=== PATIENT | male | born 1955 | race Caucasian/White ===

== ENCOUNTER 2017-10-18 09:35 | Inpatient (IN) | payer OTHER ==
[2017-10-18] MEDS: ACETAMINOPHEN 325 MG TAB PO ×2 (10:25→14:50)
[2017-10-18] MEDS: SODIUM CHLORIDE 0.9% 1L BAG IV* (10:25)
[2017-10-18] MEDS: CEFEPIME 2GM/50 ML (PMX) 50 ML IVPB (10:25)
[2017-10-18] MEDS: morphine 4 MG/ML VIAL IV (10:25)
[2017-10-18] MEDS: ONDANSETRON 4 MG INJ IV (10:25)
[2017-10-18 10:38] LABS: WHITE BLOOD COUNT 25.1 10^3/ul (4.8-10.8)
[2017-10-18 10:38] LABS: ABNORMAL IP MESSAGE 1; HEMATOCRIT 35.3 % (42.0-52.0); HEMOGLOBIN 11.2 g/dl (14.0-18.0); MEAN CORPUSCULAR HEMOGLOBIN 25.3 pg (29.0-33.0); MEAN CORPUSCULAR HGB CONC 31.7 g/dl (32.0-37.0); MEAN CORPUSCULAR VOLUME 79.7 fl (82.0-101.0); MEAN PLATELET VOLUME 10.4 fl (7.4-10.4); PLATELET COUNT 595 10^3/UL (140-415); POSITIVE DIFF @See below; RED BLOOD COUNT 4.43 10^6/ul (4.70-6.10); RED CELL DISTRIBUTION WIDTH 14.4 % (11.5-14.5)
[2017-10-18 10:40] LABS: ADD MAN DIFF? YES
[2017-10-18 10:53] LABS: INR 1.08; PROTIME 14.1 Sec (11.9-14.9); PT RATIO 1.1
[2017-10-18 10:55] LABS: ALANINE AMINOTRANSFERASE 41 IU/L (13-69); ALBUMIN 3.7 g/dl (3.3-4.9); ALBUMIN/GLOBULIN RATIO 0.84; ALKALINE PHOSPHATASE 123 IU/L (42-121); ANION GAP 19 (8-16); ASPARTATE AMINO TRANSFERASE 29 IU/L (15-46); BILIRUBIN,INDIRECT 0.4 mg/dl (0-1.1); BILIRUBIN,TOTAL 0.4 mg/dl (0.2-1.3); BLOOD UREA NITROGEN 27 mg/dl (7-20); CALCIUM 8.4 mg/dl (8.4-10.2); CARBON DIOXIDE 23 mmol/L (21-31); CHLORIDE 102 mmol/L (97-110); CREATININE 1.99 mg/dl (0.61-1.24); GLUCOSE 352 mg/dl (70-220); POTASSIUM 4.6 mmol/L (3.5-5.1); SODIUM 139 mmol/L (135-144); TOTAL PROTEIN 8.1 g/dl (6.1-8.1)
[2017-10-18 10:57] LABS: LACTIC ACID 4.3 mmol/L (0.5-2.0)
[2017-10-18 11:10] LABS: ANISOCYTOSIS 1+ (0-0); BAND NEUTROPHILS #M 0.5 10^3/ul (0.0-0.6); BAND NEUTROPHILS % (M) 2 % (0-4); HYPOCHROMASIA 1+ (0-0); LYMPHOCYTES #M 2.5 10^3/ul (0.8-2.9); LYMPHOCYTES % (M) 10 % (15-51); MONOCYTE #M 1.7 10^3/ul (0.3-0.9); MONOCYTES % (M) 7 % (0-11); PLATELET ESTIMATE NORMAL; POIKILOCYTOSIS 1+ (0-0); SEG NEUT #M 20.5 10^3/ul (1.7-7.5); SEGMENTED NEUTROPHILS (M) % 81 % (39-77)
[2017-10-18 11:11] LABS: TROPONIN-I 0.347 ng/ml (0.00-0.12)
[2017-10-18 11:13] LABS: ADD UMIC YES; UR ASCORBIC ACID NEGATIVE (NEGATIVE); UR BILIRUBIN (Dip) NEGATIVE (NEGATIVE); UR BLOOD (Dip) 1+ mg/dL (NEGATIVE); UR CLARITY CLOUDY (CLEAR); UR COLOR YELLOW (YELLOW); UR GLUCOSE (Dip) 2+ mg/dL (NEGATIVE); UR KETONES (Dip) TRACE mg/dL (NEGATIVE); UR LEUKOCYTE ESTERASE (Dip) NEGATIVE Leu/ul (NEGATIVE); UR MUCUS FEW /HPF (NONE SEEN); UR NITRITE (Dip) NEGATIVE (NEGATIVE); UR RBC 4 /HPF (0-5); UR SPECIFIC GRAVITY (Dip) 1.019 (1.003-1.030); UR SQUAMOUS EPITHELIAL CELL FEW /HPF (FEW); UR TOTAL PROTEIN (Dip) 3+ mg/dl (NEGATIVE); UR UROBILINOGEN (Dip) NEGATIVE (NEGATIVE); UR WBC 9 /HPF (0-5)
[2017-10-18] MEDS: VANCOMYCIN 1 GM (PMX) 250 ML IVPB (11:21)
[2017-10-18] MEDS: ASPIRIN 325 MG TAB PO (11:22)
[2017-10-18] MEDS ORDERED: DOCUSATE SODIUM 100 MG CAP PO (11:30)
[2017-10-18] MEDS ORDERED: AZITHROMYCIN 500MG/NS (PMX) 250 ML IV (11:30)
[2017-10-18] MEDS ORDERED: ONDANSETRON 4 MG INJ IV (11:30)
[2017-10-18] MEDS ORDERED: ACETAMINOPHEN 325 MG TAB PO (11:30)
[2017-10-18 11:34] LABS: PARTIAL THROMBOPLASTIN TIME 92.6 Sec (25.0-35.0)
[2017-10-18] MEDS ORDERED: DEXTROSE 50% 50 ML SYRINGE IV ×2 (12:00)
[2017-10-18] MEDS: INSULIN ASPART [NOVOLOG] 3 ML PEN SC ×3 (12:00→21:04)
[2017-10-18] MEDS ORDERED: GLUCAGON 1 MG INJ IM (12:00)
[2017-10-18] MEDS ORDERED: GLUCOSE GEL 15 GRAM TUBE BUCCAL (12:00)
[2017-10-18] MEDS ORDERED: GLUCOSE GEL 15 GRAM TUBE PO ×2 (12:00)
[2017-10-18 13:27] LABS: HEMOGLOBIN A1C 10.9 % (0-5.9)
[2017-10-18 13:54] LABS: IRON < 10 ug/dl (35-150)
[2017-10-18 14:01] LABS: TOTAL IRON BINDING CAPACITY 233 ug/dl (241-421)
[2017-10-18] MEDS: CEFTRIAXONE 1 GM/50 ML (PMX) 50 ML IVPB (14:51)
[2017-10-18] MEDS: SOD CHLORIDE 0.9% 1,000 ML IV ×2 (14:52→21:48)
[2017-10-18 15:37] LABS: LACTIC ACID 2.1 mmol/L (0.5-2.0)
[2017-10-18 17:15] LABS: CREATINE KINASE 263 IU/L (23-200)
[2017-10-18 17:27] LABS: CK INDEX 1.5
[2017-10-18 17:31] LABS: CK-MB 3.87 ng/ml (0.0-2.4); TROPONIN-I 0.647 ng/ml (0.00-0.12)
[2017-10-18] MEDS: AZITHROMYCIN 500MG/NS (PMX) 250 ML IV (17:43)
[2017-10-18] MEDS ORDERED: CEPASTAT LOZENGE MT (18:30)
[2017-10-18 19:22] LABS: CREATINE KINASE 276 IU/L (23-200)
[2017-10-18 19:36] LABS: CK INDEX 1.5
[2017-10-18 19:44] LABS: CK-MB 4.18 ng/ml (0.0-2.4); TROPONIN-I 0.777 ng/ml (0.00-0.12)
[2017-10-18] MEDS: GUAIFENESIN/DM 5ML CUP PO (20:07)
[2017-10-18] MEDS: ALBUTEROL 0.083% (NEB) 2.5 MG/3 ML AMP HHN (20:42)
[2017-10-18] MEDS: ATORVASTATIN 40 MG TAB PO (21:00)
[2017-10-18] MEDS: INSULIN GLARGINE [LANtus] 3 ML PEN SC (21:05)
[2017-10-18] MEDS: ENOXAPARIN 60 MG/0.6 ML SYG SC (21:06)
[2017-10-18] MEDS: morphine 2 MG INJ IV (21:42)
[2017-10-18] MEDS: NITROGLYCERIN (SL) 0.4 MG TAB SL ×2 (21:59→22:12)
[2017-10-18 22:13] LABS: ADD MAN DIFF? NO
[2017-10-18 22:16] LABS: WHITE BLOOD COUNT 26.5 10^3/ul (4.8-10.8)
[2017-10-18 22:16] LABS: ABNORMAL IP MESSAGE 1; BASOPHIL # 0.1 10^3/ul (0.0-0.1); BASOPHILS % 0.3 % (0.0-2.0); HEMATOCRIT 31.1 % (42.0-52.0); LYMPHOCYTES % 3.8 % (15.0-51.0); MEAN CORPUSCULAR HEMOGLOBIN 25.4 pg (29.0-33.0); MEAN CORPUSCULAR HGB CONC 32.2 g/dl (32.0-37.0); MEAN CORPUSCULAR VOLUME 78.9 fl (82.0-101.0); MONOCYTE # 1.3 10^3/ul (0.3-0.9); MONOCYTES % 4.8 % (0.0-11.0); NEUTROPHIL # 23.4 10^3/ul (1.6-7.5); NEUTROPHILS % 88.5 % (39.0-77.0); PLATELET COUNT 560 10^3/UL (140-415); POSITIVE DIFF @See below; RED BLOOD COUNT 3.94 10^6/ul (4.70-6.10); RED CELL DISTRIBUTION WIDTH 14.6 % (11.5-14.5)
[2017-10-18 22:39] LABS: PARTIAL THROMBOPLASTIN TIME 56.5 Sec (25.0-35.0)
[2017-10-18 22:44] LABS: ANION GAP 18 (8-16); BLOOD UREA NITROGEN 30 mg/dl (7-20); CALCIUM 7.5 mg/dl (8.4-10.2); CARBON DIOXIDE 20 mmol/L (21-31); CHLORIDE 105 mmol/L (97-110); CREATININE 2.08 mg/dl (0.61-1.24); GLUCOSE 316 mg/dl (70-220); POTASSIUM 4.5 mmol/L (3.5-5.1); SODIUM 138 mmol/L (135-144)
[2017-10-18 22:47] LABS: LACTIC ACID 2.1 mmol/L (0.5-2.0)
[2017-10-18 23:26] LABS: INR 1.13; PROTIME 14.7 Sec (11.9-14.9); PT RATIO 1.1
[2017-10-18] MEDS: HEPARIN 1000 UNITS/ML 10 ML INJ IV (23:26)
[2017-10-18] MEDS: HEPARIN 25000 UNITS/250 ML 250 ML IV (23:27)
[2017-10-19 00:21] LABS: TROPONIN-I 0.728 ng/ml (0.00-0.12)
[2017-10-19] MEDS: ALBUTEROL 0.083% (NEB) 2.5 MG/3 ML AMP HHN (01:36)
[2017-10-19] MEDS: ONDANSETRON 4 MG INJ IV ×2 (01:50→09:00)
[2017-10-19] MEDS: PANTOPRAZOLE (EC) 40 MG TAB PO (06:00)
[2017-10-19 08:32] LABS: ADD MAN DIFF? NO
[2017-10-19] MEDS: ASPIRIN (EC) 81 MG TAB PO (08:49)
[2017-10-19] MEDS: FERROUS SULFATE (EC) 325 MG TAB PO (08:49)
[2017-10-19] MEDS: AMLODIPINE 5 MG TAB PO (08:49)
[2017-10-19] MEDS: BENAZEPRIL 20 MG TAB PO (08:50)
[2017-10-19 08:51] LABS: PARTIAL THROMBOPLASTIN TIME 68.6 Sec (25.0-35.0)
[2017-10-19 08:52] LABS: ABNORMAL IP MESSAGE 1; BASOPHIL # 0.1 10^3/ul (0.0-0.1); BASOPHILS % 0.3 % (0.0-2.0); HEMATOCRIT 30.4 % (42.0-52.0); HEMOGLOBIN 9.8 g/dl (14.0-18.0); LYMPHOCYTES # 1.1 10^3/ul (0.8-2.9); LYMPHOCYTES % 4.5 % (15.0-51.0); MEAN CORPUSCULAR HEMOGLOBIN 25.8 pg (29.0-33.0); MEAN CORPUSCULAR HGB CONC 32.2 g/dl (32.0-37.0); MEAN PLATELET VOLUME 10.4 fl (7.4-10.4); MONOCYTE # 1.4 10^3/ul (0.3-0.9); MONOCYTES % 5.7 % (0.0-11.0); NEUTROPHIL # 22.1 10^3/ul (1.6-7.5); NEUTROPHILS % 87.9 % (39.0-77.0); PLATELET COUNT 563 10^3/UL (140-415); POSITIVE DIFF @See below; RED CELL DISTRIBUTION WIDTH 14.6 % (11.5-14.5)
[2017-10-19 08:52] LABS: WHITE BLOOD COUNT 25.1 10^3/ul (4.8-10.8)
[2017-10-19 08:53] LABS: ALBUMIN 3.3 g/dl (3.3-4.9); ANION GAP 18 (8-16); BLOOD UREA NITROGEN 34 mg/dl (7-20); CALCIUM 7.4 mg/dl (8.4-10.2); CARBON DIOXIDE 21 mmol/L (21-31); CHLORIDE 104 mmol/L (97-110); CREATININE 2.53 mg/dl (0.61-1.24); GLUCOSE 343 mg/dl (70-220); MAGNESIUM 1.4 mg/dl (1.7-2.5); PHOSPHORUS 3.4 mg/dl (2.5-4.9); POTASSIUM 4.7 mmol/L (3.5-5.1); SODIUM 138 mmol/L (135-144)
[2017-10-19] MEDS: INSULIN ASPART [NOVOLOG] 3 ML PEN SC ×2 (08:57→11:50)
[2017-10-19] MEDS: INSULIN GLARGINE [LANtus] 3 ML PEN SC (08:57)
[2017-10-19] MEDS: FUROSEMIDE 40 MG INJ IV ×3 (10:39→17:59)
[2017-10-19] MEDS: CEFTRIAXONE 1 GM/50 ML (PMX) 50 ML IVPB (10:39)
[2017-10-19 10:56] LABS: AADO2 Arterial 600.3 mmHg (7.0-24.0); Allen Test ACCEPTAB; Arterial Base Excess -5.3 mmol/L (-3.0-3); Arterial Blood Gas Oxygen Sat 96.3 mmHG (95.0-98.0); Arterial COHb 0.3 % (0.0-3.0); Arterial Fraction of Oxyhgb 95.8 % (93.0-99.0); Arterial HCO3 18.3 mmol/L (22.0-26.0); Arterial MetHb 0.2 % (0.0-1.5); Arterial Total Hemglobin 10.9 g/dl (12.0-18.0); Arterial pCO2 29.4 mmhg (35-45); MODE MASK - NRB; Site Right Radial
[2017-10-19] MEDS: MAGNESIUM SULFATE 2 GM/50 ML 50 ML IVPB (12:50)
[2017-10-19] MEDS ORDERED: VANCOMYCIN IV PER PHARMACY XX (13:00)
[2017-10-19] MEDS: CEFEPIME 1GM/50 ML (PMX) 50 ML IVPB (13:18)
[2017-10-19] MEDS ORDERED: DEXTROSE 50% 50 ML SYRINGE IV ×2 (15:30)
[2017-10-19 15:33] LABS: PARTIAL THROMBOPLASTIN TIME 71.1 Sec (25.0-35.0)
[2017-10-19] MEDS: INSULIN HUMAN REGULAR 100 UNIT in SOD CHLORIDE 0.9% 99 ML IV (16:12)
[2017-10-19] MEDS: HEPARIN 25000 UNITS/250 ML 250 ML IV (16:18)
[2017-10-19] MEDS ORDERED: PROPOFOL 100 ML (17:22)
[2017-10-19] MEDS: PROPOFOL 100 ML IV ×3 (17:49→23:06)
[2017-10-19] MEDS: morphine 2 MG INJ IV (17:52)
[2017-10-19 18:25] LABS: AADO2 Arterial 616.9 mmHg (7.0-24.0); Allen Test ACCEPTAB; Arterial Base Excess -6.4 mmol/L (-3.0-3); Arterial Blood Gas Oxygen Sat 91.3 mmHG (95.0-98.0); Arterial COHb 0.3 % (0.0-3.0); Arterial Fraction of Oxyhgb 90.8 % (93.0-99.0); Arterial HCO3 18.1 mmol/L (22.0-26.0); Arterial MetHb 0.2 % (0.0-1.5); Arterial Total Hemglobin 11.2 g/dl (12.0-18.0); Arterial pCO2 32.6 mmhg (35-45); MODE MASK - NRB; Site Right Radial
[2017-10-19 19:14] LABS: AADO2 Arterial 558.1 mmHg (7.0-24.0); Allen Test ACCEPTAB; Arterial Base Excess -6.2 mmol/L (-3.0-3); Arterial Blood Gas Oxygen Sat 97.8 mmHG (95.0-98.0); Arterial COHb 0.3 % (0.0-3.0); Arterial Fraction of Oxyhgb 97.1 % (93.0-99.0); Arterial HCO3 19.6 mmol/L (22.0-26.0); Arterial MetHb 0.4 % (0.0-1.5); Arterial pCO2 39.9 mmhg (35-45); MODE VENT - AC; Site Right Radial
[2017-10-19] MEDS: ACCU-CHEK XX ×5 (19:29→23:41)
[2017-10-19] MEDS: AZITHROMYCIN 500MG/NS (PMX) 250 ML IV (20:16)
[2017-10-19] MEDS: VANCOMYCIN 1.25 GM in SOD CHLORIDE 0.9% 250 ML IVPB ×2 (20:48→21:48)
[2017-10-19 23:07] LABS: PARTIAL THROMBOPLASTIN TIME 57.4 Sec (25.0-35.0)
[2017-10-19] MEDS: ATORVASTATIN 40 MG TAB PO (23:49)
[2017-10-20] MEDS: ACCU-CHEK XX ×20 (00:42→19:49)
[2017-10-20] MEDS: PROPOFOL 100 ML IV ×5 (02:43→22:01)
[2017-10-20] MEDS: ACETAMINOPHEN 325 MG TAB PO (05:03)
[2017-10-20] MEDS: PANTOPRAZOLE 40 MG INJ IV (05:03)
[2017-10-20 05:27] LABS: ADD MAN DIFF? NO
[2017-10-20 05:46] LABS: ABNORMAL IP MESSAGE 1; BASOPHIL # 0.1 10^3/ul (0.0-0.1); BASOPHILS % 0.2 % (0.0-2.0); EOSINOPHILS # 0.1 10^3/ul (0.0-0.5); EOSINOPHILS % 0.5 % (0.0-7.0); HEMATOCRIT 26.6 % (42.0-52.0); HEMOGLOBIN 8.5 g/dl (14.0-18.0); LYMPHOCYTES # 1.4 10^3/ul (0.8-2.9); LYMPHOCYTES % 5.5 % (15.0-51.0); MEAN CORPUSCULAR HEMOGLOBIN 25.7 pg (29.0-33.0); MEAN CORPUSCULAR VOLUME 80.4 fl (82.0-101.0); MEAN PLATELET VOLUME 10.9 fl (7.4-10.4); MONOCYTE # 1.4 10^3/ul (0.3-0.9); MONOCYTES % 5.5 % (0.0-11.0); NEUTROPHIL # 22.8 10^3/ul (1.6-7.5); NEUTROPHILS % 87.7 % (39.0-77.0); POSITIVE DIFF @See below; RED BLOOD COUNT 3.31 10^6/ul (4.70-6.10); RED CELL DISTRIBUTION WIDTH 14.8 % (11.5-14.5)
[2017-10-20 05:53] LABS: PARTIAL THROMBOPLASTIN TIME 46.8 Sec (25.0-35.0)
[2017-10-20 06:08] LABS: LACTIC ACID 1.1 mmol/L (0.5-2.0)
[2017-10-20 06:11] LABS: ALBUMIN 2.5 g/dl (3.3-4.9); ANION GAP 21 (8-16); BLOOD UREA NITROGEN 48 mg/dl (7-20); CALCIUM 6.7 mg/dl (8.4-10.2); CARBON DIOXIDE 19 mmol/L (21-31); CHLORIDE 108 mmol/L (97-110); CREATININE 3.87 mg/dl (0.61-1.24); GLUCOSE 93 mg/dl (70-220); PHOSPHORUS 4.9 mg/dl (2.5-4.9); POTASSIUM 4.7 mmol/L (3.5-5.1); SODIUM 143 mmol/L (135-144)
[2017-10-20 06:15] LABS: AADO2 Arterial 494.3 mmHg (7.0-24.0); Allen Test ACCEPTAB; Arterial Base Excess -6.2 mmol/L (-3.0-3); Arterial Blood Gas Oxygen Sat 97.3 mmHG (95.0-98.0); Arterial COHb 0.3 % (0.0-3.0); Arterial Fraction of Oxyhgb 96.7 % (93.0-99.0); Arterial HCO3 19.9 mmol/L (22.0-26.0); Arterial MetHb 0.3 % (0.0-1.5); Arterial Total Hemglobin 10.8 g/dl (12.0-18.0); MODE VENT - AC; Site Right Radial
[2017-10-20 06:16] LABS: ANION GAP 20 (8-16); BLOOD UREA NITROGEN 48 mg/dl (7-20); CALCIUM 7.2 mg/dl (8.4-10.2); CARBON DIOXIDE 21 mmol/L (21-31); CHLORIDE 106 mmol/L (97-110); CREATININE 4.05 mg/dl (0.61-1.24); GLUCOSE 97 mg/dl (70-220); POTASSIUM 4.6 mmol/L (3.5-5.1); SODIUM 142 mmol/L (135-144)
[2017-10-20 06:28] LABS: PLATELET COUNT 450 10^3/UL (140-415)
[2017-10-20] MEDS: SOD CHLORIDE 0.9% 500 ML IV (06:41)
[2017-10-20] MEDS: HEPARIN 1000 UNITS/ML 10 ML INJ IV (07:04)
[2017-10-20] MEDS: FERROUS SULFATE (EC) 325 MG TAB PO (08:29)
[2017-10-20] MEDS: ASPIRIN (EC) 81 MG TAB PO (08:29)
[2017-10-20 09:08] LABS: ANISOCYTOSIS 2+ (0-0); BAND NEUTROPHILS #M 1.8 10^3/ul (0.0-0.6); BAND NEUTROPHILS % (M) 7 % (0-4); EOSINOPHILS % (M) 2 % (0-7); LYMPHOCYTES % (M) 4 % (15-51); MICROCYTOSIS 2+ (0-0); MONOCYTE #M 0.7 10^3/ul (0.3-0.9); MONOCYTES % (M) 3 % (0-11); PLATELET ESTIMATE NORMAL; POIKILOCYTOSIS 1+ (0-0); POLYCHROMASIA 3+ (0-0); REACTIVE LYMPHOCYTES #M 0.5 10^3/ul (0.0-0.0); REACTIVE LYMPHOCYTES% (M) 2 % (0-0); SEGMENTED NEUTROPHILS (M) % 83 % (39-77); SMUDGE%M 3 % (0-0)
[2017-10-20] MEDS: ALBUMIN HUMAN 25% 100 ML IV (10:28)
[2017-10-20] MEDS: MEROPENEM 500MG/50 ML (PMX) 50 ML IVPB ×2 (12:16→21:12)
[2017-10-20 14:19] LABS: PARTIAL THROMBOPLASTIN TIME 68.5 Sec (25.0-35.0)
[2017-10-20] MEDS ORDERED: GLUCAGON 1 MG INJ IM (15:00)
[2017-10-20] MEDS ORDERED: GLUCOSE GEL 15 GRAM TUBE BUCCAL (15:00)
[2017-10-20] MEDS ORDERED: GLUCOSE GEL 15 GRAM TUBE PO ×2 (15:00)
[2017-10-20] MEDS ORDERED: VANCOMYCIN 1 GM in NS 250 ML IVPB ×2 (15:00→21:00)
[2017-10-20] MEDS: INSULIN GLARGINE [LANtus] 3 ML PEN SC (15:15)
[2017-10-20] MEDS: AZITHROMYCIN 500MG/NS (PMX) 250 ML IV (16:59)
[2017-10-20] MEDS: INSULIN ASPART [NOVOLOG] 3 ML PEN SC ×2 (17:00→21:00)
[2017-10-20] MEDS: HEPARIN 25000 UNITS/250 ML 250 ML IV (17:06)
[2017-10-20 17:29] LABS: BLOOD UREA NITROGEN 51 mg/dl (7-20); CALCIUM 6.8 mg/dl (8.4-10.2); CARBON DIOXIDE 18 mmol/L (21-31); CREATININE 5.26 mg/dl (0.61-1.24); GLUCOSE 62 mg/dl (70-220); POTASSIUM 4.5 mmol/L (3.5-5.1); SODIUM 139 mmol/L (135-144)
[2017-10-20 17:49] LABS: ANION GAP 19 (8-16); CHLORIDE 107 mmol/L (97-110)
[2017-10-20 19:54] LABS: PARTIAL THROMBOPLASTIN TIME 51.7 Sec (25.0-35.0)
[2017-10-20] MEDS: ATORVASTATIN 40 MG TAB PO (21:14)
[2017-10-20] MEDS: DEXTROSE 50% 50 ML SYRINGE IV (21:17)
[2017-10-21] MEDS: INSULIN ASPART [NOVOLOG] 3 ML PEN SC ×6 (01:00→21:00)
[2017-10-21] MEDS: DEXTROSE 50% 50 ML SYRINGE IV ×6 (01:50→18:26)
[2017-10-21] MEDS: DEXTROSE 5%-0.45% NACL 500 ML IV (02:28)
[2017-10-21] MEDS: PROPOFOL 100 ML IV ×8 (03:21→21:16)
[2017-10-21 05:41] LABS: ADD UMIC YES; UR AMORPHOUS CRYSTAL MODERATE /HPF (NONE SEEN); UR ASCORBIC ACID NEGATIVE (NEGATIVE); UR BACTERIA FEW /HPF (NONE SEEN); UR BILIRUBIN (Dip) NEGATIVE (NEGATIVE); UR BLOOD (Dip) 3+ mg/dL (NEGATIVE); UR CLARITY TURBID (CLEAR); UR COLOR AMBER (YELLOW); UR GLUCOSE (Dip) 1+ mg/dL (NEGATIVE); UR KETONES (Dip) NEGATIVE (NEGATIVE); UR LEUKOCYTE ESTERASE (Dip) TRACE Leu/ul (NEGATIVE); UR NITRITE (Dip) NEGATIVE (NEGATIVE); UR RBC > 182 /HPF (0-5); UR SPECIFIC GRAVITY (Dip) 1.019 (1.003-1.030); UR SQUAMOUS EPITHELIAL CELL FEW /HPF (FEW); UR TOTAL PROTEIN (Dip) 2+ mg/dl (NEGATIVE); UR UROBILINOGEN (Dip) NEGATIVE (NEGATIVE); UR WBC 18 /HPF (0-5)
[2017-10-21 06:06] LABS: ANION GAP 20 (8-16); BLOOD UREA NITROGEN 57 mg/dl (7-20); CALCIUM 6.9 mg/dl (8.4-10.2); CARBON DIOXIDE 19 mmol/L (21-31); CHLORIDE 107 mmol/L (97-110); GLUCOSE 60 mg/dl (70-220); PHOSPHORUS 7.1 mg/dl (2.5-4.9); POTASSIUM 4.3 mmol/L (3.5-5.1); SODIUM 142 mmol/L (135-144)
[2017-10-21 06:07] LABS: ALBUMIN 2.9 g/dl (3.3-4.9); ANION GAP 19 (8-16); BLOOD UREA NITROGEN 56 mg/dl (7-20); CALCIUM 6.8 mg/dl (8.4-10.2); CARBON DIOXIDE 19 mmol/L (21-31); CHLORIDE 108 mmol/L (97-110); CREATININE 6.31 mg/dl (0.61-1.24); GLUCOSE 62 mg/dl (70-220); MAGNESIUM 2.2 mg/dl (1.7-2.5); PHOSPHORUS 7.1 mg/dl (2.5-4.9); POTASSIUM 4.4 mmol/L (3.5-5.1); SODIUM 142 mmol/L (135-144)
[2017-10-21 06:12] LABS: CREATININE,URINE RANDOM 209.76 mg/dl (20-370)
[2017-10-21 06:12] LABS: SODIUM,URINE RANDOM 34 mmol/L (30-90)
[2017-10-21 06:15] LABS: VANCOMYCIN,RANDOM 12.8 ug/ml
[2017-10-21] MEDS: PANTOPRAZOLE 40 MG INJ IV (06:22)
[2017-10-21] MEDS: HEPARIN 25000 UNITS/250 ML 250 ML IV (06:26)
[2017-10-21 06:33] LABS: ABNORMAL IP MESSAGE 1; MEAN CORPUSCULAR HEMOGLOBIN 25.7 pg (29.0-33.0); MEAN CORPUSCULAR HGB CONC 32.9 g/dl (32.0-37.0); MEAN CORPUSCULAR VOLUME 78.4 fl (82.0-101.0); MEAN PLATELET VOLUME 10.4 fl (7.4-10.4); PLATELET COUNT 472 10^3/UL (140-415); POSITIVE DIFF @See below; RED BLOOD COUNT 2.68 10^6/ul (4.70-6.10); RED CELL DISTRIBUTION WIDTH 15.4 % (11.5-14.5)
[2017-10-21 06:50] LABS: ADD MAN DIFF? YES; HEMOGLOBIN 6.9 g/dl (14.0-18.0)
[2017-10-21] MEDS: INSULIN GLARGINE [LANtus] 3 ML PEN SC (08:00)
[2017-10-21] MEDS ORDERED: INSULIN GLARGINE [LANtus] 3 ML PEN SC (08:00)
[2017-10-21] MEDS: ASPIRIN (EC) 81 MG TAB PO (08:43)
[2017-10-21] MEDS: FERROUS SULFATE (EC) 325 MG TAB PO (08:43)
[2017-10-21] MEDS: MEROPENEM 500MG/50 ML (PMX) 50 ML IVPB ×2 (08:44→21:16)
[2017-10-21 08:56] LABS: ANISOCYTOSIS 1+ (0-0); BAND NEUTROPHILS #M 0.6 10^3/ul (0.0-0.6); BAND NEUTROPHILS % (M) 3 % (0-4); EOSINOPHILS % (M) 4 % (0-7); LYMPHOCYTES #M 2.2 10^3/ul (0.8-2.9); LYMPHOCYTES % (M) 10 % (15-51); METAMYELOCYTES #M 0.2 10^3/ul (0.0-0.0); METAMYELOCYTES %M 1 % (0-0); MICROCYTOSIS 1+ (0-0); MONOCYTE #M 0.2 10^3/ul (0.3-0.9); MONOCYTES % (M) 1 % (0-11); PLATELET ESTIMATE INCREASED; SEGMENTED NEUTROPHILS (M) % 81 % (39-77); SMUDGE%M 1 % (0-0)
[2017-10-21] MEDS ORDERED: INFLUENZA VIRUS VACCINE 0.5 ML (DISPENSING) IM* (09:00)
[2017-10-21 09:11] LABS: HAAIG REFLEX REFLEX FILED
[2017-10-21 09:17] LABS: AADO2 Arterial 285.3 mmHg (7.0-24.0); Allen Test ACCEPTAB; Arterial Base Excess -1.2 mmol/L (-3.0-3); Arterial Blood Gas Oxygen Sat 97.6 mmHG (95.0-98.0); Arterial COHb 0.3 % (0.0-3.0); Arterial HCO3 22.7 mmol/L (22.0-26.0); Arterial MetHb 0.3 % (0.0-1.5); Arterial Total Hemglobin 8.5 g/dl (12.0-18.0); Arterial pCO2 34.2 mmhg (35-45); MODE VENT - AC; Site Right Radial
[2017-10-21] MEDS: ACETAMINOPHEN 325 MG TAB PO (10:41)
[2017-10-21 10:53] LABS: COMPLEMENT C3 124 mg/dl (88-165); COMPLEMENT C4 54 mg/dl (14-44)
[2017-10-21 10:53] LABS: IMMEDIATE SPIN CROSSMATCH 1 2
[2017-10-21] MEDS: VANCOMYCIN 1.25 GM in SOD CHLORIDE 0.9% 250 ML IVPB (11:43)
[2017-10-21 14:14] LABS: HEPATITIS B SURFACE ANTIGEN NEGATIVE (NEGATIVE)
[2017-10-21 14:33] LABS: HEPATITIS B CORE ANTIBODY REACTIVE (NEGATIVE); HEPATITIS C VIRAL ANTIBODY NEGATIVE (NEGATIVE)
[2017-10-21 16:56] LABS: HEMATOCRIT 23.9 % (42.0-52.0)
[2017-10-21 17:02] LABS: CREATININE, RANDOM URINE 260 mg/dL (20-370); MICROALBUMIN 166.8 mg/dL; MICROALBUMIN/CREATININE RATIO 642 (<30)
[2017-10-21] MEDS: AZITHROMYCIN 500MG/NS (PMX) 250 ML IV (17:37)
[2017-10-21 20:31] LABS: RHEUMATOID FACTOR NEGATIVE (NEGATIVE)
[2017-10-21] MEDS: ATORVASTATIN 40 MG TAB PO (21:16)
[2017-10-22] MEDS: PROPOFOL 100 ML IV ×7 (00:07→21:33)
[2017-10-22] MEDS: DEXTROSE 50% 50 ML SYRINGE IV ×2 (00:16→04:46)
[2017-10-22] MEDS: INSULIN ASPART [NOVOLOG] 3 ML PEN SC ×6 (00:40→21:00)
[2017-10-22] MEDS: PANTOPRAZOLE 40 MG INJ IV (04:53)
[2017-10-22 04:55] LABS: ADD MAN DIFF? NO
[2017-10-22 04:57] LABS: WHITE BLOOD COUNT 20.2 10^3/ul (4.8-10.8)
[2017-10-22 04:57] LABS: ABNORMAL IP MESSAGE 1; BASOPHIL # 0.1 10^3/ul (0.0-0.1); BASOPHILS % 0.4 % (0.0-2.0); EOSINOPHILS # 0.7 10^3/ul (0.0-0.5); EOSINOPHILS % 3.6 % (0.0-7.0); HEMATOCRIT 23.4 % (42.0-52.0); HEMOGLOBIN 7.7 g/dl (14.0-18.0); LYMPHOCYTES # 1.5 10^3/ul (0.8-2.9); LYMPHOCYTES % 7.6 % (15.0-51.0); MEAN CORPUSCULAR HEMOGLOBIN 25.8 pg (29.0-33.0); MEAN CORPUSCULAR HGB CONC 32.9 g/dl (32.0-37.0); MEAN CORPUSCULAR VOLUME 78.3 fl (82.0-101.0); MEAN PLATELET VOLUME 10.2 fl (7.4-10.4); MONOCYTE # 1.6 10^3/ul (0.3-0.9); MONOCYTES % 7.8 % (0.0-11.0); NEUTROPHILS % 79.6 % (39.0-77.0); PLATELET COUNT 472 10^3/UL (140-415); POSITIVE DIFF @See below; RED BLOOD COUNT 2.99 10^6/ul (4.70-6.10); RED CELL DISTRIBUTION WIDTH 14.8 % (11.5-14.5)
[2017-10-22 05:20] LABS: ANION GAP 19 (8-16); BLOOD UREA NITROGEN 49 mg/dl (7-20); CALCIUM 9.1 mg/dl (8.4-10.2); CARBON DIOXIDE 23 mmol/L (21-31); CHLORIDE 105 mmol/L (97-110); CREATININE 6.54 mg/dl (0.61-1.24); GLUCOSE 60 mg/dl (70-220); MAGNESIUM 2.1 mg/dl (1.7-2.5); PHOSPHORUS 9.5 mg/dl (2.5-4.9); POTASSIUM 4.5 mmol/L (3.5-5.1); SODIUM 142 mmol/L (135-144)
[2017-10-22] MEDS: DEXTROSE 5% 1,000 ML IV (06:22)
[2017-10-22] MEDS: INSULIN GLARGINE [LANtus] 3 ML PEN SC (07:49)
[2017-10-22] MEDS: FERROUS SULFATE (EC) 325 MG TAB PO (08:20)
[2017-10-22] MEDS: MEROPENEM 500MG/50 ML (PMX) 50 ML IVPB ×2 (08:20→21:32)
[2017-10-22] MEDS: ASPIRIN (EC) 81 MG TAB PO (08:20)
[2017-10-22 10:54] LABS: AADO2 Arterial 179.4 mmHg (7.0-24.0); Allen Test ACCEPTAB; Arterial Base Excess -4.7 mmol/L (-3.0-3); Arterial Blood Gas Oxygen Sat 92.9 mmHG (95.0-98.0); Arterial COHb 0.3 % (0.0-3.0); Arterial Fraction of Oxyhgb 92.4 % (93.0-99.0); Arterial HCO3 19.4 mmol/L (22.0-26.0); Arterial MetHb 0.2 % (0.0-1.5); Arterial Total Hemglobin 7.4 g/dl (12.0-18.0); Arterial pCO2 31.3 mmhg (35-45); MODE VENT - AC
[2017-10-22] MEDS: SEVELAMER CARBONATE 2.4 GM PKT PO ×2 (11:18→16:59)
[2017-10-22 13:22] LABS: ANTI-DNA (DOUBLE STRANDED) <95 U/mL (< 301)
[2017-10-22] MEDS: AZITHROMYCIN 500MG/NS (PMX) 250 ML IV (17:00)
[2017-10-22] MEDS: ATORVASTATIN 40 MG TAB PO (21:33)
[2017-10-23] MEDS: INSULIN ASPART [NOVOLOG] 3 ML PEN SC ×6 (00:56→21:40)
[2017-10-23] MEDS: PROPOFOL 100 ML IV ×5 (00:57→21:27)
[2017-10-23] MEDS: DEXTROSE 5% 1,000 ML IV ×2 (04:02→22:30)
[2017-10-23 04:51] LABS: ADD MAN DIFF? NO
[2017-10-23 04:53] LABS: ABNORMAL IP MESSAGE 1; BASOPHIL # 0.1 10^3/ul (0.0-0.1); BASOPHILS % 0.4 % (0.0-2.0); EOSINOPHILS # 0.7 10^3/ul (0.0-0.5); EOSINOPHILS % 3.3 % (0.0-7.0); HEMATOCRIT 22.7 % (42.0-52.0); HEMOGLOBIN 7.6 g/dl (14.0-18.0); LYMPHOCYTES # 1.8 10^3/ul (0.8-2.9); LYMPHOCYTES % 8.3 % (15.0-51.0); MEAN CORPUSCULAR HEMOGLOBIN 26.1 pg (29.0-33.0); MEAN CORPUSCULAR HGB CONC 33.5 g/dl (32.0-37.0); MEAN PLATELET VOLUME 10.4 fl (7.4-10.4); MONOCYTE # 1.7 10^3/ul (0.3-0.9); NEUTROPHIL # 16.8 10^3/ul (1.6-7.5); NEUTROPHILS % 78.9 % (39.0-77.0); PLATELET COUNT 461 10^3/UL (140-415); POSITIVE DIFF @See below; RED BLOOD COUNT 2.91 10^6/ul (4.70-6.10); RED CELL DISTRIBUTION WIDTH 15.2 % (11.5-14.5)
[2017-10-23 04:53] LABS: WHITE BLOOD COUNT 21.2 10^3/ul (4.8-10.8)
[2017-10-23 05:28] LABS: ALBUMIN 2.8 g/dl (3.3-4.9); ANION GAP 21 (8-16); BLOOD UREA NITROGEN 47 mg/dl (7-20); CALCIUM 7.9 mg/dl (8.4-10.2); CARBON DIOXIDE 23 mmol/L (21-31); CHLORIDE 101 mmol/L (97-110); CREATININE 6.68 mg/dl (0.61-1.24); GLUCOSE 87 mg/dl (70-220); MAGNESIUM 2.1 mg/dl (1.7-2.5); PHOSPHORUS 9.8 mg/dl (2.5-4.9); POTASSIUM 4.6 mmol/L (3.5-5.1); SODIUM 140 mmol/L (135-144)
[2017-10-23] MEDS: PANTOPRAZOLE 40 MG INJ IV (06:20)
[2017-10-23] MEDS: SEVELAMER CARBONATE 2.4 GM PKT PO ×3 (07:35→17:28)
[2017-10-23 08:28] LABS: AADO2 Arterial 175.5 mmHg (7.0-24.0); Allen Test ACCEPTAB; Arterial Base Excess -3.6 mmol/L (-3.0-3); Arterial Blood Gas Oxygen Sat 92.4 mmHG (95.0-98.0); Arterial COHb 0.3 % (0.0-3.0); Arterial Fraction of Oxyhgb 92.1 % (93.0-99.0); Arterial HCO3 20.8 mmol/L (22.0-26.0); Arterial MetHb 0 % (0.0-1.5); Arterial Total Hemglobin 8.3 g/dl (12.0-18.0); Arterial pCO2 34.8 mmhg (35-45); MODE VENT - AC; Site Right Radial
[2017-10-23] MEDS: DOCUSATE SODIUM 100 MG CAP PO ×2 (08:48→21:23)
[2017-10-23] MEDS: FERROUS SULFATE (EC) 325 MG TAB PO (08:49)
[2017-10-23] MEDS: ASPIRIN (EC) 81 MG TAB PO (08:49)
[2017-10-23] MEDS: MEROPENEM 500MG/50 ML (PMX) 50 ML IVPB ×2 (08:51→21:22)
[2017-10-23] MEDS: morphine 2 MG INJ IV (10:38)
[2017-10-23 15:51] LABS: AADO2 Arterial 172.5 mmHg (7.0-24.0); Allen Test ACCEPTAB; Arterial Base Excess 0.4 mmol/L (-3.0-3); Arterial COHb 0.3 % (0.0-3.0); Arterial Fraction of Oxyhgb 93.4 % (93.0-99.0); Arterial HCO3 24.1 mmol/L (22.0-26.0); Arterial MetHb 0.3 % (0.0-1.5); Arterial Total Hemglobin 11.5 g/dl (12.0-18.0); Arterial pCO2 35.4 mmhg (35-45); MODE VENT - CPAP; Site Right Radial
[2017-10-23] MEDS: AZITHROMYCIN 500MG/NS (PMX) 250 ML IV (17:28)
[2017-10-23] MEDS: ATORVASTATIN 40 MG TAB PO (21:23)
[2017-10-24] MEDS: INSULIN ASPART [NOVOLOG] 3 ML PEN SC ×6 (01:37→20:52)
[2017-10-24] MEDS: PROPOFOL 100 ML IV ×2 (01:59→06:29)
[2017-10-24] MEDS: PANTOPRAZOLE 40 MG INJ IV (05:40)
[2017-10-24 06:00] LABS: ADD MAN DIFF? NO
[2017-10-24 06:08] LABS: WHITE BLOOD COUNT 18.2 10^3/ul (4.8-10.8)
[2017-10-24 06:08] LABS: ABNORMAL IP MESSAGE 1; BASOPHIL # 0.1 10^3/ul (0.0-0.1); BASOPHILS % 0.3 % (0.0-2.0); EOSINOPHILS % 5.7 % (0.0-7.0); HEMATOCRIT 24.6 % (42.0-52.0); HEMOGLOBIN 8.3 g/dl (14.0-18.0); LYMPHOCYTES # 1.5 10^3/ul (0.8-2.9); LYMPHOCYTES % 8.2 % (15.0-51.0); MEAN CORPUSCULAR HEMOGLOBIN 26.3 pg (29.0-33.0); MEAN CORPUSCULAR HGB CONC 33.7 g/dl (32.0-37.0); MEAN CORPUSCULAR VOLUME 77.8 fl (82.0-101.0); MEAN PLATELET VOLUME 10.3 fl (7.4-10.4); MONOCYTE # 1.6 10^3/ul (0.3-0.9); MONOCYTES % 8.9 % (0.0-11.0); NEUTROPHIL # 13.8 10^3/ul (1.6-7.5); NEUTROPHILS % 75.8 % (39.0-77.0); PLATELET COUNT 478 10^3/UL (140-415); POSITIVE DIFF @See below; RED BLOOD COUNT 3.16 10^6/ul (4.70-6.10)
[2017-10-24 06:48] LABS: ALBUMIN 2.9 g/dl (3.3-4.9); ANION GAP 21 (8-16); BLOOD UREA NITROGEN 55 mg/dl (7-20); CALCIUM 7.2 mg/dl (8.4-10.2); CARBON DIOXIDE 25 mmol/L (21-31); CHLORIDE 95 mmol/L (97-110); CREATININE 7.16 mg/dl (0.61-1.24); GLUCOSE 129 mg/dl (70-220); MAGNESIUM 2.2 mg/dl (1.7-2.5); PHOSPHORUS 11.6 mg/dl (2.5-4.9); POTASSIUM 4.4 mmol/L (3.5-5.1); SODIUM 137 mmol/L (135-144)
[2017-10-24 07:28] LABS: VANCOMYCIN,RANDOM 14.4 ug/ml
[2017-10-24 07:48] LABS: AADO2 Arterial 166.3 mmHg (7.0-24.0); Allen Test ACCEPTAB; Arterial Blood Gas Oxygen Sat 94.4 mmHG (95.0-98.0); Arterial COHb 0.3 % (0.0-3.0); Arterial Fraction of Oxyhgb 93.9 % (93.0-99.0); Arterial HCO3 22.4 mmol/L (22.0-26.0); Arterial MetHb 0.2 % (0.0-1.5); Arterial Total Hemglobin 9.5 g/dl (12.0-18.0); Arterial pCO2 36.6 mmhg (35-45); MODE VENT - AC; Site Right Radial
[2017-10-24] MEDS ORDERED: SEVELAMER CARBONATE 2.4 GM PKT (08:16)
[2017-10-24] MEDS: MEROPENEM 500MG/50 ML (PMX) 50 ML IVPB ×2 (08:20→20:47)
[2017-10-24] MEDS: DOCUSATE SODIUM 100 MG CAP PO ×2 (08:20→20:47)
[2017-10-24] MEDS: ASPIRIN (EC) 81 MG TAB PO (08:21)
[2017-10-24] MEDS: FERROUS SULFATE (EC) 325 MG TAB PO (08:21)
[2017-10-24] MEDS: SEVELAMER CARBONATE 2.4 GM PKT PO ×2 (12:04→16:51)
[2017-10-24] MEDS: SEVELAMER CARBONATE 0.8 GM PKT PO ×2 (12:04→16:51)
[2017-10-24] MEDS: VANCOMYCIN 1.25 GM in SOD CHLORIDE 0.9% 250 ML IVPB (12:04)
[2017-10-24] MEDS: AZITHROMYCIN 500MG/NS (PMX) 250 ML IV (16:51)
[2017-10-24 18:32] LABS: CREATININE, RANDOM URINE 223 mg/dL (20-370); MICROALBUMIN 91.7 mg/dL; MICROALBUMIN/CREATININE RATIO 411 (<30)
[2017-10-24] MEDS: morphine 2 MG INJ IV (18:58)
[2017-10-24] MEDS: ATORVASTATIN 40 MG TAB PO (20:47)
[2017-10-25] MEDS: INSULIN ASPART [NOVOLOG] 3 ML PEN SC ×4 (01:31→12:59)
[2017-10-25] MEDS: morphine 2 MG INJ IV ×2 (02:08→11:07)
[2017-10-25] MEDS: PANTOPRAZOLE 40 MG INJ IV (05:18)
[2017-10-25] MEDS: SEVELAMER CARBONATE 0.8 GM PKT PO ×3 (06:54→17:45)
[2017-10-25] MEDS: SEVELAMER CARBONATE 2.4 GM PKT PO ×3 (06:54→17:45)
[2017-10-25 07:24] LABS: ADD MAN DIFF? NO
[2017-10-25 07:28] LABS: ABNORMAL IP MESSAGE 1; BASOPHIL # 0.1 10^3/ul (0.0-0.1); BASOPHILS % 0.5 % (0.0-2.0); EOSINOPHILS # 1.1 10^3/ul (0.0-0.5); EOSINOPHILS % 5.7 % (0.0-7.0); HEMATOCRIT 29.5 % (42.0-52.0); HEMOGLOBIN 9.5 g/dl (14.0-18.0); LYMPHOCYTES # 1.2 10^3/ul (0.8-2.9); LYMPHOCYTES % 6.5 % (15.0-51.0); MEAN CORPUSCULAR HEMOGLOBIN 25.8 pg (29.0-33.0); MEAN CORPUSCULAR HGB CONC 32.2 g/dl (32.0-37.0); MEAN CORPUSCULAR VOLUME 80.2 fl (82.0-101.0); MEAN PLATELET VOLUME 10.1 fl (7.4-10.4); MONOCYTE # 1.6 10^3/ul (0.3-0.9); MONOCYTES % 8.2 % (0.0-11.0); NEUTROPHIL # 14.8 10^3/ul (1.6-7.5); NEUTROPHILS % 77.4 % (39.0-77.0); PLATELET COUNT 597 10^3/UL (140-415); POSITIVE DIFF @See below; RED BLOOD COUNT 3.68 10^6/ul (4.70-6.10); RED CELL DISTRIBUTION WIDTH 15.1 % (11.5-14.5)
[2017-10-25 07:35] LABS: LACTIC ACID 1.4 mmol/L (0.5-2.0)
[2017-10-25 07:35] LABS: AMMONIA 21 umol/l (9-30)
[2017-10-25 08:06] LABS: ALANINE AMINOTRANSFERASE 49 IU/L (13-69); ALBUMIN 2.8 g/dl (3.3-4.9); ALKALINE PHOSPHATASE 133 IU/L (42-121); ASPARTATE AMINO TRANSFERASE 50 IU/L (15-46)
[2017-10-25 08:07] LABS: ALBUMIN 2.7 g/dl (3.3-4.9); ANION GAP 27 (8-16); BLOOD UREA NITROGEN 66 mg/dl (7-20); CALCIUM 7.5 mg/dl (8.4-10.2); CARBON DIOXIDE 22 mmol/L (21-31); CHLORIDE 101 mmol/L (97-110); CREATININE 7.23 mg/dl (0.61-1.24); GLUCOSE 197 mg/dl (70-220); MAGNESIUM 2.6 mg/dl (1.7-2.5); PHOSPHORUS 11.6 mg/dl (2.5-4.9); SODIUM 145 mmol/L (135-144)
[2017-10-25 08:08] LABS: ANION GAP 27 (8-16); BLOOD UREA NITROGEN 63 mg/dl (7-20); CALCIUM 7.4 mg/dl (8.4-10.2); CARBON DIOXIDE 22 mmol/L (21-31); CHLORIDE 101 mmol/L (97-110); CREATININE 7.51 mg/dl (0.61-1.24); GLUCOSE 196 mg/dl (70-220); PHOSPHORUS 11.7 mg/dl (2.5-4.9); POTASSIUM 4.9 mmol/L (3.5-5.1); SODIUM 145 mmol/L (135-144)
[2017-10-25 08:53] LABS: HEPATITIS B SURFACE ANTIBODY NEGATIVE (NEGATIVE)
[2017-10-25] MEDS: FERROUS SULFATE 60 MG/ML 5ML CUP NGT (09:34)
[2017-10-25] MEDS: ASPIRIN 81 MG TAB PO (09:34)
[2017-10-25] MEDS: MEROPENEM 500MG/50 ML (PMX) 50 ML IVPB ×2 (09:34→20:34)
[2017-10-25] MEDS: PROPOFOL 100 ML IV ×2 (11:27→18:04)
[2017-10-25] MEDS ORDERED: SOD CHLORIDE 0.45% 1,000 ML IV (11:30)
[2017-10-25] MEDS: DOCUSATE SODIUM 10 MG/ML (10ML CUP) NGT ×2 (11:51→20:35)
[2017-10-25] MEDS: LANTHANUM 500 MG CHEW PO ×2 (11:53→17:45)
[2017-10-25] MEDS: Insulin NOVOLOG SS MODERATE Algorithm(NPO/TPN/ENTERAL FEEDS) SC ×2 (17:57→20:44)
[2017-10-25 18:28] LABS: SODIUM,URINE RANDOM 69 mmol/L (30-90)
[2017-10-25] MEDS: ATORVASTATIN 40 MG TAB PO (20:35)
[2017-10-26] MEDS: PROPOFOL 100 ML IV ×3 (00:30→20:00)
[2017-10-26] MEDS: Insulin NOVOLOG SS MODERATE Algorithm(NPO/TPN/ENTERAL FEEDS) SC ×6 (01:08→21:55)
[2017-10-26 05:30] LABS: ADD MAN DIFF? NO
[2017-10-26 05:36] LABS: ABNORMAL IP MESSAGE 1; BASOPHIL # 0.1 10^3/ul (0.0-0.1); BASOPHILS % 0.6 % (0.0-2.0); EOSINOPHILS # 1.3 10^3/ul (0.0-0.5); EOSINOPHILS % 7.2 % (0.0-7.0); HEMOGLOBIN 9.9 g/dl (14.0-18.0); LYMPHOCYTES # 1.8 10^3/ul (0.8-2.9); LYMPHOCYTES % 10.4 % (15.0-51.0); MEAN CORPUSCULAR HEMOGLOBIN 26.3 pg (29.0-33.0); MEAN CORPUSCULAR VOLUME 79.6 fl (82.0-101.0); MEAN PLATELET VOLUME 9.7 fl (7.4-10.4); MONOCYTE # 1.7 10^3/ul (0.3-0.9); MONOCYTES % 9.4 % (0.0-11.0); NEUTROPHIL # 12.5 10^3/ul (1.6-7.5); NEUTROPHILS % 71.1 % (39.0-77.0); PLATELET COUNT 549 10^3/UL (140-415); POSITIVE DIFF @See below; RED BLOOD COUNT 3.77 10^6/ul (4.70-6.10)
[2017-10-26 05:36] LABS: WHITE BLOOD COUNT 17.6 10^3/ul (4.8-10.8)
[2017-10-26 05:53] LABS: ANION GAP 22 (8-16); BLOOD UREA NITROGEN 68 mg/dl (7-20); CALCIUM 7.7 mg/dl (8.4-10.2); CARBON DIOXIDE 27 mmol/L (21-31); CHLORIDE 98 mmol/L (97-110); CREATININE 7.37 mg/dl (0.61-1.24); GLUCOSE 174 mg/dl (70-220); MAGNESIUM 2.7 mg/dl (1.7-2.5); POTASSIUM 4.1 mmol/L (3.5-5.1); SODIUM 143 mmol/L (135-144)
[2017-10-26] MEDS: SEVELAMER CARBONATE 0.8 GM PKT PO ×3 (06:33→17:52)
[2017-10-26] MEDS: SEVELAMER CARBONATE 2.4 GM PKT PO ×3 (06:33→17:52)
[2017-10-26] MEDS: LANTHANUM 500 MG CHEW PO ×3 (06:34→17:52)
[2017-10-26] MEDS: PANTOPRAZOLE 40 MG INJ IV (06:34)
[2017-10-26 08:28] LABS: Allen Test ACCEPTAB; Arterial Base Excess -0.6 mmol/L (-3.0-3); Arterial Blood Gas Oxygen Sat 98.2 mmHG (95.0-98.0); Arterial COHb 0.3 % (0.0-3.0); Arterial Fraction of Oxyhgb 97.7 % (93.0-99.0); Arterial MetHb 0.2 % (0.0-1.5); Arterial Total Hemglobin 10.5 g/dl (12.0-18.0); Arterial pCO2 39.6 mmhg (35-45); MODE VENT - AC; Site Right Radial
[2017-10-26] MEDS: FERROUS SULFATE 60 MG/ML 5ML CUP NGT (12:36)
[2017-10-26] MEDS: DOCUSATE SODIUM 10 MG/ML (10ML CUP) NGT ×2 (12:36→21:45)
[2017-10-26] MEDS: MEROPENEM 500MG/50 ML (PMX) 50 ML IVPB ×2 (12:41→21:44)
[2017-10-26] MEDS: ASPIRIN 81 MG TAB PO (12:42)
[2017-10-26] MEDS: ATORVASTATIN 40 MG TAB PO (21:44)
[2017-10-27] MEDS: Insulin NOVOLOG SS MODERATE Algorithm(NPO/TPN/ENTERAL FEEDS) SC ×6 (00:52→21:00)
[2017-10-27] MEDS: PROPOFOL 100 ML IV (03:32)
[2017-10-27 05:44] LABS: ADD MAN DIFF? NO
[2017-10-27 06:01] LABS: WHITE BLOOD COUNT 19.2 10^3/ul (4.8-10.8)
[2017-10-27 06:01] LABS: ABNORMAL IP MESSAGE 1; BASOPHIL # 0.1 10^3/ul (0.0-0.1); BASOPHILS % 0.4 % (0.0-2.0); EOSINOPHILS # 1.5 10^3/ul (0.0-0.5); EOSINOPHILS % 7.7 % (0.0-7.0); HEMATOCRIT 30.6 % (42.0-52.0); HEMOGLOBIN 10.2 g/dl (14.0-18.0); LYMPHOCYTES # 2.3 10^3/ul (0.8-2.9); MEAN CORPUSCULAR HEMOGLOBIN 26.5 pg (29.0-33.0); MEAN CORPUSCULAR HGB CONC 33.3 g/dl (32.0-37.0); MEAN CORPUSCULAR VOLUME 79.5 fl (82.0-101.0); MEAN PLATELET VOLUME 9.8 fl (7.4-10.4); MONOCYTE # 1.9 10^3/ul (0.3-0.9); MONOCYTES % 9.8 % (0.0-11.0); NEUTROPHIL # 13.3 10^3/ul (1.6-7.5); NEUTROPHILS % 69.1 % (39.0-77.0); PLATELET COUNT 505 10^3/UL (140-415); POSITIVE DIFF @See below; RED BLOOD COUNT 3.85 10^6/ul (4.70-6.10)
[2017-10-27 06:51] LABS: ANION GAP 26 (8-16); BLOOD UREA NITROGEN 88 mg/dl (7-20); CALCIUM 7.5 mg/dl (8.4-10.2); CARBON DIOXIDE 21 mmol/L (21-31); CHLORIDE 101 mmol/L (97-110); GLUCOSE 177 mg/dl (70-220); MAGNESIUM 2.9 mg/dl (1.7-2.5); PHOSPHORUS 9.6 mg/dl (2.5-4.9); POTASSIUM 4.3 mmol/L (3.5-5.1); SODIUM 144 mmol/L (135-144)
[2017-10-27] MEDS: LANTHANUM 500 MG CHEW PO ×3 (06:54→17:57)
[2017-10-27] MEDS: SEVELAMER CARBONATE 2.4 GM PKT PO ×3 (06:54→17:57)
[2017-10-27] MEDS: PANTOPRAZOLE 40 MG INJ IV (06:54)
[2017-10-27] MEDS: SEVELAMER CARBONATE 0.8 GM PKT PO ×3 (06:54→17:57)
[2017-10-27] MEDS: DOCUSATE SODIUM 10 MG/ML (10ML CUP) NGT ×2 (08:26→22:12)
[2017-10-27] MEDS: FERROUS SULFATE 60 MG/ML 5ML CUP NGT (08:26)
[2017-10-27] MEDS: ASPIRIN 81 MG TAB PO (08:27)
[2017-10-27] MEDS: MEROPENEM 500MG/50 ML (PMX) 50 ML IVPB ×2 (09:00→22:12)
[2017-10-27 11:53] LABS: VANCOMYCIN,TROUGH 17.7 ug/ml (10.0-20.0)
[2017-10-27] MEDS ORDERED: ALBUTEROL/IPRATROPIUM (NEB) 3 ML AMP HHN (14:00)
[2017-10-27] MEDS: ATORVASTATIN 40 MG TAB PO (22:12)
[2017-10-27] MEDS: VANCOMYCIN 1 GM in NS 250 ML IVPB (23:37)
[2017-10-28] MEDS: morphine 2 MG INJ IV (01:49)
[2017-10-28] MEDS: Insulin NOVOLOG SS MODERATE Algorithm(NPO/TPN/ENTERAL FEEDS) SC ×6 (02:44→21:13)
[2017-10-28 05:23] LABS: ADD MAN DIFF? NO
[2017-10-28 05:28] LABS: ABNORMAL IP MESSAGE 1; BASOPHIL # 0.1 10^3/ul (0.0-0.1); BASOPHILS % 0.4 % (0.0-2.0); EOSINOPHILS # 1.7 10^3/ul (0.0-0.5); EOSINOPHILS % 7.4 % (0.0-7.0); HEMATOCRIT 31.1 % (42.0-52.0); HEMOGLOBIN 10.2 g/dl (14.0-18.0); LYMPHOCYTES # 2.4 10^3/ul (0.8-2.9); LYMPHOCYTES % 10.5 % (15.0-51.0); MEAN CORPUSCULAR HGB CONC 32.8 g/dl (32.0-37.0); MEAN CORPUSCULAR VOLUME 79.1 fl (82.0-101.0); MEAN PLATELET VOLUME 9.9 fl (7.4-10.4); MONOCYTES % 8.7 % (0.0-11.0); NEUTROPHIL # 16.5 10^3/ul (1.6-7.5); NEUTROPHILS % 72.2 % (39.0-77.0); PLATELET COUNT 464 10^3/UL (140-415); POSITIVE DIFF @See below; RED BLOOD COUNT 3.93 10^6/ul (4.70-6.10); RED CELL DISTRIBUTION WIDTH 14.5 % (11.5-14.5)
[2017-10-28 05:28] LABS: WHITE BLOOD COUNT 22.8 10^3/ul (4.8-10.8)
[2017-10-28] MEDS: PROPOFOL 100 ML IV ×2 (05:30→17:30)
[2017-10-28 05:46] LABS: ANION GAP 25 (8-16); BLOOD UREA NITROGEN 89 mg/dl (7-20); CALCIUM 8.2 mg/dl (8.4-10.2); CARBON DIOXIDE 24 mmol/L (21-31); CHLORIDE 96 mmol/L (97-110); CREATININE 9.32 mg/dl (0.61-1.24); GLUCOSE 197 mg/dl (70-220); MAGNESIUM 2.7 mg/dl (1.7-2.5); PHOSPHORUS 10.4 mg/dl (2.5-4.9); POTASSIUM 4.2 mmol/L (3.5-5.1); SODIUM 141 mmol/L (135-144)
[2017-10-28] MEDS: PANTOPRAZOLE 40 MG INJ IV (06:31)
[2017-10-28] MEDS: LANTHANUM 500 MG CHEW PO ×3 (07:35→18:36)
[2017-10-28] MEDS: SEVELAMER CARBONATE 2.4 GM PKT PO ×3 (08:42→18:36)
[2017-10-28] MEDS: SEVELAMER CARBONATE 0.8 GM PKT PO ×3 (08:42→18:36)
[2017-10-28] MEDS: DOCUSATE SODIUM 10 MG/ML (10ML CUP) NGT ×2 (08:42→21:05)
[2017-10-28] MEDS: FERROUS SULFATE 60 MG/ML 5ML CUP NGT (08:42)
[2017-10-28] MEDS: ASPIRIN 81 MG TAB PO (08:42)
[2017-10-28] MEDS: MEROPENEM 500MG/50 ML (PMX) 50 ML IVPB ×2 (08:43→21:05)
[2017-10-28 11:41] LABS: AADO2 Arterial 87.9 mmHg (7.0-24.0); Allen Test ACCEPTAB; Arterial Base Excess -2.2 mmol/L (-3.0-3); Arterial Blood Gas Oxygen Sat 97.8 mmHG (95.0-98.0); Arterial COHb 0.3 % (0.0-3.0); Arterial Fraction of Oxyhgb 97.2 % (93.0-99.0); Arterial HCO3 22.1 mmol/L (22.0-26.0); Arterial MetHb 0.3 % (0.0-1.5); Arterial Total Hemglobin 11.3 g/dl (12.0-18.0); Arterial pCO2 36.3 mmhg (35-45); Blood Gas PS 10; MODE VENT - CPAP; Site Right Radial
[2017-10-28] MEDS ORDERED: FLUCONAZOLE 100 MG/NS (PMX) 50 ML IVPB (15:00)
[2017-10-28] MEDS: FLUCONAZOLE 100 MG/NS (PMX) 50 ML IVPB (15:49)
[2017-10-28] MEDS: ATORVASTATIN 40 MG TAB PO (21:05)
[2017-10-29] MEDS: Insulin NOVOLOG SS MODERATE Algorithm(NPO/TPN/ENTERAL FEEDS) SC ×6 (01:19→20:56)
[2017-10-29] MEDS: PROPOFOL 100 ML IV ×2 (04:56→17:30)
[2017-10-29 05:31] LABS: ADD MAN DIFF? NO
[2017-10-29 05:43] LABS: WHITE BLOOD COUNT 20.1 10^3/ul (4.8-10.8)
[2017-10-29 05:43] LABS: ABNORMAL IP MESSAGE 1; BASOPHIL # 0.1 10^3/ul (0.0-0.1); BASOPHILS % 0.4 % (0.0-2.0); EOSINOPHILS # 1.3 10^3/ul (0.0-0.5); EOSINOPHILS % 6.5 % (0.0-7.0); HEMATOCRIT 30.3 % (42.0-52.0); HEMOGLOBIN 9.5 g/dl (14.0-18.0); LYMPHOCYTES # 2.6 10^3/ul (0.8-2.9); LYMPHOCYTES % 12.9 % (15.0-51.0); MEAN CORPUSCULAR HEMOGLOBIN 25.3 pg (29.0-33.0); MEAN CORPUSCULAR HGB CONC 31.4 g/dl (32.0-37.0); MEAN CORPUSCULAR VOLUME 80.6 fl (82.0-101.0); MEAN PLATELET VOLUME 9.9 fl (7.4-10.4); MONOCYTE # 1.6 10^3/ul (0.3-0.9); MONOCYTES % 7.8 % (0.0-11.0); NEUTROPHIL # 14.4 10^3/ul (1.6-7.5); NEUTROPHILS % 71.5 % (39.0-77.0); PLATELET COUNT 427 10^3/UL (140-415); POSITIVE DIFF @See below; RED BLOOD COUNT 3.76 10^6/ul (4.70-6.10); RED CELL DISTRIBUTION WIDTH 14.3 % (11.5-14.5)
[2017-10-29 06:10] LABS: ANION GAP 28 (8-16); CALCIUM 7.7 mg/dl (8.4-10.2); CARBON DIOXIDE 21 mmol/L (21-31); CHLORIDE 96 mmol/L (97-110); GLUCOSE 188 mg/dl (70-220); MAGNESIUM 2.9 mg/dl (1.7-2.5); POTASSIUM 4.9 mmol/L (3.5-5.1); SODIUM 140 mmol/L (135-144)
[2017-10-29] MEDS: PANTOPRAZOLE 40 MG INJ IV (06:13)
[2017-10-29 06:20] LABS: BLOOD UREA NITROGEN 117 mg/dl (7-20); CREATININE 10.71 mg/dl (0.61-1.24); PHOSPHORUS 12.8 mg/dl (2.5-4.9)
[2017-10-29] MEDS: morphine 2 MG INJ IV ×2 (08:07→13:50)
[2017-10-29] MEDS: MEROPENEM 500MG/50 ML (PMX) 50 ML IVPB ×2 (09:37→20:53)
[2017-10-29] MEDS: SEVELAMER CARBONATE 0.8 GM PKT PO ×3 (09:37→18:13)
[2017-10-29] MEDS: SEVELAMER CARBONATE 2.4 GM PKT PO ×3 (09:37→18:13)
[2017-10-29] MEDS: FERROUS SULFATE 60 MG/ML 5ML CUP NGT (09:38)
[2017-10-29] MEDS: LANTHANUM 500 MG CHEW PO ×3 (09:38→18:13)
[2017-10-29] MEDS: ASPIRIN 81 MG TAB PO (09:38)
[2017-10-29] MEDS: DOCUSATE SODIUM 10 MG/ML (10ML CUP) NGT ×2 (09:38→20:53)
[2017-10-29] MEDS: FLUCONAZOLE 100 MG/NS (PMX) 50 ML IVPB (15:34)
[2017-10-29] MEDS: ATORVASTATIN 40 MG TAB PO (20:53)
[2017-10-30] MEDS: Insulin NOVOLOG SS MODERATE Algorithm(NPO/TPN/ENTERAL FEEDS) SC ×6 (01:30→21:00)
[2017-10-30] MEDS: PROPOFOL 100 ML IV ×2 (05:05→16:58)
[2017-10-30 05:30] LABS: ADD MAN DIFF? NO
[2017-10-30] MEDS: PANTOPRAZOLE 40 MG INJ IV (05:35)
[2017-10-30 05:46] LABS: WHITE BLOOD COUNT 18.4 10^3/ul (4.8-10.8)
[2017-10-30 05:46] LABS: ABNORMAL IP MESSAGE 1; BASOPHIL # 0.1 10^3/ul (0.0-0.1); BASOPHILS % 0.5 % (0.0-2.0); EOSINOPHILS # 1.1 10^3/ul (0.0-0.5); EOSINOPHILS % 5.9 % (0.0-7.0); HEMATOCRIT 30.5 % (42.0-52.0); HEMOGLOBIN 9.7 g/dl (14.0-18.0); LYMPHOCYTES # 2.9 10^3/ul (0.8-2.9); LYMPHOCYTES % 15.9 % (15.0-51.0); MEAN CORPUSCULAR HEMOGLOBIN 25.3 pg (29.0-33.0); MEAN CORPUSCULAR HGB CONC 31.8 g/dl (32.0-37.0); MEAN CORPUSCULAR VOLUME 79.4 fl (82.0-101.0); MEAN PLATELET VOLUME 10.3 fl (7.4-10.4); MONOCYTE # 1.7 10^3/ul (0.3-0.9); MONOCYTES % 9.1 % (0.0-11.0); NEUTROPHIL # 12.5 10^3/ul (1.6-7.5); NEUTROPHILS % 67.7 % (39.0-77.0); PLATELET COUNT 429 10^3/UL (140-415); POSITIVE DIFF @See below; RED BLOOD COUNT 3.84 10^6/ul (4.70-6.10); RED CELL DISTRIBUTION WIDTH 14.5 % (11.5-14.5)
[2017-10-30 06:23] LABS: ANION GAP 28 (8-16); CALCIUM 7.1 mg/dl (8.4-10.2); CARBON DIOXIDE 20 mmol/L (21-31); CHLORIDE 96 mmol/L (97-110); GLUCOSE 169 mg/dl (70-220); MAGNESIUM 2.7 mg/dl (1.7-2.5); SODIUM 139 mmol/L (135-144)
[2017-10-30 06:34] LABS: BLOOD UREA NITROGEN 126 mg/dl (7-20); CREATININE 11.13 mg/dl (0.61-1.24)
[2017-10-30] MEDS: SEVELAMER CARBONATE 0.8 GM PKT PO ×3 (07:35→16:53)
[2017-10-30] MEDS: LANTHANUM 500 MG CHEW PO ×3 (07:35→16:53)
[2017-10-30] MEDS: SEVELAMER CARBONATE 2.4 GM PKT PO (07:35)
[2017-10-30] MEDS: DOCUSATE SODIUM 10 MG/ML (10ML CUP) NGT ×2 (09:10→21:05)
[2017-10-30] MEDS: FERROUS SULFATE 60 MG/ML 5ML CUP NGT (09:10)
[2017-10-30] MEDS: ASPIRIN 81 MG TAB PO (09:11)
[2017-10-30] MEDS: MEROPENEM 500MG/50 ML (PMX) 50 ML IVPB (09:12)
[2017-10-30 10:47] LABS: AADO2 Arterial 77.5 mmHg (7.0-24.0); Allen Test ACCEPTAB; Arterial Base Excess -4.8 mmol/L (-3.0-3); Arterial Blood Gas Oxygen Sat 96.7 mmHG (95.0-98.0); Arterial COHb 0.3 % (0.0-3.0); Arterial Fraction of Oxyhgb 96.1 % (93.0-99.0); Arterial HCO3 19.8 mmol/L (22.0-26.0); Arterial MetHb 0.3 % (0.0-1.5); Arterial Total Hemglobin 11.5 g/dl (12.0-18.0); Arterial pCO2 35.2 mmhg (35-45); Blood Gas PS 10; MODE VENT - CPAP; Site Left Radial
[2017-10-30] MEDS: ALBUTEROL 0.083% (NEB) 2.5 MG/3 ML AMP HHN (13:36)
[2017-10-30] MEDS: LORAZEPAM 2 MG INJ IV ×2 (14:01→23:42)
[2017-10-30] MEDS: FLUCONAZOLE 100 MG/NS (PMX) 50 ML IVPB (15:47)
[2017-10-30] MEDS: ATORVASTATIN 40 MG TAB PO (21:05)
[2017-10-31] MEDS: Insulin NOVOLOG SS MODERATE Algorithm(NPO/TPN/ENTERAL FEEDS) SC ×6 (01:00→20:38)
[2017-10-31] MEDS: PROPOFOL 100 ML IV ×2 (05:30→16:43)
[2017-10-31 05:55] LABS: ADD MAN DIFF? NO
[2017-10-31 06:19] LABS: ABNORMAL IP MESSAGE 1; BASOPHIL # 0.1 10^3/ul (0.0-0.1); BASOPHILS % 0.5 % (0.0-2.0); EOSINOPHILS # 1.3 10^3/ul (0.0-0.5); EOSINOPHILS % 7.1 % (0.0-7.0); HEMATOCRIT 30.7 % (42.0-52.0); HEMOGLOBIN 10.1 g/dl (14.0-18.0); LYMPHOCYTES # 2.5 10^3/ul (0.8-2.9); LYMPHOCYTES % 13.6 % (15.0-51.0); MEAN CORPUSCULAR HEMOGLOBIN 26.4 pg (29.0-33.0); MEAN CORPUSCULAR HGB CONC 32.9 g/dl (32.0-37.0); MEAN CORPUSCULAR VOLUME 80.2 fl (82.0-101.0); MEAN PLATELET VOLUME 10.3 fl (7.4-10.4); MONOCYTE # 1.7 10^3/ul (0.3-0.9); MONOCYTES % 9.1 % (0.0-11.0); NEUTROPHIL # 12.8 10^3/ul (1.6-7.5); NEUTROPHILS % 68.8 % (39.0-77.0); PLATELET COUNT 395 10^3/UL (140-415); POSITIVE DIFF @See below; RED BLOOD COUNT 3.83 10^6/ul (4.70-6.10); RED CELL DISTRIBUTION WIDTH 14.2 % (11.5-14.5)
[2017-10-31 06:19] LABS: WHITE BLOOD COUNT 18.5 10^3/ul (4.8-10.8)
[2017-10-31] MEDS: PANTOPRAZOLE 40 MG INJ IV (06:22)
[2017-10-31 06:43] LABS: ANION GAP 31 (8-16); CALCIUM 6.9 mg/dl (8.4-10.2); CARBON DIOXIDE 18 mmol/L (21-31); CHLORIDE 96 mmol/L (97-110); GLUCOSE 143 mg/dl (70-220); POTASSIUM 5.1 mmol/L (3.5-5.1); SODIUM 140 mmol/L (135-144)
[2017-10-31 06:50] LABS: BLOOD UREA NITROGEN 148 mg/dl (7-20); CREATININE 13.28 mg/dl (0.61-1.24)
[2017-10-31 06:54] LABS: PHOSPHORUS 15.8 mg/dl (2.5-4.9)
[2017-10-31] MEDS: LANTHANUM 500 MG CHEW PO ×3 (07:31→17:09)
[2017-10-31] MEDS: SEVELAMER CARBONATE 0.8 GM PKT PO ×3 (07:32→17:09)
[2017-10-31] MEDS: DOCUSATE SODIUM 10 MG/ML (10ML CUP) NGT ×2 (08:43→20:41)
[2017-10-31] MEDS: FERROUS SULFATE 60 MG/ML 5ML CUP NGT (08:43)
[2017-10-31] MEDS: ASPIRIN 81 MG TAB PO (08:44)
[2017-10-31] MEDS: morphine 2 MG INJ IV (09:45)
[2017-10-31] MEDS: LORAZEPAM 2 MG INJ IV (09:45)
[2017-10-31] MEDS: HEPARIN 1000 UNITS/ML 10 ML INJ CATHETER (11:02)
[2017-10-31] MEDS: ALBUTEROL 0.083% (NEB) 2.5 MG/3 ML AMP HHN (13:31)
[2017-10-31] MEDS: ATORVASTATIN 40 MG TAB PO (20:40)
[2017-11-01] MEDS: Insulin NOVOLOG SS MODERATE Algorithm(NPO/TPN/ENTERAL FEEDS) SC ×6 (01:00→20:20)
[2017-11-01] MEDS: PROPOFOL 100 ML IV ×2 (05:14→17:30)
[2017-11-01] MEDS: PANTOPRAZOLE 40 MG INJ IV (05:51)
[2017-11-01 06:59] LABS: ADD MAN DIFF? NO
[2017-11-01 07:07] LABS: ABNORMAL IP MESSAGE 1; BASOPHIL # 0.1 10^3/ul (0.0-0.1); BASOPHILS % 0.7 % (0.0-2.0); EOSINOPHILS % 5.9 % (0.0-7.0); HEMATOCRIT 30.9 % (42.0-52.0); HEMOGLOBIN 9.9 g/dl (14.0-18.0); LYMPHOCYTES # 2.3 10^3/ul (0.8-2.9); LYMPHOCYTES % 13.4 % (15.0-51.0); MEAN CORPUSCULAR HEMOGLOBIN 25.3 pg (29.0-33.0); MEAN PLATELET VOLUME 10.4 fl (7.4-10.4); MONOCYTE # 1.8 10^3/ul (0.3-0.9); MONOCYTES % 10.5 % (0.0-11.0); NEUTROPHIL # 11.7 10^3/ul (1.6-7.5); NEUTROPHILS % 68.9 % (39.0-77.0); PLATELET COUNT 411 10^3/UL (140-415); POSITIVE DIFF @See below; RED BLOOD COUNT 3.91 10^6/ul (4.70-6.10); RED CELL DISTRIBUTION WIDTH 13.9 % (11.5-14.5)
[2017-11-01 07:35] LABS: ANION GAP 24 (8-16); BLOOD UREA NITROGEN 103 mg/dl (7-20); CALCIUM 6.9 mg/dl (8.4-10.2); CARBON DIOXIDE 24 mmol/L (21-31); CHLORIDE 92 mmol/L (97-110); GLUCOSE 131 mg/dl (70-220); MAGNESIUM 2.4 mg/dl (1.7-2.5); PHOSPHORUS 11.8 mg/dl (2.5-4.9); POTASSIUM 4.4 mmol/L (3.5-5.1); SODIUM 136 mmol/L (135-144)
[2017-11-01 07:46] LABS: CREATININE 9.26 mg/dl (0.61-1.24)
[2017-11-01] MEDS: ASPIRIN 81 MG TAB PO (08:31)
[2017-11-01] MEDS: SEVELAMER CARBONATE 0.8 GM PKT PO ×3 (08:31→17:38)
[2017-11-01] MEDS: LANTHANUM 500 MG CHEW PO ×3 (08:32→17:38)
[2017-11-01] MEDS: FERROUS SULFATE 60 MG/ML 5ML CUP NGT (11:49)
[2017-11-01] MEDS: DOCUSATE SODIUM 10 MG/ML (10ML CUP) NGT ×2 (11:49→20:20)
[2017-11-01] MEDS: LORAZEPAM 2 MG INJ IV (14:28)
[2017-11-01 18:17] LABS: ANA SCREEN POSITIVE (NEGATIVE)
[2017-11-01 18:56] LABS: ANA PATTERN HOMOGENEOUS
[2017-11-01] MEDS: ATORVASTATIN 40 MG TAB PO (20:21)
[2017-11-01] MEDS: HEPARIN 5,000 UNIT/0.5 ML VIAL SC (20:25)
[2017-11-01] MEDS: ACETAMINOPHEN 325 MG TAB PO (20:44)
[2017-11-02] MEDS: HALOPERIDOL 5 MG INJ IM (00:10)
[2017-11-02] MEDS: Insulin NOVOLOG SS MODERATE Algorithm(NPO/TPN/ENTERAL FEEDS) SC ×6 (01:00→20:42)
[2017-11-02] MEDS: PANTOPRAZOLE 40 MG INJ IV (05:06)
[2017-11-02 05:42] LABS: ADD MAN DIFF? NO
[2017-11-02 06:11] LABS: ABNORMAL IP MESSAGE 1; BASOPHIL # 0.2 10^3/ul (0.0-0.1); BASOPHILS % 1.1 % (0.0-2.0); EOSINOPHILS # 0.8 10^3/ul (0.0-0.5); EOSINOPHILS % 5.6 % (0.0-7.0); HEMATOCRIT 30.6 % (42.0-52.0); LYMPHOCYTES # 2.3 10^3/ul (0.8-2.9); LYMPHOCYTES % 15.4 % (15.0-51.0); MEAN CORPUSCULAR HEMOGLOBIN 26.2 pg (29.0-33.0); MEAN CORPUSCULAR HGB CONC 32.7 g/dl (32.0-37.0); MEAN CORPUSCULAR VOLUME 80.1 fl (82.0-101.0); MEAN PLATELET VOLUME 10.7 fl (7.4-10.4); MONOCYTE # 1.8 10^3/ul (0.3-0.9); MONOCYTES % 11.8 % (0.0-11.0); NEUTROPHIL # 9.9 10^3/ul (1.6-7.5); NEUTROPHILS % 65.6 % (39.0-77.0); PLATELET COUNT 413 10^3/UL (140-415); POSITIVE DIFF @See below; RED BLOOD COUNT 3.82 10^6/ul (4.70-6.10)
[2017-11-02 06:11] LABS: WHITE BLOOD COUNT 15.1 10^3/ul (4.8-10.8)
[2017-11-02 06:22] LABS: ALANINE AMINOTRANSFERASE 28 IU/L (13-69); ALBUMIN 3.4 g/dl (3.3-4.9); ALBUMIN/GLOBULIN RATIO 0.77; ALKALINE PHOSPHATASE 89 IU/L (42-121); ANION GAP 22 (8-16); ASPARTATE AMINO TRANSFERASE 38 IU/L (15-46); BLOOD UREA NITROGEN 81 mg/dl (7-20); CALCIUM 7.4 mg/dl (8.4-10.2); CARBON DIOXIDE 25 mmol/L (21-31); CHLORIDE 96 mmol/L (97-110); GLUCOSE 150 mg/dl (70-220); POTASSIUM 4.3 mmol/L (3.5-5.1); SODIUM 139 mmol/L (135-144); TOTAL PROTEIN 7.8 g/dl (6.1-8.1)
[2017-11-02 06:29] LABS: CREATININE 8.21 mg/dl (0.61-1.24)
[2017-11-02 06:43] LABS: AMMONIA < 9 umol/l (9-30)
[2017-11-02 07:23] LABS: FOLATE 5.7 ng/ml (2.8-20.0)
[2017-11-02] MEDS: SEVELAMER CARBONATE 0.8 GM PKT PO ×3 (07:52→16:45)
[2017-11-02] MEDS: LANTHANUM 500 MG CHEW PO ×3 (07:52→16:44)
[2017-11-02] MEDS: FERROUS SULFATE 60 MG/ML 5ML CUP NGT (07:55)
[2017-11-02] MEDS: DOCUSATE SODIUM 10 MG/ML (10ML CUP) NGT ×2 (07:55→20:33)
[2017-11-02] MEDS: HEPARIN 5,000 UNIT/0.5 ML VIAL SC (07:55)
[2017-11-02] MEDS: ASPIRIN 81 MG TAB PO (07:55)
[2017-11-02 08:09] LABS: MAGNESIUM 2.4 mg/dl (1.7-2.5)
[2017-11-02] MEDS: morphine 2 MG INJ IV ×2 (11:22→19:05)
[2017-11-02] MEDS: DIPHENHYDRAMINE 50 MG INJ IV (13:53)
[2017-11-02 13:57] LABS: ANCA SCREEN NEGATIVE (NEGATIVE)
[2017-11-02 15:11] LABS: RAPID PLASMA REAGIN NONREACTIVE (NR)
[2017-11-02 18:21] LABS: MYELOPEROXIDASE ANTIBODY <1.0 AI; PROTEINASE-3 ANTIBODY <1.0 AI
[2017-11-02] MEDS: LORAZEPAM 2 MG INJ IV (20:31)
[2017-11-02] MEDS: ATORVASTATIN 40 MG TAB PO (20:34)
[2017-11-03] MEDS: Insulin NOVOLOG SS MODERATE Algorithm(NPO/TPN/ENTERAL FEEDS) SC ×6 (01:00→21:00)
[2017-11-03] MEDS: morphine 2 MG INJ IV (03:08)
[2017-11-03] MEDS: LANSOPRAZOLE 30 MG CAP GTB (05:17)
[2017-11-03 05:47] LABS: ADD MAN DIFF? NO
[2017-11-03 05:57] LABS: ABNORMAL IP MESSAGE 1; BASOPHIL # 0.2 10^3/ul (0.0-0.1); BASOPHILS % 1.1 % (0.0-2.0); EOSINOPHILS # 0.8 10^3/ul (0.0-0.5); EOSINOPHILS % 5.8 % (0.0-7.0); HEMATOCRIT 30.4 % (42.0-52.0); HEMOGLOBIN 9.7 g/dl (14.0-18.0); LYMPHOCYTES # 2.1 10^3/ul (0.8-2.9); LYMPHOCYTES % 14.6 % (15.0-51.0); MEAN CORPUSCULAR HEMOGLOBIN 25.4 pg (29.0-33.0); MEAN CORPUSCULAR HGB CONC 31.9 g/dl (32.0-37.0); MEAN CORPUSCULAR VOLUME 79.6 fl (82.0-101.0); MEAN PLATELET VOLUME 10.4 fl (7.4-10.4); MONOCYTE # 1.8 10^3/ul (0.3-0.9); MONOCYTES % 12.9 % (0.0-11.0); NEUTROPHIL # 9.2 10^3/ul (1.6-7.5); NEUTROPHILS % 65.2 % (39.0-77.0); PLATELET COUNT 420 10^3/UL (140-415); POSITIVE DIFF @See below; RED BLOOD COUNT 3.82 10^6/ul (4.70-6.10); RED CELL DISTRIBUTION WIDTH 13.6 % (11.5-14.5)
[2017-11-03 05:57] LABS: WHITE BLOOD COUNT 14.2 10^3/ul (4.8-10.8)
[2017-11-03 06:43] LABS: ANION GAP 24 (8-16); BLOOD UREA NITROGEN 57 mg/dl (7-20); CALCIUM 7.6 mg/dl (8.4-10.2); CARBON DIOXIDE 24 mmol/L (21-31); CHLORIDE 91 mmol/L (97-110); GLUCOSE 124 mg/dl (70-220); MAGNESIUM 2.2 mg/dl (1.7-2.5); PHOSPHORUS 9.3 mg/dl (2.5-4.9); POTASSIUM 4.2 mmol/L (3.5-5.1); SODIUM 135 mmol/L (135-144)
[2017-11-03] MEDS ORDERED: ROCURONIUM 50 MG INJ (07:00)
[2017-11-03] MEDS ORDERED: ETOMIDATE 20 MG INJ (07:00)
[2017-11-03] MEDS: SEVELAMER CARBONATE 0.8 GM PKT PO ×2 (07:35→17:35)
[2017-11-03] MEDS: LANTHANUM 500 MG CHEW PO ×2 (07:35→17:35)
[2017-11-03] MEDS: FERROUS SULFATE 60 MG/ML 5ML CUP NGT (08:51)
[2017-11-03] MEDS: DOCUSATE SODIUM 10 MG/ML (10ML CUP) NGT ×2 (08:51→21:36)
[2017-11-03] MEDS: ASPIRIN 81 MG TAB PO (08:54)
[2017-11-03] MEDS: QUETIAPINE 25 MG TAB PO (11:18)
[2017-11-03] MEDS: QUETIAPINE 100 MG TAB NGT (11:30)
[2017-11-03 11:56] LABS: AMMONIA 10 umol/l (9-30)
[2017-11-03 12:10] LABS: ETHANOL < 10.0 mg/dl
[2017-11-03] MEDS: HEPARIN 1000 UNITS/ML 10 ML INJ CATHETER (14:06)
[2017-11-03 16:16] LABS: ANTI-DNA (DOUBLE STRANDED) <95 U/mL (< 301)
[2017-11-03 17:09] LABS: AADO2 Arterial 74.9 mmHg (7.0-24.0); Allen Test ACCEPTAB; Arterial Base Excess -1.6 mmol/L (-3.0-3); Arterial Blood Gas Oxygen Sat 92.7 mmHG (95.0-98.0); Arterial COHb 0.3 % (0.0-3.0); Arterial Fraction of Oxyhgb 92.1 % (93.0-99.0); Arterial HCO3 23.2 mmol/L (22.0-26.0); Arterial MetHb 0.3 % (0.0-1.5); Arterial Total Hemglobin 11.1 g/dl (12.0-18.0); Arterial pCO2 39.3 mmhg (35-45); MODE NASAL CANNULA; Site Right Radial
[2017-11-03] MEDS: PROPOFOL 100 ML IV (18:00)
[2017-11-03] MEDS: SOD CHLORIDE 0.9% 1,000 ML IV (18:46)
[2017-11-03] MEDS: ALBUMIN HUMAN 25% 50 ML IV (18:47)
[2017-11-03 19:57] LABS: AADO2 Arterial 128.3 mmHg (7.0-24.0); Allen Test ACCEPTAB; Arterial Base Excess -3.4 mmol/L (-3.0-3); Arterial Blood Gas Oxygen Sat 99.2 mmHG (95.0-98.0); Arterial COHb 0.3 % (0.0-3.0); Arterial Fraction of Oxyhgb 98.6 % (93.0-99.0); Arterial MetHb 0.3 % (0.0-1.5); Arterial Total Hemglobin 10.4 g/dl (12.0-18.0); Arterial pCO2 35.5 mmhg (35-45); MODE VENT - AC; Site Right Radial
[2017-11-03] MEDS: ATORVASTATIN 40 MG TAB PO (21:36)
[2017-11-04] MEDS: Insulin NOVOLOG SS MODERATE Algorithm(NPO/TPN/ENTERAL FEEDS) SC ×6 (01:00→21:00)
[2017-11-04] MEDS: PROPOFOL 100 ML IV ×4 (02:29→21:05)
[2017-11-04 05:30] LABS: ADD MAN DIFF? NO
[2017-11-04] MEDS: LANSOPRAZOLE 30 MG CAP GTB (06:06)
[2017-11-04 06:09] LABS: ANION GAP 23 (8-16); BLOOD UREA NITROGEN 53 mg/dl (7-20); CALCIUM 7.3 mg/dl (8.4-10.2); CARBON DIOXIDE 25 mmol/L (21-31); CHLORIDE 94 mmol/L (97-110); GLUCOSE 108 mg/dl (70-220); MAGNESIUM 2.1 mg/dl (1.7-2.5); POTASSIUM 4.1 mmol/L (3.5-5.1); SODIUM 138 mmol/L (135-144)
[2017-11-04 07:15] LABS: ABNORMAL IP MESSAGE 1; BASOPHIL # 0.2 10^3/ul (0.0-0.1); BASOPHILS % 1.1 % (0.0-2.0); EOSINOPHILS # 0.8 10^3/ul (0.0-0.5); EOSINOPHILS % 6.2 % (0.0-7.0); HEMATOCRIT 27.4 % (42.0-52.0); HEMOGLOBIN 8.9 g/dl (14.0-18.0); LYMPHOCYTES # 2.3 10^3/ul (0.8-2.9); LYMPHOCYTES % 17.5 % (15.0-51.0); MEAN CORPUSCULAR HEMOGLOBIN 25.9 pg (29.0-33.0); MEAN CORPUSCULAR HGB CONC 32.5 g/dl (32.0-37.0); MEAN CORPUSCULAR VOLUME 79.9 fl (82.0-101.0); MEAN PLATELET VOLUME 10.3 fl (7.4-10.4); MONOCYTE # 1.6 10^3/ul (0.3-0.9); MONOCYTES % 11.9 % (0.0-11.0); NEUTROPHIL # 8.3 10^3/ul (1.6-7.5); NEUTROPHILS % 62.9 % (39.0-77.0); PLATELET COUNT 401 10^3/UL (140-415); POSITIVE DIFF @See below; RED BLOOD COUNT 3.43 10^6/ul (4.70-6.10); RED CELL DISTRIBUTION WIDTH 14.1 % (11.5-14.5)
[2017-11-04 07:15] LABS: WHITE BLOOD COUNT 13.2 10^3/ul (4.8-10.8)
[2017-11-04] MEDS: SEVELAMER CARBONATE 0.8 GM PKT PO ×3 (07:35→17:16)
[2017-11-04] MEDS: LANTHANUM 500 MG CHEW PO ×3 (07:35→17:16)
[2017-11-04] MEDS: QUETIAPINE 100 MG TAB NGT (08:42)
[2017-11-04] MEDS: DOCUSATE SODIUM 10 MG/ML (10ML CUP) NGT ×2 (08:42→21:32)
[2017-11-04] MEDS: ASPIRIN 81 MG TAB PO (08:42)
[2017-11-04] MEDS: FERROUS SULFATE 60 MG/ML 5ML CUP NGT (08:42)
[2017-11-04] MEDS: ALBUMIN HUMAN 25% 50 ML IV (13:13)
[2017-11-04] MEDS: SOD CHLORIDE 0.9% 1,000 ML IV (15:05)
[2017-11-04] MEDS: ATORVASTATIN 40 MG TAB PO (21:33)
[2017-11-05] MEDS: Insulin NOVOLOG SS MODERATE Algorithm(NPO/TPN/ENTERAL FEEDS) SC ×6 (01:00→20:34)
[2017-11-05] MEDS: PROPOFOL 100 ML IV ×5 (03:30→20:29)
[2017-11-05 05:41] LABS: ADD MAN DIFF? NO
[2017-11-05 05:55] LABS: WHITE BLOOD COUNT 11.5 10^3/ul (4.8-10.8)
[2017-11-05 05:55] LABS: BASOPHIL # 0.2 10^3/ul (0.0-0.1); BASOPHILS % 1.7 % (0.0-2.0); EOSINOPHILS # 1.4 10^3/ul (0.0-0.5); EOSINOPHILS % 11.8 % (0.0-7.0); HEMATOCRIT 26.8 % (42.0-52.0); HEMOGLOBIN 8.7 g/dl (14.0-18.0); LYMPHOCYTES # 2.4 10^3/ul (0.8-2.9); MEAN CORPUSCULAR HEMOGLOBIN 26.3 pg (29.0-33.0); MEAN CORPUSCULAR HGB CONC 32.5 g/dl (32.0-37.0); MEAN PLATELET VOLUME 10.2 fl (7.4-10.4); MONOCYTE # 1.4 10^3/ul (0.3-0.9); MONOCYTES % 11.8 % (0.0-11.0); NEUTROPHIL # 6.1 10^3/ul (1.6-7.5); NEUTROPHILS % 53.2 % (39.0-77.0); PLATELET COUNT 411 10^3/UL (140-415); RED BLOOD COUNT 3.31 10^6/ul (4.70-6.10); RED CELL DISTRIBUTION WIDTH 14.5 % (11.5-14.5)
[2017-11-05] MEDS: LANSOPRAZOLE 30 MG CAP GTB (06:15)
[2017-11-05 06:40] LABS: ANION GAP 23 (8-16); BLOOD UREA NITROGEN 71 mg/dl (7-20); CALCIUM 6.8 mg/dl (8.4-10.2); CARBON DIOXIDE 23 mmol/L (21-31); CHLORIDE 96 mmol/L (97-110); GLUCOSE 133 mg/dl (70-220); MAGNESIUM 2.2 mg/dl (1.7-2.5); PHOSPHORUS 8.7 mg/dl (2.5-4.9); SODIUM 138 mmol/L (135-144)
[2017-11-05] MEDS: LANTHANUM 500 MG CHEW PO ×3 (07:40→17:30)
[2017-11-05] MEDS: SEVELAMER CARBONATE 0.8 GM PKT PO ×3 (07:40→17:30)
[2017-11-05] MEDS: FERROUS SULFATE 60 MG/ML 5ML CUP NGT (09:13)
[2017-11-05] MEDS: QUETIAPINE 100 MG TAB NGT (09:14)
[2017-11-05] MEDS: ASPIRIN 81 MG TAB PO (09:14)
[2017-11-05] MEDS: DOCUSATE SODIUM 10 MG/ML (10ML CUP) NGT ×2 (09:14→20:21)
[2017-11-05] MEDS: morphine 2 MG INJ IV (09:22)
[2017-11-05 09:24] LABS: AADO2 Arterial 101.3 mmHg (7.0-24.0); Allen Test ACCEPTAB; Arterial Base Excess -3.1 mmol/L (-3.0-3); Arterial Blood Gas Oxygen Sat 98.5 mmHG (95.0-98.0); Arterial COHb 0.3 % (0.0-3.0); Arterial Fraction of Oxyhgb 97.8 % (93.0-99.0); Arterial HCO3 20.9 mmol/L (22.0-26.0); Arterial MetHb 0.4 % (0.0-1.5); Arterial Total Hemglobin 11.6 g/dl (12.0-18.0); Arterial pCO2 34.1 mmhg (35-45); MODE VENT - AC; Site Right Radial
[2017-11-05] MEDS: FENTAnyl (DRIP) 1000 mcg/100mL 100 ML IV (10:23)
[2017-11-05] MEDS: SOD CHLORIDE 0.9% 1,000 ML IV (11:58)
[2017-11-05] MEDS: ALBUMIN HUMAN 25% 50 ML IV (12:04)
[2017-11-05] MEDS: FAMOTIDINE 20 MG INJ IV (20:20)
[2017-11-05] MEDS: ATORVASTATIN 40 MG TAB PO (20:21)
[2017-11-05] MEDS: HEPARIN 5,000 UNIT/0.5 ML VIAL SC (20:34)
[2017-11-06] MEDS: PROPOFOL 100 ML IV ×7 (01:00→23:35)
[2017-11-06] MEDS: Insulin NOVOLOG SS MODERATE Algorithm(NPO/TPN/ENTERAL FEEDS) SC ×6 (01:04→21:00)
[2017-11-06] MEDS: SOD CHLORIDE 0.9% 1,000 ML IV (05:05)
[2017-11-06] MEDS: LANSOPRAZOLE 30 MG CAP GTB (05:10)
[2017-11-06 05:33] LABS: ADD MAN DIFF? NO
[2017-11-06 05:38] LABS: WHITE BLOOD COUNT 9.9 10^3/ul (4.8-10.8)
[2017-11-06 05:38] LABS: BASOPHIL # 0.2 10^3/ul (0.0-0.1); BASOPHILS % 1.6 % (0.0-2.0); EOSINOPHILS # 1.5 10^3/ul (0.0-0.5); EOSINOPHILS % 14.6 % (0.0-7.0); HEMATOCRIT 27.1 % (42.0-52.0); HEMOGLOBIN 8.6 g/dl (14.0-18.0); LYMPHOCYTES # 1.6 10^3/ul (0.8-2.9); LYMPHOCYTES % 15.9 % (15.0-51.0); MEAN CORPUSCULAR HEMOGLOBIN 26.1 pg (29.0-33.0); MEAN CORPUSCULAR HGB CONC 31.7 g/dl (32.0-37.0); MEAN CORPUSCULAR VOLUME 82.4 fl (82.0-101.0); MONOCYTE # 1.2 10^3/ul (0.3-0.9); MONOCYTES % 11.7 % (0.0-11.0); NEUTROPHIL # 5.5 10^3/ul (1.6-7.5); NEUTROPHILS % 55.6 % (39.0-77.0); PLATELET COUNT 427 10^3/UL (140-415); RED BLOOD COUNT 3.29 10^6/ul (4.70-6.10); RED CELL DISTRIBUTION WIDTH 14.5 % (11.5-14.5)
[2017-11-06 07:12] LABS: ANION GAP 20 (8-16); BLOOD UREA NITROGEN 46 mg/dl (7-20); CALCIUM 7.2 mg/dl (8.4-10.2); CARBON DIOXIDE 19 mmol/L (21-31); CHLORIDE 102 mmol/L (97-110); GLUCOSE 172 mg/dl (70-220); MAGNESIUM 2.1 mg/dl (1.7-2.5); PHOSPHORUS 5.6 mg/dl (2.5-4.9); SODIUM 137 mmol/L (135-144)
[2017-11-06] MEDS: FAMOTIDINE 20 MG INJ IV (08:08)
[2017-11-06] MEDS: LANTHANUM 500 MG CHEW PO ×3 (08:18→17:36)
[2017-11-06] MEDS: SEVELAMER CARBONATE 0.8 GM PKT PO ×3 (08:18→17:35)
[2017-11-06] MEDS: DOCUSATE SODIUM 10 MG/ML (10ML CUP) NGT ×2 (08:18→20:57)
[2017-11-06] MEDS: FERROUS SULFATE 60 MG/ML 5ML CUP NGT (08:18)
[2017-11-06] MEDS: ASPIRIN 81 MG TAB PO (08:18)
[2017-11-06] MEDS: QUETIAPINE 100 MG TAB NGT (08:19)
[2017-11-06] MEDS: HEPARIN 5,000 UNIT/0.5 ML VIAL SC ×2 (08:21→20:59)
[2017-11-06] MEDS: FENTAnyl (DRIP) 1000 mcg/100mL 100 ML IV (12:40)
[2017-11-06] MEDS: ATORVASTATIN 40 MG TAB PO (20:57)
[2017-11-07] MEDS: Insulin NOVOLOG SS MODERATE Algorithm(NPO/TPN/ENTERAL FEEDS) SC ×6 (00:34→20:45)
[2017-11-07] MEDS: PROPOFOL 100 ML IV ×5 (04:04→21:10)
[2017-11-07] MEDS: LANSOPRAZOLE 30 MG CAP GTB (06:31)
[2017-11-07] MEDS: FENTAnyl (DRIP) 1000 mcg/100mL 100 ML IV (06:36)
[2017-11-07 06:43] LABS: ADD MAN DIFF? NO
[2017-11-07 06:54] LABS: BASOPHIL # 0.2 10^3/ul (0.0-0.1); BASOPHILS % 1.5 % (0.0-2.0); EOSINOPHILS # 1.5 10^3/ul (0.0-0.5); EOSINOPHILS % 15.3 % (0.0-7.0); HEMATOCRIT 24.7 % (42.0-52.0); LYMPHOCYTES # 2.1 10^3/ul (0.8-2.9); LYMPHOCYTES % 21.3 % (15.0-51.0); MEAN CORPUSCULAR HEMOGLOBIN 26.3 pg (29.0-33.0); MEAN CORPUSCULAR HGB CONC 32.4 g/dl (32.0-37.0); MEAN CORPUSCULAR VOLUME 81.3 fl (82.0-101.0); MEAN PLATELET VOLUME 10.1 fl (7.4-10.4); MONOCYTE # 1.2 10^3/ul (0.3-0.9); MONOCYTES % 12.3 % (0.0-11.0); NEUTROPHIL # 4.8 10^3/ul (1.6-7.5); NEUTROPHILS % 49.1 % (39.0-77.0); PLATELET COUNT 393 10^3/UL (140-415); RED BLOOD COUNT 3.04 10^6/ul (4.70-6.10); RED CELL DISTRIBUTION WIDTH 14.8 % (11.5-14.5)
[2017-11-07 06:54] LABS: WHITE BLOOD COUNT 9.7 10^3/ul (4.8-10.8)
[2017-11-07 07:14] LABS: ANION GAP 20 (8-16); BLOOD UREA NITROGEN 58 mg/dl (7-20); CARBON DIOXIDE 19 mmol/L (21-31); CHLORIDE 100 mmol/L (97-110); CREATININE 8.22 mg/dl (0.61-1.24); GLUCOSE 129 mg/dl (70-220); MAGNESIUM 2.3 mg/dl (1.7-2.5); PHOSPHORUS 5.4 mg/dl (2.5-4.9); POTASSIUM 3.8 mmol/L (3.5-5.1); SODIUM 135 mmol/L (135-144)
[2017-11-07] MEDS: FAMOTIDINE 20 MG INJ IV (09:00)
[2017-11-07 09:06] LABS: AADO2 Arterial 70.6 mmHg (7.0-24.0); Allen Test ACCEPTAB; Arterial Base Excess -6.1 mmol/L (-3.0-3); Arterial Blood Gas Oxygen Sat 98.6 mmHG (95.0-98.0); Arterial COHb 0.3 % (0.0-3.0); Arterial Fraction of Oxyhgb 97.8 % (93.0-99.0); Arterial HCO3 18.7 mmol/L (22.0-26.0); Arterial MetHb 0.5 % (0.0-1.5); Arterial Total Hemglobin 8.6 g/dl (12.0-18.0); MODE VENT - SIMV; Site Left Radial
[2017-11-07] MEDS: DOCUSATE SODIUM 10 MG/ML (10ML CUP) NGT ×2 (10:24→20:40)
[2017-11-07] MEDS: FERROUS SULFATE 60 MG/ML 5ML CUP NGT (10:24)
[2017-11-07] MEDS: LANTHANUM 500 MG CHEW PO ×3 (10:24→16:18)
[2017-11-07] MEDS: SEVELAMER CARBONATE 0.8 GM PKT PO ×3 (10:24→16:18)
[2017-11-07] MEDS: ASPIRIN 81 MG TAB PO (10:25)
[2017-11-07] MEDS: QUETIAPINE 100 MG TAB NGT (10:25)
[2017-11-07] MEDS: HEPARIN 5,000 UNIT/0.5 ML VIAL SC ×2 (10:28→20:45)
[2017-11-07 13:12] LABS: CHOLESTEROL 125 mg/dl (100-200)
[2017-11-07 13:12] LABS: CHOL/HDL RATIO 3.5 RATIO; HDL CHOLESTEROL 35 mg/dl (30-78); LDL CHOLESTEROL,CALCULATED 19 mg/dl; TRIGLYCERIDES 354 mg/dl (0-149)
[2017-11-07] MEDS: ATORVASTATIN 80 MG TAB PO (20:40)
[2017-11-08] MEDS: PROPOFOL 100 ML IV ×7 (00:42→22:18)
[2017-11-08] MEDS: Insulin NOVOLOG SS MODERATE Algorithm(NPO/TPN/ENTERAL FEEDS) SC ×6 (00:46→20:43)
[2017-11-08] MEDS: FENTAnyl (DRIP) 1000 mcg/100mL 100 ML IV ×2 (01:50→15:38)
[2017-11-08] MEDS: LANSOPRAZOLE 30 MG CAP GTB (06:11)
[2017-11-08 06:32] LABS: ADD MAN DIFF? NO
[2017-11-08 06:39] LABS: WHITE BLOOD COUNT 9.6 10^3/ul (4.8-10.8)
[2017-11-08 06:39] LABS: BASOPHIL # 0.1 10^3/ul (0.0-0.1); BASOPHILS % 1.5 % (0.0-2.0); EOSINOPHILS # 1.5 10^3/ul (0.0-0.5); EOSINOPHILS % 15.7 % (0.0-7.0); HEMATOCRIT 26.1 % (42.0-52.0); HEMOGLOBIN 8.4 g/dl (14.0-18.0); LYMPHOCYTES % 20.9 % (15.0-51.0); MEAN CORPUSCULAR HEMOGLOBIN 26.3 pg (29.0-33.0); MEAN CORPUSCULAR HGB CONC 32.2 g/dl (32.0-37.0); MEAN CORPUSCULAR VOLUME 81.8 fl (82.0-101.0); MEAN PLATELET VOLUME 9.7 fl (7.4-10.4); MONOCYTE # 1.1 10^3/ul (0.3-0.9); MONOCYTES % 11.2 % (0.0-11.0); NEUTROPHIL # 4.8 10^3/ul (1.6-7.5); NEUTROPHILS % 49.9 % (39.0-77.0); PLATELET COUNT 383 10^3/UL (140-415); RED BLOOD COUNT 3.19 10^6/ul (4.70-6.10); RED CELL DISTRIBUTION WIDTH 14.6 % (11.5-14.5)
[2017-11-08 07:23] LABS: ANION GAP 20 (8-16); BLOOD UREA NITROGEN 38 mg/dl (7-20); CALCIUM 7.3 mg/dl (8.4-10.2); CARBON DIOXIDE 24 mmol/L (21-31); CHLORIDE 96 mmol/L (97-110); CREATININE 6.18 mg/dl (0.61-1.24); GLUCOSE 128 mg/dl (70-220); MAGNESIUM 2.1 mg/dl (1.7-2.5); PHOSPHORUS 4.9 mg/dl (2.5-4.9); POTASSIUM 3.8 mmol/L (3.5-5.1); SODIUM 136 mmol/L (135-144)
[2017-11-08] MEDS: LANTHANUM 500 MG CHEW PO ×3 (08:16→17:26)
[2017-11-08] MEDS: FERROUS SULFATE 60 MG/ML 5ML CUP NGT (08:17)
[2017-11-08] MEDS: DOCUSATE SODIUM 10 MG/ML (10ML CUP) NGT ×2 (08:17→20:43)
[2017-11-08] MEDS: SEVELAMER CARBONATE 0.8 GM PKT PO ×3 (08:17→17:26)
[2017-11-08] MEDS: ASPIRIN 81 MG TAB PO (08:18)
[2017-11-08] MEDS: QUETIAPINE 100 MG TAB NGT (08:18)
[2017-11-08] MEDS: HEPARIN 5,000 UNIT/0.5 ML VIAL SC ×2 (08:30→20:45)
[2017-11-08] MEDS ORDERED: HEPARIN 1000 UNITS/NS (A-LINE) 1,000 ML (17:16)
[2017-11-08] MEDS ORDERED: LIDOCAINE 1% (MDV) 20 ML INJ (17:16)
[2017-11-08] MEDS ORDERED: MIDAZOLAM 1 MG/ML 2 ML INJ (17:17)
[2017-11-08] MEDS ORDERED: FENTAnyl 50 MCG/ML VIAL (17:17)
[2017-11-08] MEDS ORDERED: HEPARIN 1000 UNITS/ML 10 ML INJ (17:19)
[2017-11-08] MEDS: ATORVASTATIN 80 MG TAB PO (20:42)
[2017-11-09] MEDS: Insulin NOVOLOG SS MODERATE Algorithm(NPO/TPN/ENTERAL FEEDS) SC ×6 (01:08→20:47)
[2017-11-09] MEDS: PROPOFOL 100 ML IV ×5 (03:14→23:08)
[2017-11-09 06:04] LABS: ADD MAN DIFF? NO
[2017-11-09 06:14] LABS: WHITE BLOOD COUNT 13.4 10^3/ul (4.8-10.8)
[2017-11-09 06:14] LABS: BASOPHIL # 0.1 10^3/ul (0.0-0.1); EOSINOPHILS # 1.4 10^3/ul (0.0-0.5); EOSINOPHILS % 10.6 % (0.0-7.0); HEMATOCRIT 24.9 % (42.0-52.0); HEMOGLOBIN 8.1 g/dl (14.0-18.0); LYMPHOCYTES # 2.1 10^3/ul (0.8-2.9); LYMPHOCYTES % 15.8 % (15.0-51.0); MEAN CORPUSCULAR HEMOGLOBIN 26.6 pg (29.0-33.0); MEAN CORPUSCULAR HGB CONC 32.5 g/dl (32.0-37.0); MEAN CORPUSCULAR VOLUME 81.6 fl (82.0-101.0); MEAN PLATELET VOLUME 9.7 fl (7.4-10.4); MONOCYTE # 1.1 10^3/ul (0.3-0.9); MONOCYTES % 8.4 % (0.0-11.0); NEUTROPHIL # 8.5 10^3/ul (1.6-7.5); NEUTROPHILS % 63.7 % (39.0-77.0); PLATELET COUNT 387 10^3/UL (140-415); RED BLOOD COUNT 3.05 10^6/ul (4.70-6.10); RED CELL DISTRIBUTION WIDTH 15.4 % (11.5-14.5)
[2017-11-09] MEDS: LANSOPRAZOLE 30 MG CAP GTB (06:36)
[2017-11-09] MEDS: LANTHANUM 500 MG CHEW PO ×3 (06:36→18:14)
[2017-11-09] MEDS: SEVELAMER CARBONATE 0.8 GM PKT PO ×3 (06:36→18:14)
[2017-11-09 06:37] LABS: ANION GAP 20 (8-16); BLOOD UREA NITROGEN 48 mg/dl (7-20); CALCIUM 7.4 mg/dl (8.4-10.2); CARBON DIOXIDE 23 mmol/L (21-31); CHLORIDE 96 mmol/L (97-110); CREATININE 8.15 mg/dl (0.61-1.24); GLUCOSE 133 mg/dl (70-220); MAGNESIUM 2.2 mg/dl (1.7-2.5); POTASSIUM 4.1 mmol/L (3.5-5.1); SODIUM 135 mmol/L (135-144)
[2017-11-09] MEDS: DOCUSATE SODIUM 10 MG/ML (10ML CUP) NGT ×2 (09:33→20:46)
[2017-11-09] MEDS: FERROUS SULFATE 60 MG/ML 5ML CUP NGT (09:33)
[2017-11-09] MEDS: ASPIRIN 81 MG TAB PO (09:34)
[2017-11-09] MEDS: QUETIAPINE 100 MG TAB NGT (09:34)
[2017-11-09] MEDS: HEPARIN 5,000 UNIT/0.5 ML VIAL SC ×2 (09:39→20:47)
[2017-11-09] MEDS: FENTAnyl (DRIP) 1000 mcg/100mL 100 ML IV (11:54)
[2017-11-09] MEDS ORDERED: VANCOMYCIN IV PER PHARMACY XX (13:30)
[2017-11-09] MEDS: PIPER-TAZO 2.25 GM (PMX) 50 ML IVPB ×2 (13:55→21:30)
[2017-11-09] MEDS: VANCOMYCIN 2 GM in SOD CHLORIDE 0.9% 500 ML IVPB (14:49)
[2017-11-09] MEDS: ATORVASTATIN 80 MG TAB PO (20:45)
[2017-11-09] MEDS: INSULIN GLARGINE [LANtus] 3 ML PEN SC (22:05)
[2017-11-10] MEDS: Insulin NOVOLOG SS MODERATE Algorithm(NPO/TPN/ENTERAL FEEDS) SC ×6 (00:51→20:44)
[2017-11-10] MEDS: PROPOFOL 100 ML IV ×3 (03:41→19:46)
[2017-11-10 05:17] LABS: ADD MAN DIFF? NO
[2017-11-10 05:28] LABS: BASOPHIL # 0.1 10^3/ul (0.0-0.1); BASOPHILS % 0.9 % (0.0-2.0); EOSINOPHILS # 1.9 10^3/ul (0.0-0.5); EOSINOPHILS % 15.9 % (0.0-7.0); HEMATOCRIT 25.9 % (42.0-52.0); HEMOGLOBIN 8.1 g/dl (14.0-18.0); LYMPHOCYTES # 2.1 10^3/ul (0.8-2.9); LYMPHOCYTES % 17.2 % (15.0-51.0); MEAN CORPUSCULAR HEMOGLOBIN 25.7 pg (29.0-33.0); MEAN CORPUSCULAR HGB CONC 31.3 g/dl (32.0-37.0); MEAN CORPUSCULAR VOLUME 82.2 fl (82.0-101.0); MEAN PLATELET VOLUME 9.5 fl (7.4-10.4); MONOCYTE # 1.5 10^3/ul (0.3-0.9); MONOCYTES % 12.3 % (0.0-11.0); NEUTROPHIL # 6.3 10^3/ul (1.6-7.5); NEUTROPHILS % 52.8 % (39.0-77.0); PLATELET COUNT 361 10^3/UL (140-415); RED BLOOD COUNT 3.15 10^6/ul (4.70-6.10); RED CELL DISTRIBUTION WIDTH 15.7 % (11.5-14.5)
[2017-11-10] MEDS: FENTAnyl (DRIP) 1000 mcg/100mL 100 ML IV (05:36)
[2017-11-10] MEDS: PIPER-TAZO 2.25 GM (PMX) 50 ML IVPB ×3 (05:54→23:23)
[2017-11-10 06:38] LABS: ANION GAP 20 (8-16); BLOOD UREA NITROGEN 38 mg/dl (7-20); CALCIUM 7.6 mg/dl (8.4-10.2); CARBON DIOXIDE 24 mmol/L (21-31); CHLORIDE 96 mmol/L (97-110); CREATININE 6.76 mg/dl (0.61-1.24); GLUCOSE 212 mg/dl (70-220); MAGNESIUM 2.4 mg/dl (1.7-2.5); PHOSPHORUS 4.4 mg/dl (2.5-4.9); SODIUM 136 mmol/L (135-144)
[2017-11-10] MEDS: LANSOPRAZOLE 30 MG CAP GTB (06:46)
[2017-11-10] MEDS: LANTHANUM 500 MG CHEW PO ×3 (06:47→18:37)
[2017-11-10] MEDS: SEVELAMER CARBONATE 0.8 GM PKT PO ×3 (06:47→18:37)
[2017-11-10] MEDS: QUETIAPINE 100 MG TAB NGT (08:01)
[2017-11-10] MEDS: DOCUSATE SODIUM 10 MG/ML (10ML CUP) NGT ×2 (08:01→20:41)
[2017-11-10] MEDS: ASPIRIN 81 MG TAB PO (08:01)
[2017-11-10] MEDS: FERROUS SULFATE 60 MG/ML 5ML CUP NGT (08:01)
[2017-11-10] MEDS: HEPARIN 5,000 UNIT/0.5 ML VIAL SC ×2 (08:06→20:44)
[2017-11-10] MEDS: ATORVASTATIN 80 MG TAB PO (20:41)
[2017-11-10] MEDS: INSULIN GLARGINE [LANtus] 3 ML PEN SC (20:45)
[2017-11-11] MEDS: FENTAnyl (DRIP) 1000 mcg/100mL 100 ML IV ×2 (00:12→18:29)
[2017-11-11] MEDS: Insulin NOVOLOG SS MODERATE Algorithm(NPO/TPN/ENTERAL FEEDS) SC ×6 (01:45→21:04)
[2017-11-11] MEDS: PIPER-TAZO 2.25 GM (PMX) 50 ML IVPB ×3 (05:09→22:19)
[2017-11-11] MEDS: LANSOPRAZOLE 30 MG CAP GTB (05:09)
[2017-11-11 05:31] LABS: ADD MAN DIFF? NO
[2017-11-11 05:48] LABS: ABNORMAL IP MESSAGE 1; BASOPHIL # 0.1 10^3/ul (0.0-0.1); BASOPHILS % 0.9 % (0.0-2.0); EOSINOPHILS # 2.3 10^3/ul (0.0-0.5); EOSINOPHILS % 16.4 % (0.0-7.0); HEMATOCRIT 26.8 % (42.0-52.0); HEMOGLOBIN 8.5 g/dl (14.0-18.0); LYMPHOCYTES # 2.4 10^3/ul (0.8-2.9); LYMPHOCYTES % 16.9 % (15.0-51.0); MEAN CORPUSCULAR HEMOGLOBIN 26.2 pg (29.0-33.0); MEAN CORPUSCULAR HGB CONC 31.7 g/dl (32.0-37.0); MEAN CORPUSCULAR VOLUME 82.7 fl (82.0-101.0); MEAN PLATELET VOLUME 9.5 fl (7.4-10.4); MONOCYTE # 1.5 10^3/ul (0.3-0.9); MONOCYTES % 10.7 % (0.0-11.0); NEUTROPHIL # 7.5 10^3/ul (1.6-7.5); PLATELET COUNT 370 10^3/UL (140-415); POSITIVE DIFF @See below; RED BLOOD COUNT 3.24 10^6/ul (4.70-6.10); RED CELL DISTRIBUTION WIDTH 15.7 % (11.5-14.5)
[2017-11-11 05:48] LABS: WHITE BLOOD COUNT 13.9 10^3/ul (4.8-10.8)
[2017-11-11 06:06] LABS: VANCOMYCIN,RANDOM 26.6 ug/ml
[2017-11-11 06:12] LABS: ANION GAP 19 (8-16); BLOOD UREA NITROGEN 54 mg/dl (7-20); CARBON DIOXIDE 26 mmol/L (21-31); CHLORIDE 96 mmol/L (97-110); CREATININE 8.39 mg/dl (0.61-1.24); GLUCOSE 238 mg/dl (70-220); MAGNESIUM 2.7 mg/dl (1.7-2.5); PHOSPHORUS 4.2 mg/dl (2.5-4.9); SODIUM 137 mmol/L (135-144)
[2017-11-11] MEDS: PROPOFOL 100 ML IV ×3 (07:55→23:04)
[2017-11-11] MEDS: FERROUS SULFATE 60 MG/ML 5ML CUP NGT (08:21)
[2017-11-11] MEDS: LANTHANUM 500 MG CHEW PO ×3 (08:21→18:37)
[2017-11-11] MEDS: SEVELAMER CARBONATE 0.8 GM PKT PO ×3 (08:21→17:43)
[2017-11-11] MEDS: DOCUSATE SODIUM 10 MG/ML (10ML CUP) NGT ×2 (08:21→21:05)
[2017-11-11] MEDS: QUETIAPINE 100 MG TAB NGT (08:22)
[2017-11-11] MEDS: ASPIRIN 81 MG TAB PO (08:23)
[2017-11-11] MEDS: HEPARIN 5,000 UNIT/0.5 ML VIAL SC ×2 (08:26→21:05)
[2017-11-11] MEDS: ONDANSETRON 4 MG INJ IV (13:12)
[2017-11-11] MEDS: EPOETIN 10000 UNITS/1 ML INJ (ESRD) SC (17:43)
[2017-11-11] MEDS: ATORVASTATIN 80 MG TAB PO (21:05)
[2017-11-11] MEDS: INSULIN GLARGINE [LANtus] 3 ML PEN SC (21:05)
[2017-11-12] MEDS: Insulin NOVOLOG SS MODERATE Algorithm(NPO/TPN/ENTERAL FEEDS) SC ×6 (02:00→20:31)
[2017-11-12] MEDS: PIPER-TAZO 2.25 GM (PMX) 50 ML IVPB ×3 (05:15→22:15)
[2017-11-12] MEDS: LANSOPRAZOLE 30 MG CAP GTB (05:15)
[2017-11-12 05:23] LABS: ADD MAN DIFF? NO
[2017-11-12 05:29] LABS: BASOPHIL # 0.1 10^3/ul (0.0-0.1); EOSINOPHILS # 1.8 10^3/ul (0.0-0.5); EOSINOPHILS % 12.7 % (0.0-7.0); HEMATOCRIT 26.8 % (42.0-52.0); HEMOGLOBIN 8.4 g/dl (14.0-18.0); LYMPHOCYTES # 1.9 10^3/ul (0.8-2.9); LYMPHOCYTES % 13.9 % (15.0-51.0); MEAN CORPUSCULAR HEMOGLOBIN 25.9 pg (29.0-33.0); MEAN CORPUSCULAR HGB CONC 31.3 g/dl (32.0-37.0); MEAN CORPUSCULAR VOLUME 82.7 fl (82.0-101.0); MEAN PLATELET VOLUME 9.6 fl (7.4-10.4); MONOCYTE # 1.3 10^3/ul (0.3-0.9); MONOCYTES % 9.4 % (0.0-11.0); NEUTROPHIL # 8.7 10^3/ul (1.6-7.5); NEUTROPHILS % 62.1 % (39.0-77.0); PLATELET COUNT 379 10^3/UL (140-415); RED BLOOD COUNT 3.24 10^6/ul (4.70-6.10); RED CELL DISTRIBUTION WIDTH 16.1 % (11.5-14.5)
[2017-11-12 06:10] LABS: ANION GAP 21 (8-16); BLOOD UREA NITROGEN 40 mg/dl (7-20); CALCIUM 8.6 mg/dl (8.4-10.2); CARBON DIOXIDE 29 mmol/L (21-31); CHLORIDE 98 mmol/L (97-110); CREATININE 7.48 mg/dl (0.61-1.24); GLUCOSE 219 mg/dl (70-220); MAGNESIUM 2.7 mg/dl (1.7-2.5); PHOSPHORUS 4.5 mg/dl (2.5-4.9); POTASSIUM 4.5 mmol/L (3.5-5.1); SODIUM 143 mmol/L (135-144)
[2017-11-12] MEDS: PROPOFOL 100 ML IV ×2 (06:30→23:17)
[2017-11-12] MEDS: QUETIAPINE 100 MG TAB NGT (09:08)
[2017-11-12] MEDS: ASPIRIN 81 MG TAB PO (09:08)
[2017-11-12] MEDS: FERROUS SULFATE 60 MG/ML 5ML CUP NGT (09:09)
[2017-11-12] MEDS: DOCUSATE SODIUM 10 MG/ML (10ML CUP) NGT ×2 (09:09→20:18)
[2017-11-12] MEDS: SEVELAMER CARBONATE 0.8 GM PKT PO ×3 (09:09→17:17)
[2017-11-12] MEDS: LANTHANUM 500 MG CHEW PO ×3 (09:11→20:18)
[2017-11-12] MEDS: HEPARIN 5,000 UNIT/0.5 ML VIAL SC ×2 (09:14→20:33)
[2017-11-12] MEDS: INSULIN GLARGINE [LANtus] 3 ML PEN SC ×2 (17:16→20:32)
[2017-11-12] MEDS: ATORVASTATIN 80 MG TAB PO (20:18)
[2017-11-13] MEDS: FENTAnyl (DRIP) 1000 mcg/100mL 100 ML IV ×2 (00:18→19:03)
[2017-11-13] MEDS: Insulin NOVOLOG SS MODERATE Algorithm(NPO/TPN/ENTERAL FEEDS) SC ×6 (01:12→20:35)
[2017-11-13] MEDS: ALBUTEROL 0.083% (NEB) 2.5 MG/3 ML AMP HHN (02:56)
[2017-11-13] MEDS: PROPOFOL 100 ML IV ×5 (04:22→23:34)
[2017-11-13 05:07] LABS: ADD MAN DIFF? NO
[2017-11-13 05:21] LABS: ABNORMAL IP MESSAGE 1; BASOPHIL # 0.2 10^3/ul (0.0-0.1); BASOPHILS % 0.9 % (0.0-2.0); EOSINOPHILS # 1.2 10^3/ul (0.0-0.5); EOSINOPHILS % 7.8 % (0.0-7.0); HEMOGLOBIN 7.8 g/dl (14.0-18.0); LYMPHOCYTES # 2.9 10^3/ul (0.8-2.9); LYMPHOCYTES % 18.2 % (15.0-51.0); MEAN CORPUSCULAR HGB CONC 31.2 g/dl (32.0-37.0); MEAN CORPUSCULAR VOLUME 83.3 fl (82.0-101.0); MEAN PLATELET VOLUME 9.2 fl (7.4-10.4); MONOCYTE # 1.9 10^3/ul (0.3-0.9); NEUTROPHIL # 9.5 10^3/ul (1.6-7.5); NEUTROPHILS % 60.2 % (39.0-77.0); PLATELET COUNT 350 10^3/UL (140-415); POSITIVE DIFF @See below; RED CELL DISTRIBUTION WIDTH 16.1 % (11.5-14.5)
[2017-11-13 05:21] LABS: WHITE BLOOD COUNT 15.8 10^3/ul (4.8-10.8)
[2017-11-13 05:43] LABS: AADO2 Arterial 26.7 mmHg (7.0-24.0); Arterial Base Excess 0.5 mmol/L (-3.0-3); Arterial Blood Gas Oxygen Sat 98.5 mmHG (95.0-98.0); Arterial COHb 0.3 % (0.0-3.0); Arterial Fraction of Oxyhgb 97.8 % (93.0-99.0); Arterial HCO3 25.6 mmol/L (22.0-26.0); Arterial MetHb 0.4 % (0.0-1.5); Arterial Total Hemglobin 8.7 g/dl (12.0-18.0); Arterial pCO2 43.3 mmhg (35-45); MODE VENT - AC; Site Right Brachial
[2017-11-13 05:49] LABS: VANCOMYCIN,RANDOM 20.8 ug/ml
[2017-11-13] MEDS: PIPER-TAZO 2.25 GM (PMX) 50 ML IVPB (05:51)
[2017-11-13] MEDS: LANSOPRAZOLE 30 MG CAP GTB (05:52)
[2017-11-13 06:23] LABS: ANION GAP 24 (8-16); BLOOD UREA NITROGEN 54 mg/dl (7-20); CALCIUM 8.3 mg/dl (8.4-10.2); CARBON DIOXIDE 26 mmol/L (21-31); CHLORIDE 96 mmol/L (97-110); CREATININE 9.51 mg/dl (0.61-1.24); GLUCOSE 212 mg/dl (70-220); MAGNESIUM 2.9 mg/dl (1.7-2.5); PHOSPHORUS 3.8 mg/dl (2.5-4.9); POTASSIUM 4.6 mmol/L (3.5-5.1); SODIUM 141 mmol/L (135-144)
[2017-11-13] MEDS: FERROUS SULFATE 60 MG/ML 5ML CUP NGT (08:40)
[2017-11-13] MEDS: DOCUSATE SODIUM 10 MG/ML (10ML CUP) NGT ×2 (08:40→20:30)
[2017-11-13] MEDS: LANTHANUM 500 MG CHEW PO ×3 (08:41→17:09)
[2017-11-13] MEDS: SEVELAMER CARBONATE 0.8 GM PKT PO ×3 (08:41→17:09)
[2017-11-13] MEDS: ASPIRIN 81 MG TAB PO (08:42)
[2017-11-13] MEDS: QUETIAPINE 100 MG TAB NGT (08:42)
[2017-11-13] MEDS: HEPARIN 5,000 UNIT/0.5 ML VIAL SC ×2 (08:43→20:34)
[2017-11-13] MEDS: SEVELAMER CARBONATE 2.4 GM PKT PO (17:35)
[2017-11-13] MEDS: ATORVASTATIN 80 MG TAB PO (20:30)
[2017-11-13] MEDS: INSULIN GLARGINE [LANtus] 3 ML PEN SC (20:34)
[2017-11-14] MEDS: Insulin NOVOLOG SS MODERATE Algorithm(NPO/TPN/ENTERAL FEEDS) SC ×6 (01:51→20:09)
[2017-11-14] MEDS: NACL 0.9% 3 ML SYG IV (03:11)
[2017-11-14] MEDS: PROPOFOL 100 ML IV ×5 (04:57→19:06)
[2017-11-14 05:39] LABS: ADD MAN DIFF? NO
[2017-11-14 05:52] LABS: ABNORMAL IP MESSAGE 1; BASOPHIL # 0.2 10^3/ul (0.0-0.1); EOSINOPHILS # 1.5 10^3/ul (0.0-0.5); EOSINOPHILS % 9.5 % (0.0-7.0); HEMOGLOBIN 8.1 g/dl (14.0-18.0); LYMPHOCYTES # 2.9 10^3/ul (0.8-2.9); LYMPHOCYTES % 18.4 % (15.0-51.0); MEAN CORPUSCULAR HGB CONC 31.2 g/dl (32.0-37.0); MEAN CORPUSCULAR VOLUME 83.6 fl (82.0-101.0); MEAN PLATELET VOLUME 9.4 fl (7.4-10.4); MONOCYTE # 1.7 10^3/ul (0.3-0.9); MONOCYTES % 10.7 % (0.0-11.0); NEUTROPHIL # 9.3 10^3/ul (1.6-7.5); NEUTROPHILS % 59.5 % (39.0-77.0); PLATELET COUNT 390 10^3/UL (140-415); POSITIVE DIFF @See below; RED BLOOD COUNT 3.11 10^6/ul (4.70-6.10); RED CELL DISTRIBUTION WIDTH 16.3 % (11.5-14.5)
[2017-11-14 05:52] LABS: WHITE BLOOD COUNT 15.7 10^3/ul (4.8-10.8)
[2017-11-14 06:01] LABS: ANION GAP 24 (8-16); BLOOD UREA NITROGEN 74 mg/dl (7-20); CALCIUM 8.6 mg/dl (8.4-10.2); CARBON DIOXIDE 24 mmol/L (21-31); CHLORIDE 95 mmol/L (97-110); CREATININE 10.68 mg/dl (0.61-1.24); GLUCOSE 183 mg/dl (70-220); MAGNESIUM 3.1 mg/dl (1.7-2.5); PHOSPHORUS 4.2 mg/dl (2.5-4.9); POTASSIUM 4.4 mmol/L (3.5-5.1); SODIUM 139 mmol/L (135-144)
[2017-11-14] MEDS: LANSOPRAZOLE 30 MG CAP GTB (06:39)
[2017-11-14] MEDS: LANTHANUM 500 MG CHEW PO ×3 (08:24→17:20)
[2017-11-14] MEDS: DOCUSATE SODIUM 10 MG/ML (10ML CUP) NGT ×2 (08:25→20:18)
[2017-11-14] MEDS: QUETIAPINE 100 MG TAB NGT (08:25)
[2017-11-14] MEDS: FERROUS SULFATE 60 MG/ML 5ML CUP NGT (08:25)
[2017-11-14] MEDS: ASPIRIN 81 MG TAB PO (08:27)
[2017-11-14] MEDS: FENTAnyl (DRIP) 1000 mcg/100mL 100 ML IV ×2 (08:29→20:05)
[2017-11-14] MEDS ORDERED: MIDAZOLAM (DRIP) 50 mg/50 mL 50 ML IV (08:30)
[2017-11-14] MEDS: HEPARIN 5,000 UNIT/0.5 ML VIAL SC ×2 (08:43→20:19)
[2017-11-14] MEDS: SEVELAMER CARBONATE 2.4 GM PKT PO ×3 (08:48→17:19)
[2017-11-14] MEDS ORDERED: VANCOMYCIN 1 GM 250 ML IVPB (15:00)
[2017-11-14] MEDS: EPOETIN 10000 UNITS/1 ML INJ (ESRD) SC (17:07)
[2017-11-14] MEDS: INSULIN GLARGINE [LANtus] 3 ML PEN SC (20:08)
[2017-11-14] MEDS: ATORVASTATIN 80 MG TAB PO (20:18)
[2017-11-15] MEDS: Insulin NOVOLOG SS MODERATE Algorithm(NPO/TPN/ENTERAL FEEDS) SC ×6 (00:06→20:12)
[2017-11-15] MEDS: PROPOFOL 100 ML IV ×4 (01:57→19:42)
[2017-11-15] MEDS: LANSOPRAZOLE 30 MG CAP GTB (05:41)
[2017-11-15] MEDS: SEVELAMER CARBONATE 2.4 GM PKT PO ×3 (05:41→17:21)
[2017-11-15] MEDS: LANTHANUM 500 MG CHEW PO ×3 (05:42→17:21)
[2017-11-15 05:46] LABS: ADD MAN DIFF? NO
[2017-11-15 05:58] LABS: BASOPHIL # 0.1 10^3/ul (0.0-0.1); BASOPHILS % 0.8 % (0.0-2.0); EOSINOPHILS # 1.8 10^3/ul (0.0-0.5); EOSINOPHILS % 11.4 % (0.0-7.0); HEMATOCRIT 22.9 % (42.0-52.0); HEMOGLOBIN 7.3 g/dl (14.0-18.0); LYMPHOCYTES # 3.6 10^3/ul (0.8-2.9); LYMPHOCYTES % 22.6 % (15.0-51.0); MEAN CORPUSCULAR HEMOGLOBIN 26.1 pg (29.0-33.0); MEAN CORPUSCULAR HGB CONC 31.9 g/dl (32.0-37.0); MEAN CORPUSCULAR VOLUME 81.8 fl (82.0-101.0); MEAN PLATELET VOLUME 9.2 fl (7.4-10.4); MONOCYTE # 1.4 10^3/ul (0.3-0.9); MONOCYTES % 9.2 % (0.0-11.0); NEUTROPHIL # 8.7 10^3/ul (1.6-7.5); NEUTROPHILS % 55.2 % (39.0-77.0); PLATELET COUNT 347 10^3/UL (140-415); RED CELL DISTRIBUTION WIDTH 16.4 % (11.5-14.5)
[2017-11-15 05:58] LABS: WHITE BLOOD COUNT 15.7 10^3/ul (4.8-10.8)
[2017-11-15 06:35] LABS: ALBUMIN 3.5 g/dl (3.3-4.9); ANION GAP 15 (8-16); BLOOD UREA NITROGEN 49 mg/dl (7-20); CARBON DIOXIDE 29 mmol/L (21-31); CHLORIDE 90 mmol/L (97-110); CREATININE 7.64 mg/dl (0.61-1.24); GLUCOSE 168 mg/dl (70-220); MAGNESIUM 2.6 mg/dl (1.7-2.5); PHOSPHORUS 3.7 mg/dl (2.5-4.9); POTASSIUM 3.7 mmol/L (3.5-5.1); SODIUM 130 mmol/L (135-144)
[2017-11-15 08:33] LABS: IRON 37 ug/dl (35-150)
[2017-11-15 08:43] LABS: % IRON SATURATION 20 % SAT (22-52); TOTAL IRON BINDING CAPACITY 189 ug/dl (241-421)
[2017-11-15] MEDS: FERROUS SULFATE 60 MG/ML 5ML CUP NGT (10:07)
[2017-11-15] MEDS: ASPIRIN 81 MG TAB PO (10:08)
[2017-11-15] MEDS: QUETIAPINE 100 MG TAB NGT (10:08)
[2017-11-15] MEDS: HEPARIN 5,000 UNIT/0.5 ML VIAL SC ×2 (10:12→20:16)
[2017-11-15] MEDS: DOCUSATE SODIUM 10 MG/ML (10ML CUP) NGT ×2 (11:16→20:13)
[2017-11-15] MEDS: FENTAnyl (DRIP) 1000 mcg/100mL 100 ML IV (11:36)
[2017-11-15] MEDS ORDERED: CEFAZOLIN 2 GM in SOD CHLORIDE 0.9% 50 ML IVPB (12:30)
[2017-11-15] MEDS ORDERED: CEFAZOLIN 2 GM/50 ML (PMX) 50 ML IVPB (16:00)
[2017-11-15] MEDS: ATORVASTATIN 80 MG TAB PO (20:13)
[2017-11-15] MEDS: INSULIN GLARGINE [LANtus] 3 ML PEN SC (20:15)
[2017-11-15] MEDS: NACL 0.9% 3 ML SYG IV (22:35)
[2017-11-16] MEDS: Insulin NOVOLOG SS MODERATE Algorithm(NPO/TPN/ENTERAL FEEDS) SC ×6 (01:00→20:21)
[2017-11-16] MEDS: PROPOFOL 100 ML IV ×8 (01:27→23:18)
[2017-11-16] MEDS: NACL 0.9% 3 ML SYG IV (03:33)
[2017-11-16] MEDS: LANSOPRAZOLE 30 MG CAP GTB (05:16)
[2017-11-16 05:41] LABS: ADD MAN DIFF? NO
[2017-11-16] MEDS: FENTAnyl (DRIP) 1000 mcg/100mL 100 ML IV ×2 (05:43→20:23)
[2017-11-16 05:48] LABS: ABNORMAL IP MESSAGE 1; BASOPHIL # 0.1 10^3/ul (0.0-0.1); EOSINOPHILS # 2.2 10^3/ul (0.0-0.5); EOSINOPHILS % 15.4 % (0.0-7.0); HEMATOCRIT 22.7 % (42.0-52.0); HEMOGLOBIN 7.4 g/dl (14.0-18.0); LYMPHOCYTES # 3.4 10^3/ul (0.8-2.9); LYMPHOCYTES % 24.2 % (15.0-51.0); MEAN CORPUSCULAR HEMOGLOBIN 26.3 pg (29.0-33.0); MEAN CORPUSCULAR HGB CONC 32.6 g/dl (32.0-37.0); MEAN CORPUSCULAR VOLUME 80.8 fl (82.0-101.0); MEAN PLATELET VOLUME 9.3 fl (7.4-10.4); MONOCYTE # 1.3 10^3/ul (0.3-0.9); MONOCYTES % 9.3 % (0.0-11.0); NEUTROPHIL # 6.9 10^3/ul (1.6-7.5); NEUTROPHILS % 49.2 % (39.0-77.0); PLATELET COUNT 367 10^3/UL (140-415); POSITIVE DIFF @See below; RED BLOOD COUNT 2.81 10^6/ul (4.70-6.10); RED CELL DISTRIBUTION WIDTH 16.1 % (11.5-14.5)
[2017-11-16 06:33] LABS: ALBUMIN 3.5 g/dl (3.3-4.9); ANION GAP 21 (8-16); BLOOD UREA NITROGEN 59 mg/dl (7-20); CALCIUM 8.2 mg/dl (8.4-10.2); CARBON DIOXIDE 25 mmol/L (21-31); CHLORIDE 91 mmol/L (97-110); CREATININE 9.44 mg/dl (0.61-1.24); GLUCOSE 89 mg/dl (70-220); MAGNESIUM 2.7 mg/dl (1.7-2.5); PHOSPHORUS 5.3 mg/dl (2.5-4.9); SODIUM 133 mmol/L (135-144)
[2017-11-16] MEDS: LANTHANUM 500 MG CHEW PO ×3 (06:47→17:27)
[2017-11-16] MEDS: SEVELAMER CARBONATE 2.4 GM PKT PO ×3 (06:47→17:27)
[2017-11-16] MEDS ORDERED: ZIPRASIDONE 20 MG CAP PO (08:00)
[2017-11-16] MEDS: ASPIRIN 81 MG TAB PO (08:48)
[2017-11-16] MEDS: FERROUS SULFATE 60 MG/ML 5ML CUP NGT (08:48)
[2017-11-16] MEDS: DOCUSATE SODIUM 10 MG/ML (10ML CUP) NGT ×2 (08:48→20:18)
[2017-11-16] MEDS: ZIPRASIDONE 20 MG CAP GTB ×2 (08:48→20:18)
[2017-11-16] MEDS: HEPARIN 5,000 UNIT/0.5 ML VIAL SC ×2 (09:00→20:22)
[2017-11-16 09:04] LABS: IMMEDIATE SPIN CROSSMATCH 1 1
[2017-11-16] MEDS: SOD FERRIC GLUC COMPLX 125 MG in SOD CHLORIDE 0.9% 100 ML IVPB (09:57)
[2017-11-16] MEDS: HEPARIN 1000 UNITS/ML 10 ML INJ CATHETER (11:30)
[2017-11-16] MEDS: EPOETIN 10000 UNITS/1 ML INJ (ESRD) SC (17:17)
[2017-11-16] MEDS ORDERED: FENTAnyl 50 MCG/ML VIAL (19:29)
[2017-11-16] MEDS: INSULIN GLARGINE [LANtus] 3 ML PEN SC (20:00)
[2017-11-16] MEDS: ATORVASTATIN 80 MG TAB PO (20:18)
[2017-11-17] MEDS: Insulin NOVOLOG SS MODERATE Algorithm(NPO/TPN/ENTERAL FEEDS) SC ×6 (01:00→20:44)
[2017-11-17] MEDS: PROPOFOL 100 ML IV ×8 (02:20→22:59)
[2017-11-17] MEDS: LANSOPRAZOLE 30 MG CAP GTB (05:21)
[2017-11-17 05:38] LABS: ADD MAN DIFF? NO
[2017-11-17 05:41] LABS: ABNORMAL IP MESSAGE 1; BASOPHIL # 0.1 10^3/ul (0.0-0.1); BASOPHILS % 1.1 % (0.0-2.0); EOSINOPHILS # 2.1 10^3/ul (0.0-0.5); HEMATOCRIT 25.8 % (42.0-52.0); HEMOGLOBIN 8.4 g/dl (14.0-18.0); LYMPHOCYTES # 3.2 10^3/ul (0.8-2.9); LYMPHOCYTES % 24.6 % (15.0-51.0); MEAN CORPUSCULAR HEMOGLOBIN 26.5 pg (29.0-33.0); MEAN CORPUSCULAR HGB CONC 32.6 g/dl (32.0-37.0); MEAN CORPUSCULAR VOLUME 81.4 fl (82.0-101.0); MONOCYTE # 1.2 10^3/ul (0.3-0.9); MONOCYTES % 8.7 % (0.0-11.0); NEUTROPHIL # 6.5 10^3/ul (1.6-7.5); NEUTROPHILS % 49.2 % (39.0-77.0); PLATELET COUNT 398 10^3/UL (140-415); POSITIVE DIFF @See below; RED BLOOD COUNT 3.17 10^6/ul (4.70-6.10); RED CELL DISTRIBUTION WIDTH 16.4 % (11.5-14.5)
[2017-11-17 05:41] LABS: WHITE BLOOD COUNT 13.2 10^3/ul (4.8-10.8)
[2017-11-17 06:12] LABS: ALBUMIN 3.7 g/dl (3.3-4.9); ANION GAP 22 (8-16); BLOOD UREA NITROGEN 40 mg/dl (7-20); CALCIUM 8.1 mg/dl (8.4-10.2); CARBON DIOXIDE 25 mmol/L (21-31); CHLORIDE 89 mmol/L (97-110); CREATININE 7.31 mg/dl (0.61-1.24); GLUCOSE 87 mg/dl (70-220); MAGNESIUM 2.4 mg/dl (1.7-2.5); PHOSPHORUS 5.8 mg/dl (2.5-4.9); SODIUM 132 mmol/L (135-144)
[2017-11-17 06:25] LABS: EOSINOPHILS % 15.7 % (0.0-7.0)
[2017-11-17] MEDS: SEVELAMER CARBONATE 2.4 GM PKT PO ×3 (08:15→17:10)
[2017-11-17] MEDS: LANTHANUM 500 MG CHEW PO ×3 (08:15→17:10)
[2017-11-17 08:28] LABS: AADO2 Arterial 54.3 mmHg (7.0-24.0); Allen Test ACCEPTAB; Arterial Base Excess 0.4 mmol/L (-3.0-3); Arterial Blood Gas Oxygen Sat 97.3 mmHG (95.0-98.0); Arterial COHb 0.3 % (0.0-3.0); Arterial Fraction of Oxyhgb 96.7 % (93.0-99.0); Arterial HCO3 25.9 mmol/L (22.0-26.0); Arterial MetHb 0.3 % (0.0-1.5); Arterial pCO2 45.7 mmhg (35-45); MODE VENT - AC; Site Right Radial
[2017-11-17] MEDS: ASPIRIN 81 MG TAB PO (08:46)
[2017-11-17] MEDS: FERROUS SULFATE 60 MG/ML 5ML CUP NGT (08:46)
[2017-11-17] MEDS: DOCUSATE SODIUM 10 MG/ML (10ML CUP) NGT ×2 (08:46→21:07)
[2017-11-17] MEDS: ZIPRASIDONE 20 MG CAP GTB ×2 (08:47→21:18)
[2017-11-17] MEDS: HEPARIN 5,000 UNIT/0.5 ML VIAL SC ×2 (08:48→21:10)
[2017-11-17 09:02] LABS: PHOSPHORUS 5.9 mg/dl (2.5-4.9)
[2017-11-17] MEDS: SOD FERRIC GLUC COMPLX 125 MG in SOD CHLORIDE 0.9% 100 ML IVPB (10:28)
[2017-11-17] MEDS: FENTAnyl (DRIP) 1000 mcg/100mL 100 ML IV (16:08)
[2017-11-17] MEDS: INSULIN GLARGINE [LANtus] 3 ML PEN SC (20:43)
[2017-11-17] MEDS: ATORVASTATIN 80 MG TAB PO (21:07)
[2017-11-18] MEDS: Insulin NOVOLOG SS MODERATE Algorithm(NPO/TPN/ENTERAL FEEDS) SC ×2 (01:00→05:00)
[2017-11-18] MEDS: PROPOFOL 100 ML IV ×8 (02:24→22:48)
[2017-11-18] MEDS: LANSOPRAZOLE 30 MG CAP GTB (05:10)
[2017-11-18 06:37] LABS: ADD MAN DIFF? NO
[2017-11-18 06:43] LABS: BASOPHIL # 0.1 10^3/ul (0.0-0.1); BASOPHILS % 1.1 % (0.0-2.0); EOSINOPHILS % 17.2 % (0.0-7.0); HEMOGLOBIN 7.9 g/dl (14.0-18.0); LYMPHOCYTES # 3.2 10^3/ul (0.8-2.9); LYMPHOCYTES % 27.5 % (15.0-51.0); MEAN CORPUSCULAR HEMOGLOBIN 26.7 pg (29.0-33.0); MEAN CORPUSCULAR HGB CONC 32.9 g/dl (32.0-37.0); MEAN CORPUSCULAR VOLUME 81.1 fl (82.0-101.0); MEAN PLATELET VOLUME 8.8 fl (7.4-10.4); MONOCYTE # 1.3 10^3/ul (0.3-0.9); MONOCYTES % 11.2 % (0.0-11.0); NEUTROPHIL # 4.9 10^3/ul (1.6-7.5); NEUTROPHILS % 42.3 % (39.0-77.0); PLATELET COUNT 404 10^3/UL (140-415); RED BLOOD COUNT 2.96 10^6/ul (4.70-6.10); RED CELL DISTRIBUTION WIDTH 16.4 % (11.5-14.5)
[2017-11-18 06:43] LABS: WHITE BLOOD COUNT 11.6 10^3/ul (4.8-10.8)
[2017-11-18 07:17] LABS: ALBUMIN 3.4 g/dl (3.3-4.9); ANION GAP 20 (8-16); BLOOD UREA NITROGEN 50 mg/dl (7-20); CALCIUM 8.1 mg/dl (8.4-10.2); CARBON DIOXIDE 25 mmol/L (21-31); CHLORIDE 88 mmol/L (97-110); CREATININE 8.72 mg/dl (0.61-1.24); GLUCOSE 76 mg/dl (70-220); MAGNESIUM 2.4 mg/dl (1.7-2.5); PHOSPHORUS 7.3 mg/dl (2.5-4.9); POTASSIUM 3.9 mmol/L (3.5-5.1); SODIUM 129 mmol/L (135-144)
[2017-11-18] MEDS: LANTHANUM 500 MG CHEW PO ×3 (07:29→16:30)
[2017-11-18] MEDS: SEVELAMER CARBONATE 2.4 GM PKT PO ×3 (07:30→16:30)
[2017-11-18] MEDS: FENTAnyl (DRIP) 1000 mcg/100mL 100 ML IV (10:16)
[2017-11-18] MEDS: DOCUSATE SODIUM 10 MG/ML (10ML CUP) NGT ×2 (11:09→21:12)
[2017-11-18] MEDS: SOD FERRIC GLUC COMPLX 125 MG in SOD CHLORIDE 0.9% 100 ML IVPB (11:09)
[2017-11-18] MEDS: FERROUS SULFATE 60 MG/ML 5ML CUP NGT (11:10)
[2017-11-18] MEDS: ZIPRASIDONE 20 MG CAP GTB ×2 (11:10→21:12)
[2017-11-18] MEDS: ASPIRIN 81 MG TAB PO (11:10)
[2017-11-18] MEDS: HEPARIN 5,000 UNIT/0.5 ML VIAL SC ×2 (11:12→21:14)
[2017-11-18] MEDS: INSULIN ASPART [NOVOLOG] 3 ML PEN SC ×2 (12:00→18:00)
[2017-11-18] MEDS: EPOETIN 10000 UNITS/1 ML INJ (ESRD) SC (18:12)
[2017-11-18] MEDS: INSULIN GLARGINE [LANtus] 3 ML PEN SC (21:07)
[2017-11-18] MEDS: ATORVASTATIN 80 MG TAB PO (21:12)
[2017-11-19] MEDS: PROPOFOL 100 ML IV ×9 (00:42→23:54)
[2017-11-19] MEDS: LANSOPRAZOLE 30 MG CAP GTB (05:44)
[2017-11-19 05:48] LABS: ADD MAN DIFF? NO
[2017-11-19] MEDS: INSULIN ASPART [NOVOLOG] 3 ML PEN SC ×4 (05:57→17:57)
[2017-11-19 06:06] LABS: WHITE BLOOD COUNT 10.5 10^3/ul (4.8-10.8)
[2017-11-19 06:06] LABS: BASOPHIL # 0.1 10^3/ul (0.0-0.1); EOSINOPHILS # 1.6 10^3/ul (0.0-0.5); EOSINOPHILS % 15.4 % (0.0-7.0); HEMATOCRIT 25.5 % (42.0-52.0); HEMOGLOBIN 8.4 g/dl (14.0-18.0); LYMPHOCYTES # 2.6 10^3/ul (0.8-2.9); MEAN CORPUSCULAR HGB CONC 32.9 g/dl (32.0-37.0); MEAN PLATELET VOLUME 8.6 fl (7.4-10.4); MONOCYTE # 1.1 10^3/ul (0.3-0.9); MONOCYTES % 10.2 % (0.0-11.0); NEUTROPHILS % 47.4 % (39.0-77.0); PLATELET COUNT 401 10^3/UL (140-415); RED BLOOD COUNT 3.11 10^6/ul (4.70-6.10); RED CELL DISTRIBUTION WIDTH 17.3 % (11.5-14.5)
[2017-11-19] MEDS: FENTAnyl (DRIP) 1000 mcg/100mL 100 ML IV (06:29)
[2017-11-19 06:30] LABS: ALBUMIN 3.3 g/dl (3.3-4.9); ANION GAP 17 (8-16); BLOOD UREA NITROGEN 30 mg/dl (7-20); CALCIUM 8.1 mg/dl (8.4-10.2); CARBON DIOXIDE 28 mmol/L (21-31); CHLORIDE 91 mmol/L (97-110); CREATININE 6.06 mg/dl (0.61-1.24); GLUCOSE 70 mg/dl (70-220); MAGNESIUM 2.1 mg/dl (1.7-2.5); PHOSPHORUS 6.1 mg/dl (2.5-4.9); POTASSIUM 3.5 mmol/L (3.5-5.1)
[2017-11-19] MEDS: SEVELAMER CARBONATE 2.4 GM PKT PO ×3 (07:35→17:35)
[2017-11-19] MEDS: LANTHANUM 500 MG CHEW PO ×3 (07:35→17:35)
[2017-11-19 09:18] LABS: SODIUM 132 mmol/L (135-144)
[2017-11-19] MEDS: ASPIRIN 81 MG TAB PO (10:19)
[2017-11-19] MEDS: FERROUS SULFATE 60 MG/ML 5ML CUP NGT (10:19)
[2017-11-19] MEDS: DOCUSATE SODIUM 10 MG/ML (10ML CUP) NGT ×2 (10:19→21:02)
[2017-11-19] MEDS: ZIPRASIDONE 20 MG CAP GTB ×2 (10:19→21:19)
[2017-11-19] MEDS: HEPARIN 5,000 UNIT/0.5 ML VIAL SC ×2 (10:21→21:04)
[2017-11-19] MEDS: SOD FERRIC GLUC COMPLX 125 MG in SOD CHLORIDE 0.9% 100 ML IVPB (11:35)
[2017-11-19] MEDS: INSULIN GLARGINE [LANtus] 3 ML PEN SC (20:54)
[2017-11-19] MEDS: ATORVASTATIN 80 MG TAB PO (21:02)
[2017-11-20] MEDS ORDERED: MIDAZOLAM 1 MG/ML 2 ML INJ (01:12)
[2017-11-20] MEDS: MIDAZOLAM 1 MG/ML 2 ML INJ IV (01:21)
[2017-11-20] MEDS: PROPOFOL 100 ML IV ×8 (02:52→23:12)
[2017-11-20] MEDS: MIDAZOLAM (DRIP) 50 mg/50 mL 50 ML IV ×2 (05:06→17:13)
[2017-11-20] MEDS: LANSOPRAZOLE 30 MG CAP GTB (05:09)
[2017-11-20] MEDS: INSULIN ASPART [NOVOLOG] 3 ML PEN SC ×5 (06:21→23:10)
[2017-11-20 06:32] LABS: WHITE BLOOD COUNT 12.1 10^3/ul (4.8-10.8)
[2017-11-20 06:32] LABS: ADD MAN DIFF? NO; BASOPHIL # 0.1 10^3/ul (0.0-0.1); BASOPHILS % 1.1 % (0.0-2.0); EOSINOPHILS # 1.4 10^3/ul (0.0-0.5); EOSINOPHILS % 11.8 % (0.0-7.0); HEMATOCRIT 25.9 % (42.0-52.0); HEMOGLOBIN 8.4 g/dl (14.0-18.0); LYMPHOCYTES # 2.7 10^3/ul (0.8-2.9); MEAN CORPUSCULAR HEMOGLOBIN 26.5 pg (29.0-33.0); MEAN CORPUSCULAR HGB CONC 32.4 g/dl (32.0-37.0); MEAN CORPUSCULAR VOLUME 81.7 fl (82.0-101.0); MEAN PLATELET VOLUME 8.5 fl (7.4-10.4); MONOCYTES % 7.8 % (0.0-11.0); NEUTROPHIL # 6.8 10^3/ul (1.6-7.5); NEUTROPHILS % 56.1 % (39.0-77.0); PLATELET COUNT 474 10^3/UL (140-415); RED BLOOD COUNT 3.17 10^6/ul (4.70-6.10); RED CELL DISTRIBUTION WIDTH 17.2 % (11.5-14.5)
[2017-11-20 07:03] LABS: ALBUMIN 3.4 g/dl (3.3-4.9); ANION GAP 21 (8-16); BLOOD UREA NITROGEN 41 mg/dl (7-20); CALCIUM 7.6 mg/dl (8.4-10.2); CARBON DIOXIDE 25 mmol/L (21-31); CHLORIDE 90 mmol/L (97-110); CREATININE 6.62 mg/dl (0.61-1.24); GLUCOSE 142 mg/dl (70-220); MAGNESIUM 2.2 mg/dl (1.7-2.5); PHOSPHORUS 7.5 mg/dl (2.5-4.9); POTASSIUM 4.2 mmol/L (3.5-5.1); SODIUM 132 mmol/L (135-144)
[2017-11-20] MEDS: ZIPRASIDONE 20 MG CAP GTB ×2 (09:21→20:41)
[2017-11-20] MEDS: ASPIRIN 81 MG TAB PO (09:21)
[2017-11-20] MEDS: DOCUSATE SODIUM 10 MG/ML (10ML CUP) NGT ×2 (09:21→20:41)
[2017-11-20] MEDS: FERROUS SULFATE 60 MG/ML 5ML CUP NGT (09:21)
[2017-11-20] MEDS: SEVELAMER CARBONATE 2.4 GM PKT PO ×3 (09:21→17:16)
[2017-11-20] MEDS: LANTHANUM 500 MG CHEW PO ×3 (09:21→17:16)
[2017-11-20] MEDS: HEPARIN 5,000 UNIT/0.5 ML VIAL SC ×2 (09:46→20:45)
[2017-11-20] MEDS: SOD FERRIC GLUC COMPLX 125 MG in SOD CHLORIDE 0.9% 100 ML IVPB (10:27)
[2017-11-20] MEDS: FENTAnyl (DRIP) 1000 mcg/100mL 100 ML IV ×3 (10:33→19:25)
[2017-11-20] MEDS: ATORVASTATIN 80 MG TAB PO (20:41)
[2017-11-20] MEDS: INSULIN GLARGINE [LANtus] 3 ML PEN SC (20:46)
[2017-11-21] MEDS: PROPOFOL 100 ML IV ×5 (02:14→21:22)
[2017-11-21] MEDS: LANSOPRAZOLE 30 MG CAP GTB (06:15)
[2017-11-21 06:24] LABS: ADD MAN DIFF? NO
[2017-11-21 06:26] LABS: WHITE BLOOD COUNT 15.3 10^3/ul (4.8-10.8)
[2017-11-21 06:26] LABS: BASOPHIL # 0.2 10^3/ul (0.0-0.1); BASOPHILS % 1.2 % (0.0-2.0); EOSINOPHILS # 1.8 10^3/ul (0.0-0.5); EOSINOPHILS % 11.7 % (0.0-7.0); HEMATOCRIT 27.7 % (42.0-52.0); HEMOGLOBIN 8.9 g/dl (14.0-18.0); LYMPHOCYTES # 3.1 10^3/ul (0.8-2.9); LYMPHOCYTES % 20.6 % (15.0-51.0); MEAN CORPUSCULAR HEMOGLOBIN 26.9 pg (29.0-33.0); MEAN CORPUSCULAR HGB CONC 32.1 g/dl (32.0-37.0); MEAN CORPUSCULAR VOLUME 83.7 fl (82.0-101.0); MEAN PLATELET VOLUME 8.9 fl (7.4-10.4); MONOCYTE # 1.3 10^3/ul (0.3-0.9); MONOCYTES % 8.7 % (0.0-11.0); NEUTROPHIL # 8.5 10^3/ul (1.6-7.5); NEUTROPHILS % 55.9 % (39.0-77.0); PLATELET COUNT 423 10^3/UL (140-415); RED BLOOD COUNT 3.31 10^6/ul (4.70-6.10); RED CELL DISTRIBUTION WIDTH 18.4 % (11.5-14.5)
[2017-11-21] MEDS: FENTAnyl (DRIP) 1000 mcg/100mL 100 ML IV ×2 (06:29→21:25)
[2017-11-21] MEDS: INSULIN ASPART [NOVOLOG] 3 ML PEN SC ×3 (06:35→17:24)
[2017-11-21 07:06] LABS: ALBUMIN 3.2 g/dl (3.3-4.9); ANION GAP 19 (8-16); BLOOD UREA NITROGEN 34 mg/dl (7-20); CALCIUM 8.8 mg/dl (8.4-10.2); CARBON DIOXIDE 25 mmol/L (21-31); CHLORIDE 93 mmol/L (97-110); CREATININE 4.76 mg/dl (0.61-1.24); GLUCOSE 122 mg/dl (70-220); MAGNESIUM 2.2 mg/dl (1.7-2.5); PHOSPHORUS 5.3 mg/dl (2.5-4.9); SODIUM 133 mmol/L (135-144)
[2017-11-21] MEDS: DOCUSATE SODIUM 10 MG/ML (10ML CUP) NGT ×2 (08:40→21:21)
[2017-11-21] MEDS: SEVELAMER CARBONATE 2.4 GM PKT PO ×3 (08:40→17:04)
[2017-11-21] MEDS: ZIPRASIDONE 20 MG CAP GTB ×2 (08:40→21:21)
[2017-11-21] MEDS: LANTHANUM 500 MG CHEW PO ×3 (08:40→17:03)
[2017-11-21] MEDS: ASPIRIN 81 MG TAB PO (08:40)
[2017-11-21] MEDS: HEPARIN 5,000 UNIT/0.5 ML VIAL SC ×2 (08:42→21:25)
[2017-11-21] MEDS: FERROUS SULFATE 60 MG/ML 5ML CUP NGT (08:43)
[2017-11-21] MEDS ORDERED: CEFEPIME 1GM/50 ML (PMX) 50 ML IVPB (15:45)
[2017-11-21] MEDS: EPOETIN 10000 UNITS/1 ML INJ (ESRD) SC (17:24)
[2017-11-21] MEDS: hydrALAzine 20 MG INJ IV (18:05)
[2017-11-21] MEDS: ATORVASTATIN 80 MG TAB PO (21:21)
[2017-11-21] MEDS: INSULIN GLARGINE [LANtus] 3 ML PEN SC (21:24)
[2017-11-22] MEDS: CEFEPIME 1GM/50 ML (PMX) 50 ML IVPB ×2 (01:20→20:52)
[2017-11-22] MEDS: hydrALAzine 20 MG INJ IV (02:32)
[2017-11-22] MEDS: PROPOFOL 100 ML IV ×2 (03:26→08:29)
[2017-11-22] MEDS: LANSOPRAZOLE 30 MG CAP GTB (05:47)
[2017-11-22 05:49] LABS: ADD MAN DIFF? NO
[2017-11-22] MEDS: INSULIN ASPART [NOVOLOG] 3 ML PEN SC ×4 (05:56→17:39)
[2017-11-22 06:03] LABS: ABNORMAL IP MESSAGE 1; BASOPHIL # 0.2 10^3/ul (0.0-0.1); BASOPHILS % 0.9 % (0.0-2.0); EOSINOPHILS # 1.5 10^3/ul (0.0-0.5); EOSINOPHILS % 8.4 % (0.0-7.0); HEMATOCRIT 28.1 % (42.0-52.0); LYMPHOCYTES # 3.1 10^3/ul (0.8-2.9); LYMPHOCYTES % 17.3 % (15.0-51.0); MEAN CORPUSCULAR HEMOGLOBIN 26.8 pg (29.0-33.0); MEAN CORPUSCULAR VOLUME 83.6 fl (82.0-101.0); MEAN PLATELET VOLUME 8.6 fl (7.4-10.4); MONOCYTE # 1.5 10^3/ul (0.3-0.9); MONOCYTES % 8.5 % (0.0-11.0); NEUTROPHIL # 11.3 10^3/ul (1.6-7.5); NEUTROPHILS % 63.2 % (39.0-77.0); PLATELET COUNT 481 10^3/UL (140-415); POSITIVE DIFF @See below; RED BLOOD COUNT 3.36 10^6/ul (4.70-6.10); RED CELL DISTRIBUTION WIDTH 18.7 % (11.5-14.5)
[2017-11-22 06:45] LABS: ALBUMIN 3.4 g/dl (3.3-4.9); ANION GAP 19 (8-16); BLOOD UREA NITROGEN 22 mg/dl (7-20); CALCIUM 8.4 mg/dl (8.4-10.2); CARBON DIOXIDE 26 mmol/L (21-31); CHLORIDE 98 mmol/L (97-110); CREATININE 3.87 mg/dl (0.61-1.24); GLUCOSE 160 mg/dl (70-220); MAGNESIUM 2.1 mg/dl (1.7-2.5); PHOSPHORUS 3.9 mg/dl (2.5-4.9); POTASSIUM 4.2 mmol/L (3.5-5.1); SODIUM 139 mmol/L (135-144)
[2017-11-22] MEDS: DOCUSATE SODIUM 10 MG/ML (10ML CUP) NGT ×2 (08:22→20:51)
[2017-11-22] MEDS: FERROUS SULFATE 60 MG/ML 5ML CUP NGT (08:22)
[2017-11-22] MEDS: ZIPRASIDONE 20 MG CAP GTB ×2 (08:23→20:52)
[2017-11-22] MEDS: ASPIRIN 81 MG TAB PO (08:23)
[2017-11-22] MEDS: LANTHANUM 500 MG CHEW PO ×3 (08:24→17:34)
[2017-11-22] MEDS: SEVELAMER CARBONATE 2.4 GM PKT PO ×3 (08:25→17:34)
[2017-11-22] MEDS: HEPARIN 5,000 UNIT/0.5 ML VIAL SC ×2 (08:26→20:55)
[2017-11-22] MEDS ORDERED: morphine 2 MG INJ IV (10:30)
[2017-11-22] MEDS: VALPROIC ACID LIQUID CUP 250 MG/5 ML CUP GTB ×3 (10:43→20:52)
[2017-11-22] MEDS: QUETIAPINE 100 MG TAB GTB (12:46)
[2017-11-22] MEDS: ATORVASTATIN 80 MG TAB PO (20:52)
[2017-11-22] MEDS: INSULIN GLARGINE [LANtus] 3 ML PEN SC (21:07)
[2017-11-23] MEDS: INSULIN ASPART [NOVOLOG] 3 ML PEN SC ×5 (00:17→23:55)
[2017-11-23] MEDS: LORAZEPAM 2 MG INJ IV ×4 (03:12→17:50)
[2017-11-23 05:42] LABS: ADD MAN DIFF? NO
[2017-11-23 05:52] LABS: ABNORMAL IP MESSAGE 1; BASOPHIL # 0.1 10^3/ul (0.0-0.1); BASOPHILS % 0.8 % (0.0-2.0); EOSINOPHILS # 1.3 10^3/ul (0.0-0.5); EOSINOPHILS % 7.7 % (0.0-7.0); HEMOGLOBIN 7.8 g/dl (14.0-18.0); LYMPHOCYTES # 3.3 10^3/ul (0.8-2.9); MEAN CORPUSCULAR HEMOGLOBIN 26.5 pg (29.0-33.0); MEAN CORPUSCULAR HGB CONC 31.2 g/dl (32.0-37.0); MEAN PLATELET VOLUME 9.7 fl (7.4-10.4); MONOCYTE # 1.8 10^3/ul (0.3-0.9); MONOCYTES % 10.2 % (0.0-11.0); NEUTROPHIL # 10.4 10^3/ul (1.6-7.5); NEUTROPHILS % 60.8 % (39.0-77.0); NUCLEATED RED BLOOD CELLS% 0.1 /100WBC (0.0-0.0); PLATELET COUNT 388 10^3/UL (140-415); POSITIVE DIFF @See below; RED BLOOD COUNT 2.94 10^6/ul (4.70-6.10); RED CELL DISTRIBUTION WIDTH 18.9 % (11.5-14.5)
[2017-11-23 05:52] LABS: WHITE BLOOD COUNT 17.1 10^3/ul (4.8-10.8)
[2017-11-23 06:32] LABS: ALBUMIN 3.2 g/dl (3.3-4.9); ANION GAP 16 (8-16); BLOOD UREA NITROGEN 36 mg/dl (7-20); CALCIUM 8.2 mg/dl (8.4-10.2); CARBON DIOXIDE 24 mmol/L (21-31); CHLORIDE 97 mmol/L (97-110); CREATININE 4.93 mg/dl (0.61-1.24); GLUCOSE 150 mg/dl (70-220); MAGNESIUM 2.3 mg/dl (1.7-2.5); PHOSPHORUS 2.7 mg/dl (2.5-4.9); POTASSIUM 3.9 mmol/L (3.5-5.1); SODIUM 133 mmol/L (135-144)
[2017-11-23] MEDS: LANTHANUM 500 MG CHEW PO ×3 (06:40→17:05)
[2017-11-23] MEDS: SEVELAMER CARBONATE 2.4 GM PKT PO ×3 (06:40→17:04)
[2017-11-23] MEDS: LANSOPRAZOLE 30 MG CAP GTB (06:41)
[2017-11-23] MEDS: morphine LIQ (10 MG/5 ML) CUP PO (08:58)
[2017-11-23] MEDS: ASPIRIN 81 MG TAB PO (09:01)
[2017-11-23] MEDS: QUETIAPINE 100 MG TAB GTB (09:01)
[2017-11-23] MEDS: FERROUS SULFATE 60 MG/ML 5ML CUP NGT (09:01)
[2017-11-23] MEDS: ZIPRASIDONE 20 MG CAP GTB ×2 (09:01→20:22)
[2017-11-23] MEDS: DOCUSATE SODIUM 10 MG/ML (10ML CUP) NGT ×2 (09:01→20:22)
[2017-11-23] MEDS: VALPROIC ACID LIQUID CUP 250 MG/5 ML CUP GTB ×3 (09:01→20:31)
[2017-11-23] MEDS: HEPARIN 5,000 UNIT/0.5 ML VIAL SC ×2 (09:09→20:25)
[2017-11-23] MEDS: PROPOFOL 100 ML IV ×2 (10:00→21:36)
[2017-11-23 11:29] LABS: HEPATITIS B SURFACE ANTIGEN NEGATIVE (NEGATIVE)
[2017-11-23] MEDS ORDERED: VANCOMYCIN IV PER PHARMACY XX (13:30)
[2017-11-23 14:40] LABS: HEPATITIS B SURFACE ANTIBODY NEGATIVE (NEGATIVE)
[2017-11-23] MEDS: VANCOMYCIN 1.25 GM in SOD CHLORIDE 0.45% 250 ML IVPB (15:48)
[2017-11-23] MEDS: EPOETIN 10000 UNITS/1 ML INJ (ESRD) SC (17:06)
[2017-11-23] MEDS: ATORVASTATIN 80 MG TAB PO (20:22)
[2017-11-23] MEDS: CEFEPIME 1GM/50 ML (PMX) 50 ML IVPB (20:23)
[2017-11-23] MEDS: INSULIN GLARGINE [LANtus] 3 ML PEN SC (20:24)
[2017-11-24] MEDS: LORAZEPAM 2 MG INJ IV ×4 (00:51→14:09)
[2017-11-24] MEDS: LANSOPRAZOLE 30 MG CAP GTB (05:30)
[2017-11-24] MEDS: INSULIN ASPART [NOVOLOG] 3 ML PEN SC ×3 (05:37→17:55)
[2017-11-24 06:19] LABS: ADD MAN DIFF? NO
[2017-11-24 06:49] LABS: WHITE BLOOD COUNT 17.1 10^3/ul (4.8-10.8)
[2017-11-24 06:49] LABS: ABNORMAL IP MESSAGE 1; BASOPHIL # 0.2 10^3/ul (0.0-0.1); BASOPHILS % 1.2 % (0.0-2.0); EOSINOPHILS # 1.7 10^3/ul (0.0-0.5); EOSINOPHILS % 9.7 % (0.0-7.0); HEMATOCRIT 26.8 % (42.0-52.0); HEMOGLOBIN 8.5 g/dl (14.0-18.0); LYMPHOCYTES # 3.4 10^3/ul (0.8-2.9); LYMPHOCYTES % 19.6 % (15.0-51.0); MEAN CORPUSCULAR HEMOGLOBIN 26.8 pg (29.0-33.0); MEAN CORPUSCULAR HGB CONC 31.7 g/dl (32.0-37.0); MEAN CORPUSCULAR VOLUME 84.5 fl (82.0-101.0); MEAN PLATELET VOLUME 8.9 fl (7.4-10.4); MONOCYTE # 1.8 10^3/ul (0.3-0.9); MONOCYTES % 10.8 % (0.0-11.0); NEUTROPHIL # 9.9 10^3/ul (1.6-7.5); NEUTROPHILS % 57.6 % (39.0-77.0); NUCLEATED RED BLOOD CELLS% 0.1 /100WBC (0.0-0.0); PLATELET COUNT 481 10^3/UL (140-415); POSITIVE DIFF @See below; RED BLOOD COUNT 3.17 10^6/ul (4.70-6.10)
[2017-11-24 07:04] LABS: ANION GAP 17 (8-16); BLOOD UREA NITROGEN 32 mg/dl (7-20); CALCIUM 8.2 mg/dl (8.4-10.2); CARBON DIOXIDE 28 mmol/L (21-31); CHLORIDE 97 mmol/L (97-110); CREATININE 4.69 mg/dl (0.61-1.24); GLUCOSE 191 mg/dl (70-220); MAGNESIUM 2.5 mg/dl (1.7-2.5); PHOSPHORUS 2.2 mg/dl (2.5-4.9); POTASSIUM 3.6 mmol/L (3.5-5.1); SODIUM 138 mmol/L (135-144)
[2017-11-24] MEDS: FERROUS SULFATE 60 MG/ML 5ML CUP NGT (08:38)
[2017-11-24] MEDS: DOCUSATE SODIUM 10 MG/ML (10ML CUP) NGT ×2 (08:38→20:31)
[2017-11-24] MEDS: VALPROIC ACID LIQUID CUP 250 MG/5 ML CUP GTB ×3 (08:40→20:31)
[2017-11-24] MEDS: ASPIRIN 81 MG TAB PO (08:40)
[2017-11-24] MEDS: LANTHANUM 500 MG CHEW PO ×3 (08:41→17:56)
[2017-11-24] MEDS: SEVELAMER CARBONATE 2.4 GM PKT PO (08:42)
[2017-11-24] MEDS: ZIPRASIDONE 20 MG CAP GTB ×2 (08:49→20:32)
[2017-11-24] MEDS: HEPARIN 5,000 UNIT/0.5 ML VIAL SC ×2 (08:50→20:46)
[2017-11-24] MEDS: FENTAnyl 50 MCG/ML VIAL IV (09:12)
[2017-11-24] MEDS: morphine 2 MG INJ IV (14:08)
[2017-11-24] MEDS: MAGNESIUM HYDROXIDE 30ML CUP PO (16:39)
[2017-11-24] MEDS: CEFEPIME 1GM/50 ML (PMX) 50 ML IVPB (20:31)
[2017-11-24] MEDS: ATORVASTATIN 80 MG TAB PO (20:32)
[2017-11-24] MEDS: INSULIN GLARGINE [LANtus] 3 ML PEN SC (20:37)
[2017-11-25] MEDS: INSULIN ASPART [NOVOLOG] 3 ML PEN SC ×4 (00:06→17:25)
[2017-11-25] MEDS: LORAZEPAM 2 MG INJ IV ×4 (02:55→17:54)
[2017-11-25] MEDS: LANSOPRAZOLE 30 MG CAP GTB (05:43)
[2017-11-25 05:51] LABS: ADD MAN DIFF? NO
[2017-11-25 05:58] LABS: ABNORMAL IP MESSAGE 1; BASOPHIL # 0.2 10^3/ul (0.0-0.1); EOSINOPHILS # 1.6 10^3/ul (0.0-0.5); EOSINOPHILS % 10.5 % (0.0-7.0); HEMOGLOBIN 8.2 g/dl (14.0-18.0); LYMPHOCYTES # 3.7 10^3/ul (0.8-2.9); LYMPHOCYTES % 24.3 % (15.0-51.0); MEAN CORPUSCULAR HGB CONC 31.5 g/dl (32.0-37.0); MEAN CORPUSCULAR VOLUME 85.5 fl (82.0-101.0); MEAN PLATELET VOLUME 8.8 fl (7.4-10.4); MONOCYTE # 1.6 10^3/ul (0.3-0.9); MONOCYTES % 10.5 % (0.0-11.0); NEUTROPHIL # 8.1 10^3/ul (1.6-7.5); NEUTROPHILS % 52.8 % (39.0-77.0); PLATELET COUNT 428 10^3/UL (140-415); POSITIVE DIFF @See below; RED BLOOD COUNT 3.04 10^6/ul (4.70-6.10); RED CELL DISTRIBUTION WIDTH 19.4 % (11.5-14.5)
[2017-11-25 05:58] LABS: WHITE BLOOD COUNT 15.4 10^3/ul (4.8-10.8)
[2017-11-25 06:38] LABS: VANCOMYCIN,RANDOM 17.1 ug/ml
[2017-11-25 06:46] LABS: ANION GAP 19 (8-16); BLOOD UREA NITROGEN 46 mg/dl (7-20); CALCIUM 8.1 mg/dl (8.4-10.2); CARBON DIOXIDE 27 mmol/L (21-31); CHLORIDE 97 mmol/L (97-110); CREATININE 6.41 mg/dl (0.61-1.24); GLUCOSE 109 mg/dl (70-220); PHOSPHORUS 2.5 mg/dl (2.5-4.9); POTASSIUM 3.7 mmol/L (3.5-5.1); SODIUM 139 mmol/L (135-144)
[2017-11-25] MEDS: morphine 2 MG INJ IV ×3 (09:45→18:21)
[2017-11-25] MEDS: MAGNESIUM HYDROXIDE 30ML CUP PO (09:45)
[2017-11-25] MEDS: DOCUSATE SODIUM 10 MG/ML (10ML CUP) NGT ×2 (09:45→20:22)
[2017-11-25] MEDS: FERROUS SULFATE 60 MG/ML 5ML CUP NGT (09:45)
[2017-11-25] MEDS: LANTHANUM 500 MG CHEW PO ×3 (09:46→17:25)
[2017-11-25] MEDS: ASPIRIN 81 MG TAB PO (09:46)
[2017-11-25] MEDS: VALPROIC ACID LIQUID CUP 250 MG/5 ML CUP GTB ×3 (09:55→20:22)
[2017-11-25] MEDS: ZIPRASIDONE 20 MG CAP GTB ×2 (09:55→20:22)
[2017-11-25] MEDS: HEPARIN 5,000 UNIT/0.5 ML VIAL SC ×2 (10:49→20:32)
[2017-11-25] MEDS: ACETAMINOPHEN 325 MG TAB PO (12:36)
[2017-11-25] MEDS: EPOETIN 10000 UNITS/1 ML INJ (ESRD) SC (17:25)
[2017-11-25] MEDS: CEFEPIME 1GM/50 ML (PMX) 50 ML IVPB (20:03)
[2017-11-25] MEDS: INSULIN GLARGINE [LANtus] 3 ML PEN SC (20:05)
[2017-11-25] MEDS: ATORVASTATIN 80 MG TAB PO (20:22)
[2017-11-25] MEDS: VANCOMYCIN 750 MG in DEXTROSE 5% 150 ML IVPB (20:23)
[2017-11-26] MEDS: HEPARIN 1000 UNITS/ML 10 ML INJ CATHETER (02:12)
[2017-11-26] MEDS: INSULIN ASPART [NOVOLOG] 3 ML PEN SC ×4 (02:48→18:04)
[2017-11-26] MEDS: LORAZEPAM 2 MG INJ IV ×2 (02:58→20:06)
[2017-11-26] MEDS: LANSOPRAZOLE 30 MG CAP GTB (05:12)
[2017-11-26 05:36] LABS: ADD MAN DIFF? NO
[2017-11-26 06:20] LABS: VALPROATE 20 ug/ml (50-100)
[2017-11-26 06:25] LABS: ANION GAP 17 (8-16); BLOOD UREA NITROGEN 30 mg/dl (7-20); CALCIUM 7.8 mg/dl (8.4-10.2); CARBON DIOXIDE 27 mmol/L (21-31); CHLORIDE 98 mmol/L (97-110); CREATININE 4.16 mg/dl (0.61-1.24); GLUCOSE 153 mg/dl (70-220); MAGNESIUM 2.7 mg/dl (1.7-2.5); PHOSPHORUS 1.5 mg/dl (2.5-4.9); POTASSIUM 3.9 mmol/L (3.5-5.1); SODIUM 138 mmol/L (135-144)
[2017-11-26] MEDS: LANTHANUM 500 MG CHEW PO ×3 (07:55→18:03)
[2017-11-26 09:05] LABS: ABNORMAL IP MESSAGE 1; BASOPHIL # 0.1 10^3/ul (0.0-0.1); EOSINOPHILS # 1.4 10^3/ul (0.0-0.5); EOSINOPHILS % 10.1 % (0.0-7.0); HEMATOCRIT 26.4 % (42.0-52.0); HEMOGLOBIN 8.2 g/dl (14.0-18.0); LYMPHOCYTES # 3.1 10^3/ul (0.8-2.9); LYMPHOCYTES % 22.1 % (15.0-51.0); MEAN CORPUSCULAR HEMOGLOBIN 26.7 pg (29.0-33.0); MEAN CORPUSCULAR HGB CONC 31.1 g/dl (32.0-37.0); MONOCYTE # 1.6 10^3/ul (0.3-0.9); MONOCYTES % 11.1 % (0.0-11.0); NEUTROPHIL # 7.7 10^3/ul (1.6-7.5); PLATELET COUNT 449 10^3/UL (140-415); POSITIVE DIFF @See below; RED BLOOD COUNT 3.07 10^6/ul (4.70-6.10); RED CELL DISTRIBUTION WIDTH 18.9 % (11.5-14.5)
[2017-11-26 09:05] LABS: WHITE BLOOD COUNT 13.9 10^3/ul (4.8-10.8)
[2017-11-26] MEDS: FERROUS SULFATE 60 MG/ML 5ML CUP NGT (10:05)
[2017-11-26] MEDS: DOCUSATE SODIUM 10 MG/ML (10ML CUP) NGT ×2 (10:06→22:00)
[2017-11-26] MEDS: ZIPRASIDONE 20 MG CAP GTB ×2 (10:06→22:01)
[2017-11-26] MEDS: ASPIRIN 81 MG TAB PO (10:06)
[2017-11-26] MEDS: VALPROIC ACID LIQUID CUP 250 MG/5 ML CUP GTB ×3 (10:08→22:01)
[2017-11-26] MEDS: HEPARIN 5,000 UNIT/0.5 ML VIAL SC ×2 (10:09→22:04)
[2017-11-26] MEDS: CEFEPIME 1GM/50 ML (PMX) 50 ML IVPB (22:00)
[2017-11-26] MEDS: ATORVASTATIN 80 MG TAB PO (22:02)
[2017-11-26] MEDS: INSULIN GLARGINE [LANtus] 3 ML PEN SC (22:05)
[2017-11-27] MEDS: LORAZEPAM 2 MG INJ IV ×3 (00:06→10:02)
[2017-11-27] MEDS: INSULIN ASPART [NOVOLOG] 3 ML PEN SC ×4 (00:11→17:24)
[2017-11-27] MEDS: LANSOPRAZOLE 30 MG CAP GTB (05:48)
[2017-11-27 06:20] LABS: ADD MAN DIFF? NO
[2017-11-27 06:32] LABS: WHITE BLOOD COUNT 14.2 10^3/ul (4.8-10.8)
[2017-11-27 06:32] LABS: ABNORMAL IP MESSAGE 1; BASOPHIL # 0.2 10^3/ul (0.0-0.1); BASOPHILS % 1.4 % (0.0-2.0); EOSINOPHILS # 1.1 10^3/ul (0.0-0.5); EOSINOPHILS % 7.8 % (0.0-7.0); HEMATOCRIT 28.1 % (42.0-52.0); HEMOGLOBIN 8.8 g/dl (14.0-18.0); LYMPHOCYTES # 3.2 10^3/ul (0.8-2.9); LYMPHOCYTES % 22.8 % (15.0-51.0); MEAN CORPUSCULAR HEMOGLOBIN 26.9 pg (29.0-33.0); MEAN CORPUSCULAR HGB CONC 31.3 g/dl (32.0-37.0); MEAN CORPUSCULAR VOLUME 85.9 fl (82.0-101.0); MEAN PLATELET VOLUME 9.3 fl (7.4-10.4); MONOCYTE # 1.6 10^3/ul (0.3-0.9); MONOCYTES % 11.6 % (0.0-11.0); NEUTROPHIL # 7.9 10^3/ul (1.6-7.5); NEUTROPHILS % 55.4 % (39.0-77.0); PLATELET COUNT 485 10^3/UL (140-415); POSITIVE DIFF @See below; RED BLOOD COUNT 3.27 10^6/ul (4.70-6.10); RED CELL DISTRIBUTION WIDTH 18.8 % (11.5-14.5)
[2017-11-27 07:51] LABS: ANION GAP 17 (8-16); BLOOD UREA NITROGEN 46 mg/dl (7-20); CALCIUM 8.5 mg/dl (8.4-10.2); CARBON DIOXIDE 28 mmol/L (21-31); CHLORIDE 97 mmol/L (97-110); CREATININE 6.32 mg/dl (0.61-1.24); GLUCOSE 148 mg/dl (70-220); MAGNESIUM 3.1 mg/dl (1.7-2.5); PHOSPHORUS 2.2 mg/dl (2.5-4.9); SODIUM 138 mmol/L (135-144)
[2017-11-27] MEDS: DOCUSATE SODIUM 10 MG/ML (10ML CUP) NGT ×2 (09:09→21:45)
[2017-11-27] MEDS: ZIPRASIDONE 20 MG CAP GTB ×2 (09:09→21:45)
[2017-11-27] MEDS: ASPIRIN 81 MG TAB PO (09:09)
[2017-11-27] MEDS: LANTHANUM 500 MG CHEW PO ×3 (09:09→17:28)
[2017-11-27] MEDS: FERROUS SULFATE 60 MG/ML 5ML CUP NGT (09:09)
[2017-11-27] MEDS: VALPROIC ACID LIQUID CUP 250 MG/5 ML CUP GTB ×3 (09:11→21:45)
[2017-11-27] MEDS: HEPARIN 5,000 UNIT/0.5 ML VIAL SC ×2 (09:13→21:48)
[2017-11-27] MEDS: CEFEPIME 1GM/50 ML (PMX) 50 ML IVPB (20:31)
[2017-11-27] MEDS: INSULIN GLARGINE [LANtus] 3 ML PEN SC (20:32)
[2017-11-27] MEDS: ATORVASTATIN 80 MG TAB PO (21:46)
[2017-11-28] MEDS: INSULIN ASPART [NOVOLOG] 3 ML PEN SC ×4 (00:06→17:41)
[2017-11-28] MEDS: LORAZEPAM 2 MG INJ IV ×3 (01:47→21:27)
[2017-11-28] MEDS: LANSOPRAZOLE 30 MG CAP GTB (06:05)
[2017-11-28 08:48] LABS: ADD MAN DIFF? NO
[2017-11-28 08:51] LABS: WHITE BLOOD COUNT 15.5 10^3/ul (4.8-10.8)
[2017-11-28 08:51] LABS: ABNORMAL IP MESSAGE 1; BASOPHIL # 0.2 10^3/ul (0.0-0.1); EOSINOPHILS # 1.3 10^3/ul (0.0-0.5); EOSINOPHILS % 8.4 % (0.0-7.0); HEMATOCRIT 26.6 % (42.0-52.0); HEMOGLOBIN 8.2 g/dl (14.0-18.0); LYMPHOCYTES # 3.2 10^3/ul (0.8-2.9); LYMPHOCYTES % 20.4 % (15.0-51.0); MEAN CORPUSCULAR HEMOGLOBIN 26.3 pg (29.0-33.0); MEAN CORPUSCULAR HGB CONC 30.8 g/dl (32.0-37.0); MEAN CORPUSCULAR VOLUME 85.3 fl (82.0-101.0); MEAN PLATELET VOLUME 9.1 fl (7.4-10.4); MONOCYTE # 1.8 10^3/ul (0.3-0.9); MONOCYTES % 11.7 % (0.0-11.0); NEUTROPHIL # 8.9 10^3/ul (1.6-7.5); NEUTROPHILS % 57.7 % (39.0-77.0); PLATELET COUNT 455 10^3/UL (140-415); POSITIVE DIFF @See below; RED BLOOD COUNT 3.12 10^6/ul (4.70-6.10); RED CELL DISTRIBUTION WIDTH 18.7 % (11.5-14.5)
[2017-11-28] MEDS: LANTHANUM 500 MG CHEW PO ×3 (08:56→17:43)
[2017-11-28] MEDS: VALPROIC ACID LIQUID CUP 250 MG/5 ML CUP GTB ×3 (08:56→21:28)
[2017-11-28] MEDS: DOCUSATE SODIUM 10 MG/ML (10ML CUP) NGT ×2 (08:57→21:28)
[2017-11-28] MEDS: FERROUS SULFATE 60 MG/ML 5ML CUP NGT (08:57)
[2017-11-28] MEDS: ASPIRIN 81 MG TAB PO (08:57)
[2017-11-28] MEDS: ZIPRASIDONE 20 MG CAP GTB ×2 (08:57→21:28)
[2017-11-28] MEDS: HEPARIN 5,000 UNIT/0.5 ML VIAL SC ×2 (09:05→21:50)
[2017-11-28 09:14] LABS: ANION GAP 18 (8-16); BLOOD UREA NITROGEN 67 mg/dl (7-20); CALCIUM 8.2 mg/dl (8.4-10.2); CARBON DIOXIDE 27 mmol/L (21-31); CHLORIDE 95 mmol/L (97-110); CREATININE 7.42 mg/dl (0.61-1.24); GLUCOSE 141 mg/dl (70-220); MAGNESIUM 3.2 mg/dl (1.7-2.5); POTASSIUM 4.1 mmol/L (3.5-5.1); SODIUM 136 mmol/L (135-144)
[2017-11-28 09:16] LABS: VALPROATE 31 ug/ml (50-100)
[2017-11-28 09:17] LABS: VANCOMYCIN,RANDOM 17.9 ug/ml
[2017-11-28] MEDS: HEPARIN 1000 UNITS/ML 10 ML INJ CATHETER (19:51)
[2017-11-28] MEDS: CEFEPIME 1GM/50 ML (PMX) 50 ML IVPB (19:52)
[2017-11-28] MEDS: EPOETIN 10000 UNITS/1 ML INJ (ESRD) SC (19:54)
[2017-11-28] MEDS: ATORVASTATIN 80 MG TAB PO (21:28)
[2017-11-28] MEDS: INSULIN GLARGINE [LANtus] 3 ML PEN SC (21:33)
[2017-11-28] MEDS: VANCOMYCIN 750 MG in DEXTROSE 5% 150 ML IVPB (21:54)
[2017-11-29] MEDS: INSULIN ASPART [NOVOLOG] 3 ML PEN SC ×4 (00:54→17:22)
[2017-11-29] MEDS: LORAZEPAM 2 MG INJ IV ×4 (01:58→21:01)
[2017-11-29] MEDS: LANSOPRAZOLE 30 MG CAP GTB (05:26)
[2017-11-29] MEDS: LANTHANUM 500 MG CHEW PO ×3 (08:23→17:20)
[2017-11-29] MEDS: FERROUS SULFATE 60 MG/ML 5ML CUP NGT (08:23)
[2017-11-29] MEDS: ZIPRASIDONE 20 MG CAP GTB ×2 (08:24→20:45)
[2017-11-29] MEDS: ASPIRIN 81 MG TAB PO (08:24)
[2017-11-29] MEDS: DOCUSATE SODIUM 10 MG/ML (10ML CUP) NGT ×2 (08:24→20:44)
[2017-11-29] MEDS: VALPROIC ACID LIQUID CUP 250 MG/5 ML CUP GTB ×3 (08:24→20:44)
[2017-11-29] MEDS: HEPARIN 5,000 UNIT/0.5 ML VIAL SC ×2 (08:35→21:03)
[2017-11-29] MEDS: MAGNESIUM HYDROXIDE 30ML CUP PO (12:42)
[2017-11-29] MEDS: ATORVASTATIN 80 MG TAB PO (20:45)
[2017-11-29] MEDS: INSULIN GLARGINE [LANtus] 3 ML PEN SC (20:49)
[2017-11-30] MEDS: INSULIN ASPART [NOVOLOG] 3 ML PEN SC ×4 (01:37→18:55)
[2017-11-30] MEDS: LANSOPRAZOLE 30 MG CAP GTB (06:22)
[2017-11-30] MEDS: LORAZEPAM 2 MG INJ IV ×4 (06:24→21:22)
[2017-11-30] MEDS: VALPROIC ACID LIQUID CUP 250 MG/5 ML CUP GTB ×3 (08:42→20:45)
[2017-11-30] MEDS: LANTHANUM 500 MG CHEW PO ×3 (08:42→18:54)
[2017-11-30] MEDS: FERROUS SULFATE 60 MG/ML 5ML CUP NGT (08:42)
[2017-11-30] MEDS: DOCUSATE SODIUM 10 MG/ML (10ML CUP) NGT ×2 (08:42→20:45)
[2017-11-30] MEDS: ASPIRIN 81 MG TAB PO (08:43)
[2017-11-30] MEDS: ZIPRASIDONE 20 MG CAP GTB ×2 (08:43→20:46)
[2017-11-30] MEDS: HEPARIN 5,000 UNIT/0.5 ML VIAL SC (08:45)
[2017-11-30 11:34] LABS: ADD MAN DIFF? NO
[2017-11-30 11:36] LABS: WHITE BLOOD COUNT 14.4 10^3/ul (4.8-10.8)
[2017-11-30 11:36] LABS: ABNORMAL IP MESSAGE 1; BASOPHIL # 0.2 10^3/ul (0.0-0.1); BASOPHILS % 1.1 % (0.0-2.0); EOSINOPHILS # 1.1 10^3/ul (0.0-0.5); EOSINOPHILS % 7.7 % (0.0-7.0); HEMATOCRIT 25.9 % (42.0-52.0); HEMOGLOBIN 8.1 g/dl (14.0-18.0); LYMPHOCYTES # 3.1 10^3/ul (0.8-2.9); LYMPHOCYTES % 21.3 % (15.0-51.0); MEAN CORPUSCULAR HEMOGLOBIN 26.9 pg (29.0-33.0); MEAN CORPUSCULAR HGB CONC 31.3 g/dl (32.0-37.0); MEAN PLATELET VOLUME 9.1 fl (7.4-10.4); MONOCYTE # 1.9 10^3/ul (0.3-0.9); MONOCYTES % 13.5 % (0.0-11.0); NEUTROPHILS % 55.5 % (39.0-77.0); PLATELET COUNT 488 10^3/UL (140-415); POSITIVE DIFF @See below; RED BLOOD COUNT 3.01 10^6/ul (4.70-6.10); RED CELL DISTRIBUTION WIDTH 19.2 % (11.5-14.5)
[2017-11-30 11:54] LABS: ALBUMIN 3.4 g/dl (3.3-4.9); ANION GAP 17 (8-16); BLOOD UREA NITROGEN 66 mg/dl (7-20); CALCIUM 8.5 mg/dl (8.4-10.2); CARBON DIOXIDE 29 mmol/L (21-31); CHLORIDE 98 mmol/L (97-110); CREATININE 6.94 mg/dl (0.61-1.24); GLUCOSE 150 mg/dl (70-220); MAGNESIUM 3.5 mg/dl (1.7-2.5); PHOSPHORUS 1.3 mg/dl (2.5-4.9); POTASSIUM 3.9 mmol/L (3.5-5.1); SODIUM 140 mmol/L (135-144)
[2017-11-30 12:08] LABS: INR 0.93; PROTIME 12.5 Sec (11.9-14.9)
[2017-11-30 18:50] LABS: HEMATOCRIT 26.1 % (42.0-52.0); HEMOGLOBIN 8.1 g/dl (14.0-18.0)
[2017-11-30] MEDS: PANTOPRAZOLE 40 MG INJ IV (18:54)
[2017-11-30] MEDS: ATORVASTATIN 80 MG TAB PO (20:46)
[2017-11-30] MEDS: EPOETIN 10000 UNITS/1 ML INJ (ESRD) SC (20:48)
[2017-11-30] MEDS: INSULIN GLARGINE [LANtus] 3 ML PEN SC (21:07)
[2017-12-01] MEDS: INSULIN ASPART [NOVOLOG] 3 ML PEN SC ×4 (00:04→17:19)
[2017-12-01 01:00] LABS: HEMATOCRIT 24.2 % (42.0-52.0); HEMOGLOBIN 7.6 g/dl (14.0-18.0)
[2017-12-01 04:12] LABS: TROPONIN-I 0.094 ng/ml (0.00-0.12)
[2017-12-01] MEDS: PANTOPRAZOLE 40 MG INJ IV ×2 (05:21→17:15)
[2017-12-01] MEDS: VALPROIC ACID LIQUID CUP 250 MG/5 ML CUP GTB ×3 (09:00→20:31)
[2017-12-01] MEDS: ASPIRIN 81 MG TAB PO (09:01)
[2017-12-01] MEDS: FERROUS SULFATE 60 MG/ML 5ML CUP NGT (09:01)
[2017-12-01] MEDS: DOCUSATE SODIUM 10 MG/ML (10ML CUP) NGT ×2 (09:02→20:32)
[2017-12-01] MEDS: ZIPRASIDONE 20 MG CAP GTB ×2 (09:02→20:32)
[2017-12-01] MEDS: hydrALAzine 20 MG INJ IV (09:02)
[2017-12-01] MEDS: LANTHANUM 500 MG CHEW PO ×3 (09:02→17:15)
[2017-12-01] MEDS: LORAZEPAM 2 MG INJ IV (09:06)
[2017-12-01 09:10] LABS: ADD MAN DIFF? NO
[2017-12-01 09:16] LABS: WHITE BLOOD COUNT 15.1 10^3/ul (4.8-10.8)
[2017-12-01 09:16] LABS: ABNORMAL IP MESSAGE 1; BASOPHIL # 0.2 10^3/ul (0.0-0.1); BASOPHILS % 1.5 % (0.0-2.0); EOSINOPHILS # 1.2 10^3/ul (0.0-0.5); EOSINOPHILS % 8.1 % (0.0-7.0); HEMATOCRIT 29.2 % (42.0-52.0); HEMOGLOBIN 9.1 g/dl (14.0-18.0); LYMPHOCYTES # 3.6 10^3/ul (0.8-2.9); LYMPHOCYTES % 24.1 % (15.0-51.0); MEAN CORPUSCULAR HGB CONC 31.2 g/dl (32.0-37.0); MEAN CORPUSCULAR VOLUME 86.6 fl (82.0-101.0); MONOCYTES % 13.4 % (0.0-11.0); NEUTROPHIL # 7.9 10^3/ul (1.6-7.5); POSITIVE DIFF @See below; RED BLOOD COUNT 3.37 10^6/ul (4.70-6.10); RED CELL DISTRIBUTION WIDTH 19.4 % (11.5-14.5)
[2017-12-01 09:24] LABS: PLATELET COUNT 616 10^3/UL (140-415)
[2017-12-01 09:32] LABS: ALBUMIN 3.8 g/dl (3.3-4.9); ANION GAP 18 (8-16); BLOOD UREA NITROGEN 42 mg/dl (7-20); CALCIUM 8.8 mg/dl (8.4-10.2); CARBON DIOXIDE 27 mmol/L (21-31); CHLORIDE 102 mmol/L (97-110); GLUCOSE 180 mg/dl (70-220); PHOSPHORUS 1.5 mg/dl (2.5-4.9); POTASSIUM 4.2 mmol/L (3.5-5.1); SODIUM 143 mmol/L (135-144)
[2017-12-01 09:44] LABS: TROPONIN-I 0.092 ng/ml (0.00-0.12)
[2017-12-01 12:25] LABS: HEMATOCRIT 25.3 % (42.0-52.0); HEMOGLOBIN 7.7 g/dl (14.0-18.0)
[2017-12-01] MEDS: BISACODYL (EC) 5 MG TAB PO (13:30)
[2017-12-01] MEDS: POLYETHYLENE GLYCOL 3350 119 GM POWDER PO (18:03)
[2017-12-01] MEDS: INSULIN GLARGINE [LANtus] 3 ML PEN SC ×2 (20:00→20:22)
[2017-12-01] MEDS: MAGNESIUM CITRATE 300 ML BTL PO (20:24)
[2017-12-01] MEDS: ATORVASTATIN 80 MG TAB PO (20:32)
[2017-12-02] MEDS: LORAZEPAM 2 MG INJ IV ×2 (00:06→12:52)
[2017-12-02] MEDS: INSULIN ASPART [NOVOLOG] 3 ML PEN SC ×5 (00:39→23:21)
[2017-12-02] MEDS: PANTOPRAZOLE 40 MG INJ IV ×2 (06:07→17:27)
[2017-12-02 06:19] LABS: ADD MAN DIFF? NO
[2017-12-02 06:30] LABS: ABNORMAL IP MESSAGE 1; BASOPHIL # 0.2 10^3/ul (0.0-0.1); BASOPHILS % 1.4 % (0.0-2.0); EOSINOPHILS % 6.3 % (0.0-7.0); HEMATOCRIT 27.4 % (42.0-52.0); HEMOGLOBIN 8.6 g/dl (14.0-18.0); LYMPHOCYTES # 3.1 10^3/ul (0.8-2.9); MEAN CORPUSCULAR HEMOGLOBIN 26.6 pg (29.0-33.0); MEAN CORPUSCULAR HGB CONC 31.4 g/dl (32.0-37.0); MEAN CORPUSCULAR VOLUME 84.8 fl (82.0-101.0); MEAN PLATELET VOLUME 8.7 fl (7.4-10.4); MONOCYTE # 2.1 10^3/ul (0.3-0.9); MONOCYTES % 12.6 % (0.0-11.0); NEUTROPHIL # 9.8 10^3/ul (1.6-7.5); NEUTROPHILS % 60.1 % (39.0-77.0); PLATELET COUNT 530 10^3/UL (140-415); POSITIVE DIFF @See below; RED BLOOD COUNT 3.23 10^6/ul (4.70-6.10); RED CELL DISTRIBUTION WIDTH 19.3 % (11.5-14.5)
[2017-12-02 06:30] LABS: WHITE BLOOD COUNT 16.3 10^3/ul (4.8-10.8)
[2017-12-02] MEDS: POLYETHYLENE GLYCOL 3350 119 GM POWDER PO (06:36)
[2017-12-02 07:05] LABS: ALBUMIN 3.5 g/dl (3.3-4.9); ANION GAP 19 (8-16); BLOOD UREA NITROGEN 63 mg/dl (7-20); CALCIUM 8.6 mg/dl (8.4-10.2); CARBON DIOXIDE 26 mmol/L (21-31); CHLORIDE 102 mmol/L (97-110); CREATININE 5.85 mg/dl (0.61-1.24); GLUCOSE 124 mg/dl (70-220); MAGNESIUM 3.4 mg/dl (1.7-2.5); PHOSPHORUS 1.6 mg/dl (2.5-4.9); POTASSIUM 4.5 mmol/L (3.5-5.1); SODIUM 142 mmol/L (135-144)
[2017-12-02] MEDS: LANTHANUM 500 MG CHEW PO ×3 (07:55→17:29)
[2017-12-02] MEDS: VALPROIC ACID LIQUID CUP 250 MG/5 ML CUP GTB ×3 (08:54→20:41)
[2017-12-02] MEDS: FERROUS SULFATE 60 MG/ML 5ML CUP NGT (08:54)
[2017-12-02] MEDS: ZIPRASIDONE 20 MG CAP GTB ×2 (08:54→20:42)
[2017-12-02] MEDS: BISACODYL (EC) 5 MG TAB PO (08:54)
[2017-12-02] MEDS: DOCUSATE SODIUM 10 MG/ML (10ML CUP) NGT ×2 (08:54→20:41)
[2017-12-02] MEDS: ASPIRIN 81 MG TAB PO (08:55)
[2017-12-02] MEDS ORDERED: ROCURONIUM 50 MG INJ (09:06)
[2017-12-02] MEDS: LACTULOSE 30ML CUP GTB ×4 (09:36→20:41)
[2017-12-02] MEDS: NEUTRA-PHOS 250 MG PACKET GTB ×2 (09:38→21:00)
[2017-12-02] MEDS: MINERAL OIL 133 ML ENEMA PR ×3 (10:58→14:00)
[2017-12-02] MEDS: BALSAM PERU/CASTOR OIL 60 GM TUBE TOP (12:51)
[2017-12-02] MEDS: morphine 2 MG INJ IV (15:07)
[2017-12-02] MEDS: EPOETIN 10000 UNITS/1 ML INJ (ESRD) SC (17:29)
[2017-12-02] MEDS: HEPARIN 1000 UNITS/ML 10 ML INJ CATHETER (19:02)
[2017-12-02] MEDS: ATORVASTATIN 80 MG TAB PO (20:42)
[2017-12-02] MEDS: INSULIN GLARGINE [LANtus] 3 ML PEN SC (20:48)
[2017-12-02] MEDS ORDERED: LATANOPROST 0.005% 2.5 ML OPH BOTH EYES (21:00)
[2017-12-03] MEDS: LACTULOSE 30ML CUP GTB ×7 (01:45→20:29)
[2017-12-03] MEDS: LORAZEPAM 2 MG INJ IV ×4 (03:59→23:57)
[2017-12-03] MEDS: PANTOPRAZOLE 40 MG INJ IV ×2 (05:07→17:50)
[2017-12-03] MEDS: INSULIN ASPART [NOVOLOG] 3 ML PEN SC ×4 (05:13→23:50)
[2017-12-03 07:25] LABS: ADD MAN DIFF? NO
[2017-12-03 07:32] LABS: WHITE BLOOD COUNT 12.4 10^3/ul (4.8-10.8)
[2017-12-03 07:32] LABS: BASOPHIL # 0.2 10^3/ul (0.0-0.1); BASOPHILS % 1.3 % (0.0-2.0); EOSINOPHILS # 0.8 10^3/ul (0.0-0.5); EOSINOPHILS % 6.8 % (0.0-7.0); HEMATOCRIT 27.4 % (42.0-52.0); HEMOGLOBIN 8.3 g/dl (14.0-18.0); LYMPHOCYTES % 24.1 % (15.0-51.0); MEAN CORPUSCULAR HEMOGLOBIN 26.1 pg (29.0-33.0); MEAN CORPUSCULAR HGB CONC 30.3 g/dl (32.0-37.0); MEAN CORPUSCULAR VOLUME 86.2 fl (82.0-101.0); MEAN PLATELET VOLUME 8.9 fl (7.4-10.4); MONOCYTE # 1.5 10^3/ul (0.3-0.9); MONOCYTES % 11.7 % (0.0-11.0); NEUTROPHIL # 6.9 10^3/ul (1.6-7.5); NEUTROPHILS % 55.3 % (39.0-77.0); PLATELET COUNT 494 10^3/UL (140-415); RED BLOOD COUNT 3.18 10^6/ul (4.70-6.10); RED CELL DISTRIBUTION WIDTH 19.6 % (11.5-14.5)
[2017-12-03 07:51] LABS: ALBUMIN 3.4 g/dl (3.3-4.9); ANION GAP 14 (8-16); BLOOD UREA NITROGEN 41 mg/dl (7-20); CALCIUM 8.3 mg/dl (8.4-10.2); CARBON DIOXIDE 31 mmol/L (21-31); CHLORIDE 99 mmol/L (97-110); GLUCOSE 178 mg/dl (70-220); MAGNESIUM 3.2 mg/dl (1.7-2.5); PHOSPHORUS 1.8 mg/dl (2.5-4.9); POTASSIUM 3.8 mmol/L (3.5-5.1); SODIUM 140 mmol/L (135-144)
[2017-12-03] MEDS: VALPROIC ACID LIQUID CUP 250 MG/5 ML CUP GTB ×3 (08:43→20:29)
[2017-12-03] MEDS: LANTHANUM 500 MG CHEW PO ×3 (08:43→21:42)
[2017-12-03] MEDS: FERROUS SULFATE 60 MG/ML 5ML CUP NGT (08:43)
[2017-12-03] MEDS: DOCUSATE SODIUM 10 MG/ML (10ML CUP) NGT ×2 (08:43→20:29)
[2017-12-03] MEDS: NEUTRA-PHOS 250 MG PACKET GTB ×2 (08:44→20:29)
[2017-12-03] MEDS: LISINOPRIL 5 MG TAB PO (08:44)
[2017-12-03] MEDS: ZIPRASIDONE 20 MG CAP GTB ×2 (08:44→20:30)
[2017-12-03] MEDS: ASPIRIN 81 MG TAB PO (08:45)
[2017-12-03] MEDS: BALSAM PERU/CASTOR OIL 60 GM TUBE TOP (08:46)
[2017-12-03] MEDS: ATORVASTATIN 80 MG TAB PO (20:29)
[2017-12-03] MEDS ORDERED: HYDROCODONE/APAP (5/325) TAB PO (20:30)
[2017-12-03] MEDS ORDERED: ONDANSETRON 4 MG INJ IV (20:30)
[2017-12-03] MEDS: INSULIN GLARGINE [LANtus] 3 ML PEN SC (20:42)
[2017-12-04] MEDS: LACTULOSE 30ML CUP GTB ×6 (00:37→22:19)
[2017-12-04] MEDS: PANTOPRAZOLE 40 MG INJ IV ×2 (05:08→18:18)
[2017-12-04] MEDS: INSULIN ASPART [NOVOLOG] 3 ML PEN SC ×4 (05:11→22:29)
[2017-12-04] MEDS: LORAZEPAM 2 MG INJ IV ×4 (05:49→20:30)
[2017-12-04 07:08] LABS: ADD MAN DIFF? NO
[2017-12-04 07:13] LABS: WHITE BLOOD COUNT 11.6 10^3/ul (4.8-10.8)
[2017-12-04 07:13] LABS: BASOPHIL # 0.2 10^3/ul (0.0-0.1); BASOPHILS % 1.6 % (0.0-2.0); EOSINOPHILS # 0.9 10^3/ul (0.0-0.5); EOSINOPHILS % 7.3 % (0.0-7.0); HEMATOCRIT 27.4 % (42.0-52.0); HEMOGLOBIN 8.4 g/dl (14.0-18.0); LYMPHOCYTES # 3.2 10^3/ul (0.8-2.9); LYMPHOCYTES % 27.8 % (15.0-51.0); MEAN CORPUSCULAR HEMOGLOBIN 26.5 pg (29.0-33.0); MEAN CORPUSCULAR HGB CONC 30.7 g/dl (32.0-37.0); MEAN CORPUSCULAR VOLUME 86.4 fl (82.0-101.0); MEAN PLATELET VOLUME 9.2 fl (7.4-10.4); MONOCYTE # 1.2 10^3/ul (0.3-0.9); MONOCYTES % 10.5 % (0.0-11.0); PLATELET COUNT 476 10^3/UL (140-415); RED BLOOD COUNT 3.17 10^6/ul (4.70-6.10); RED CELL DISTRIBUTION WIDTH 19.4 % (11.5-14.5)
[2017-12-04 07:29] LABS: ALBUMIN 3.5 g/dl (3.3-4.9); ANION GAP 18 (8-16); BLOOD UREA NITROGEN 58 mg/dl (7-20); CALCIUM 8.7 mg/dl (8.4-10.2); CARBON DIOXIDE 29 mmol/L (21-31); CHLORIDE 102 mmol/L (97-110); CREATININE 6.15 mg/dl (0.61-1.24); GLUCOSE 127 mg/dl (70-220); MAGNESIUM 3.5 mg/dl (1.7-2.5); PHOSPHORUS 2.8 mg/dl (2.5-4.9); POTASSIUM 3.5 mmol/L (3.5-5.1); SODIUM 145 mmol/L (135-144)
[2017-12-04] MEDS: ASPIRIN 81 MG TAB PO (08:46)
[2017-12-04] MEDS: ZIPRASIDONE 20 MG CAP GTB ×2 (08:46→22:20)
[2017-12-04] MEDS: morphine 2 MG INJ IV ×2 (08:48→13:20)
[2017-12-04] MEDS: FERROUS SULFATE 60 MG/ML 5ML CUP NGT (08:49)
[2017-12-04] MEDS: NEUTRA-PHOS 250 MG PACKET GTB ×2 (08:49→22:20)
[2017-12-04] MEDS: LANTHANUM 500 MG CHEW PO ×3 (08:49→18:18)
[2017-12-04] MEDS: LISINOPRIL 5 MG TAB PO (08:50)
[2017-12-04] MEDS: VALPROIC ACID LIQUID CUP 250 MG/5 ML CUP GTB ×3 (08:56→22:19)
[2017-12-04] MEDS: DOCUSATE SODIUM 10 MG/ML (10ML CUP) NGT ×2 (08:56→21:00)
[2017-12-04] MEDS: BALSAM PERU/CASTOR OIL 60 GM TUBE TOP (10:46)
[2017-12-04] MEDS: hydrALAzine 20 MG INJ IV (22:28)
[2017-12-04] MEDS: ATORVASTATIN 80 MG TAB PO (22:28)
[2017-12-04] MEDS: INSULIN GLARGINE [LANtus] 3 ML PEN SC (22:30)
[2017-12-05] MEDS: LACTULOSE 30ML CUP GTB ×6 (00:51→21:00)
[2017-12-05] MEDS: LORAZEPAM 2 MG INJ IV ×4 (00:51→15:15)
[2017-12-05] MEDS: morphine 2 MG INJ IV (04:48)
[2017-12-05] MEDS: PANTOPRAZOLE 40 MG INJ IV ×2 (05:00→17:22)
[2017-12-05 06:17] LABS: ADD MAN DIFF? NO
[2017-12-05 06:30] LABS: WHITE BLOOD COUNT 12.2 10^3/ul (4.8-10.8)
[2017-12-05 06:30] LABS: BASOPHIL # 0.2 10^3/ul (0.0-0.1); BASOPHILS % 1.6 % (0.0-2.0); EOSINOPHILS # 1.1 10^3/ul (0.0-0.5); EOSINOPHILS % 8.7 % (0.0-7.0); HEMATOCRIT 28.6 % (42.0-52.0); HEMOGLOBIN 8.7 g/dl (14.0-18.0); LYMPHOCYTES # 3.2 10^3/ul (0.8-2.9); LYMPHOCYTES % 26.1 % (15.0-51.0); MEAN CORPUSCULAR HEMOGLOBIN 26.3 pg (29.0-33.0); MEAN CORPUSCULAR HGB CONC 30.4 g/dl (32.0-37.0); MEAN CORPUSCULAR VOLUME 86.4 fl (82.0-101.0); MEAN PLATELET VOLUME 9.2 fl (7.4-10.4); MONOCYTE # 1.3 10^3/ul (0.3-0.9); MONOCYTES % 10.7 % (0.0-11.0); NEUTROPHIL # 6.4 10^3/ul (1.6-7.5); NEUTROPHILS % 52.2 % (39.0-77.0); PLATELET COUNT 506 10^3/UL (140-415); RED BLOOD COUNT 3.31 10^6/ul (4.70-6.10); RED CELL DISTRIBUTION WIDTH 19.4 % (11.5-14.5)
[2017-12-05 07:00] LABS: ALBUMIN 3.6 g/dl (3.3-4.9); ANION GAP 18 (8-16); BLOOD UREA NITROGEN 67 mg/dl (7-20); CARBON DIOXIDE 29 mmol/L (21-31); CHLORIDE 102 mmol/L (97-110); CREATININE 7.83 mg/dl (0.61-1.24); GLUCOSE 171 mg/dl (70-220); MAGNESIUM 3.7 mg/dl (1.7-2.5); PHOSPHORUS 3.9 mg/dl (2.5-4.9); POTASSIUM 3.6 mmol/L (3.5-5.1); SODIUM 145 mmol/L (135-144)
[2017-12-05 07:46] LABS: CALCIUM 8.7 mg/dl (8.4-10.2)
[2017-12-05] MEDS: INSULIN ASPART [NOVOLOG] 3 ML PEN SC ×4 (08:11→21:23)
[2017-12-05] MEDS: FERROUS SULFATE 60 MG/ML 5ML CUP NGT (09:22)
[2017-12-05] MEDS: VALPROIC ACID LIQUID CUP 250 MG/5 ML CUP GTB ×3 (09:22→21:07)
[2017-12-05] MEDS: ASPIRIN 81 MG TAB PO (09:23)
[2017-12-05] MEDS: DOCUSATE SODIUM 10 MG/ML (10ML CUP) NGT ×2 (09:23→21:00)
[2017-12-05] MEDS: LANTHANUM 500 MG CHEW PO ×3 (09:29→17:22)
[2017-12-05] MEDS: ZIPRASIDONE 20 MG CAP GTB ×2 (09:30→21:06)
[2017-12-05] MEDS: NEUTRA-PHOS 250 MG PACKET GTB ×2 (09:30→21:06)
[2017-12-05] MEDS: LISINOPRIL 5 MG TAB PO (09:31)
[2017-12-05] MEDS: BALSAM PERU/CASTOR OIL 60 GM TUBE TOP (09:32)
[2017-12-05] MEDS ORDERED: morphine LIQ (10 MG/5 ML) CUP GTB (17:00)
[2017-12-05] MEDS: EPOETIN 10000 UNITS/1 ML INJ (ESRD) SC (17:44)
[2017-12-05] MEDS: ATORVASTATIN 80 MG TAB PO (21:00)
[2017-12-05] MEDS: INSULIN GLARGINE [LANtus] 3 ML PEN SC (21:23)
[2017-12-06] MEDS: LACTULOSE 30ML CUP GTB ×4 (01:14→12:31)
[2017-12-06] MEDS: PANTOPRAZOLE 40 MG INJ IV ×2 (05:08→17:19)
[2017-12-06] MEDS: INSULIN ASPART [NOVOLOG] 3 ML PEN SC ×4 (05:23→23:23)
[2017-12-06] MEDS: LORAZEPAM 2 MG INJ IV (09:16)
[2017-12-06] MEDS: LANTHANUM 500 MG CHEW PO ×3 (09:16→17:19)
[2017-12-06] MEDS: ASPIRIN 81 MG TAB PO (09:17)
[2017-12-06] MEDS: ZIPRASIDONE 20 MG CAP GTB ×2 (09:17→21:00)
[2017-12-06] MEDS: LISINOPRIL 5 MG TAB PO (09:18)
[2017-12-06] MEDS: NEUTRA-PHOS 250 MG PACKET GTB ×2 (09:19→20:10)
[2017-12-06] MEDS: DOCUSATE SODIUM 10 MG/ML (10ML CUP) NGT ×2 (09:19→20:09)
[2017-12-06] MEDS: VALPROIC ACID LIQUID CUP 250 MG/5 ML CUP GTB ×3 (09:20→20:10)
[2017-12-06] MEDS: FERROUS SULFATE 60 MG/ML 5ML CUP NGT (09:20)
[2017-12-06] MEDS: BALSAM PERU/CASTOR OIL 60 GM TUBE TOP (09:23)
[2017-12-06 13:35] LABS: VALPROATE 57 ug/ml (50-100)
[2017-12-06] MEDS: QUETIAPINE 100 MG TAB GTB ×2 (17:19→20:10)
[2017-12-06] MEDS: LORAZEPAM 1 MG TAB PO ×2 (17:30→23:30)
[2017-12-06] MEDS: ATORVASTATIN 80 MG TAB PO (20:10)
[2017-12-06] MEDS: INSULIN GLARGINE [LANtus] 3 ML PEN SC (20:13)
[2017-12-06] MEDS ORDERED: LACTULOSE 30ML CUP GTB (21:00)
[2017-12-07] MEDS: LORAZEPAM 1 MG TAB PO ×2 (05:30→11:16)
[2017-12-07] MEDS: PANTOPRAZOLE 40 MG INJ IV ×2 (05:45→18:14)
[2017-12-07] MEDS: INSULIN ASPART [NOVOLOG] 3 ML PEN SC ×4 (06:20→23:20)
[2017-12-07] MEDS: FERROUS SULFATE 60 MG/ML 5ML CUP NGT (08:46)
[2017-12-07] MEDS: VALPROIC ACID LIQUID CUP 250 MG/5 ML CUP GTB ×3 (08:46→20:56)
[2017-12-07] MEDS: ASPIRIN 81 MG TAB PO (08:47)
[2017-12-07] MEDS: QUETIAPINE 100 MG TAB GTB ×2 (08:47→20:58)
[2017-12-07] MEDS: LANTHANUM 500 MG CHEW PO ×3 (08:47→18:15)
[2017-12-07] MEDS: NEUTRA-PHOS 250 MG PACKET GTB ×2 (08:47→20:57)
[2017-12-07] MEDS: LISINOPRIL 5 MG TAB PO (08:48)
[2017-12-07] MEDS: DOCUSATE SODIUM 10 MG/ML (10ML CUP) NGT ×2 (08:48→20:56)
[2017-12-07] MEDS: ZIPRASIDONE 20 MG CAP GTB ×2 (09:00→20:55)
[2017-12-07 09:02] LABS: ADD MAN DIFF? NO
[2017-12-07] MEDS: BALSAM PERU/CASTOR OIL 60 GM TUBE TOP (09:02)
[2017-12-07 09:08] LABS: ABNORMAL IP MESSAGE 1; BASOPHIL # 0.2 10^3/ul (0.0-0.1); BASOPHILS % 0.9 % (0.0-2.0); EOSINOPHILS # 0.4 10^3/ul (0.0-0.5); EOSINOPHILS % 2.7 % (0.0-7.0); HEMATOCRIT 29.7 % (42.0-52.0); LYMPHOCYTES % 25.2 % (15.0-51.0); MEAN CORPUSCULAR HEMOGLOBIN 26.2 pg (29.0-33.0); MEAN CORPUSCULAR HGB CONC 30.3 g/dl (32.0-37.0); MEAN CORPUSCULAR VOLUME 86.3 fl (82.0-101.0); MEAN PLATELET VOLUME 9.6 fl (7.4-10.4); MONOCYTE # 2.4 10^3/ul (0.3-0.9); MONOCYTES % 14.9 % (0.0-11.0); NEUTROPHIL # 8.9 10^3/ul (1.6-7.5); NEUTROPHILS % 55.6 % (39.0-77.0); PLATELET COUNT 439 10^3/UL (140-415); POSITIVE DIFF @See below; RED BLOOD COUNT 3.44 10^6/ul (4.70-6.10); RED CELL DISTRIBUTION WIDTH 19.3 % (11.5-14.5)
[2017-12-07 09:08] LABS: WHITE BLOOD COUNT 16.1 10^3/ul (4.8-10.8)
[2017-12-07 09:31] LABS: ANION GAP 21 (8-16); BLOOD UREA NITROGEN 71 mg/dl (7-20); CALCIUM 8.8 mg/dl (8.4-10.2); CARBON DIOXIDE 26 mmol/L (21-31); CHLORIDE 102 mmol/L (97-110); CREATININE 7.43 mg/dl (0.61-1.24); GLUCOSE 165 mg/dl (70-220); MAGNESIUM 3.3 mg/dl (1.7-2.5); PHOSPHORUS 3.9 mg/dl (2.5-4.9); SODIUM 145 mmol/L (135-144)
[2017-12-07] MEDS: ALBUMIN HUMAN 25% 50 ML IV (12:30)
[2017-12-07] MEDS: HEPARIN 1000 UNITS/ML 10 ML INJ CATHETER (16:35)
[2017-12-07] MEDS: EPOETIN 10000 UNITS/1 ML INJ (ESRD) SC (18:16)
[2017-12-07] MEDS: INSULIN GLARGINE [LANtus] 3 ML PEN SC (20:54)
[2017-12-07] MEDS: ATORVASTATIN 80 MG TAB PO (20:57)
[2017-12-08] MEDS: ALPRAZOLAM 0.5 MG TAB GTB (02:24)
[2017-12-08] MEDS: LORAZEPAM 2 MG INJ IV (04:19)
[2017-12-08] MEDS: PANTOPRAZOLE 40 MG INJ IV ×2 (05:38→17:21)
[2017-12-08] MEDS: INSULIN ASPART [NOVOLOG] 3 ML PEN SC ×3 (05:43→17:23)
[2017-12-08] MEDS: FERROUS SULFATE 60 MG/ML 5ML CUP NGT (08:36)
[2017-12-08] MEDS: NEUTRA-PHOS 250 MG PACKET GTB ×2 (08:36→20:21)
[2017-12-08] MEDS: VALPROIC ACID LIQUID CUP 250 MG/5 ML CUP GTB ×3 (08:36→20:21)
[2017-12-08] MEDS: ZIPRASIDONE 20 MG CAP GTB (08:36)
[2017-12-08] MEDS: QUETIAPINE 100 MG TAB GTB ×2 (08:37→20:20)
[2017-12-08] MEDS: DOCUSATE SODIUM 10 MG/ML (10ML CUP) NGT ×2 (08:37→20:21)
[2017-12-08] MEDS: ASPIRIN 81 MG TAB PO (08:37)
[2017-12-08] MEDS: LANTHANUM 500 MG CHEW PO ×3 (08:37→17:21)
[2017-12-08] MEDS: BALSAM PERU/CASTOR OIL 60 GM TUBE TOP (08:38)
[2017-12-08] MEDS: LISINOPRIL 5 MG TAB PO (08:38)
[2017-12-08] MEDS: ATORVASTATIN 80 MG TAB PO (20:20)
[2017-12-08] MEDS: INSULIN GLARGINE [LANtus] 3 ML PEN SC (21:11)
[2017-12-09] MEDS: INSULIN ASPART [NOVOLOG] 3 ML PEN SC ×4 (01:23→17:38)
[2017-12-09] MEDS: LORAZEPAM 2 MG INJ IV ×3 (04:05→17:26)
[2017-12-09] MEDS: PANTOPRAZOLE 40 MG INJ IV ×2 (05:29→17:26)
[2017-12-09] MEDS: ASPIRIN 81 MG TAB PO (09:25)
[2017-12-09] MEDS: QUETIAPINE 100 MG TAB GTB ×2 (09:25→20:42)
[2017-12-09] MEDS: LANTHANUM 500 MG CHEW PO ×3 (09:25→17:26)
[2017-12-09] MEDS: NEUTRA-PHOS 250 MG PACKET GTB ×2 (09:26→20:42)
[2017-12-09] MEDS: VALPROIC ACID LIQUID CUP 250 MG/5 ML CUP GTB ×3 (09:26→20:42)
[2017-12-09] MEDS: DOCUSATE SODIUM 10 MG/ML (10ML CUP) NGT ×2 (09:26→20:42)
[2017-12-09] MEDS: FERROUS SULFATE 60 MG/ML 5ML CUP NGT (09:26)
[2017-12-09] MEDS: LISINOPRIL 5 MG TAB PO (09:27)
[2017-12-09] MEDS: BALSAM PERU/CASTOR OIL 60 GM TUBE TOP (09:27)
[2017-12-09] MEDS: EPOETIN 10000 UNITS/1 ML INJ (ESRD) SC (17:27)
[2017-12-09] MEDS: ATORVASTATIN 80 MG TAB PO (20:42)
[2017-12-09] MEDS: INSULIN GLARGINE [LANtus] 3 ML PEN SC (22:47)
[2017-12-10] MEDS: INSULIN ASPART [NOVOLOG] 3 ML PEN SC ×5 (00:46→23:53)
[2017-12-10] MEDS: LORAZEPAM 2 MG INJ IV ×4 (06:23→21:32)
[2017-12-10] MEDS: PANTOPRAZOLE 40 MG INJ IV ×2 (06:24→17:10)
[2017-12-10] MEDS: LANTHANUM 500 MG CHEW PO ×3 (09:06→17:11)
[2017-12-10] MEDS: VALPROIC ACID LIQUID CUP 250 MG/5 ML CUP GTB ×3 (09:06→21:33)
[2017-12-10] MEDS: DOCUSATE SODIUM 10 MG/ML (10ML CUP) NGT ×2 (09:06→21:33)
[2017-12-10] MEDS: ASPIRIN 81 MG TAB PO (09:07)
[2017-12-10] MEDS: QUETIAPINE 100 MG TAB GTB ×2 (09:07→21:33)
[2017-12-10] MEDS: NEUTRA-PHOS 250 MG PACKET GTB ×2 (09:07→21:37)
[2017-12-10] MEDS: LISINOPRIL 5 MG TAB PO (09:07)
[2017-12-10] MEDS: FERROUS SULFATE 60 MG/ML 5ML CUP NGT (09:07)
[2017-12-10] MEDS: BALSAM PERU/CASTOR OIL 60 GM TUBE TOP (09:08)
[2017-12-10] MEDS: INSULIN GLARGINE [LANtus] 3 ML PEN SC (20:31)
[2017-12-10] MEDS: ATORVASTATIN 80 MG TAB PO (21:33)
[2017-12-11] MEDS: LORAZEPAM 2 MG INJ IV ×4 (03:05→18:22)
[2017-12-11] MEDS: INSULIN ASPART [NOVOLOG] 3 ML PEN SC ×3 (06:07→17:18)
[2017-12-11 07:01] LABS: ADD MAN DIFF? NO
[2017-12-11 07:06] LABS: WHITE BLOOD COUNT 10.7 10^3/ul (4.8-10.8)
[2017-12-11 07:06] LABS: BASOPHIL # 0.1 10^3/ul (0.0-0.1); BASOPHILS % 1.1 % (0.0-2.0); EOSINOPHILS % 9.3 % (0.0-7.0); HEMATOCRIT 29.1 % (42.0-52.0); HEMOGLOBIN 9.1 g/dl (14.0-18.0); LYMPHOCYTES # 3.4 10^3/ul (0.8-2.9); LYMPHOCYTES % 32.1 % (15.0-51.0); MEAN CORPUSCULAR HEMOGLOBIN 26.2 pg (29.0-33.0); MEAN CORPUSCULAR HGB CONC 31.3 g/dl (32.0-37.0); MEAN CORPUSCULAR VOLUME 83.9 fl (82.0-101.0); MEAN PLATELET VOLUME 9.4 fl (7.4-10.4); MONOCYTE # 0.8 10^3/ul (0.3-0.9); MONOCYTES % 7.4 % (0.0-11.0); NEUTROPHIL # 5.3 10^3/ul (1.6-7.5); PLATELET COUNT 523 10^3/UL (140-415); RED BLOOD COUNT 3.47 10^6/ul (4.70-6.10)
[2017-12-11 08:06] LABS: ANION GAP 19 (8-16); BLOOD UREA NITROGEN 64 mg/dl (7-20); CALCIUM 8.5 mg/dl (8.4-10.2); CARBON DIOXIDE 29 mmol/L (21-31); CHLORIDE 97 mmol/L (97-110); CREATININE 5.41 mg/dl (0.61-1.24); GLUCOSE 171 mg/dl (70-220); MAGNESIUM 2.5 mg/dl (1.7-2.5); PHOSPHORUS 3.4 mg/dl (2.5-4.9); SODIUM 141 mmol/L (135-144)
[2017-12-11] MEDS: DOCUSATE SODIUM 10 MG/ML (10ML CUP) NGT ×2 (09:21→22:04)
[2017-12-11] MEDS: FERROUS SULFATE 60 MG/ML 5ML CUP NGT (09:21)
[2017-12-11] MEDS: ASPIRIN 81 MG TAB PO (09:22)
[2017-12-11] MEDS: QUETIAPINE 100 MG TAB GTB ×2 (09:22→22:04)
[2017-12-11] MEDS: NEUTRA-PHOS 250 MG PACKET GTB ×2 (09:22→22:03)
[2017-12-11] MEDS: PANTOPRAZOLE 40 MG INJ IV ×2 (09:22→17:09)
[2017-12-11] MEDS: LANTHANUM 500 MG CHEW PO ×3 (09:22→17:09)
[2017-12-11] MEDS: VALPROIC ACID LIQUID CUP 250 MG/5 ML CUP GTB ×3 (09:22→22:03)
[2017-12-11] MEDS: BALSAM PERU/CASTOR OIL 60 GM TUBE TOP (09:40)
[2017-12-11] MEDS: LISINOPRIL 5 MG TAB PO (09:40)
[2017-12-11] MEDS: HEPARIN 1000 UNITS/ML 10 ML INJ CATHETER (09:47)
[2017-12-11] MEDS ORDERED: LABETALOL HCL 20MG INJ IV (11:30)
[2017-12-11] MEDS: hydrALAzine 20 MG INJ IV (12:20)
[2017-12-11] MEDS: INSULIN GLARGINE [LANtus] 3 ML PEN SC (20:12)
[2017-12-11] MEDS: ATORVASTATIN 80 MG TAB PO (22:04)
[2017-12-11] MEDS: ALBUMIN HUMAN 25% 100 ML IV (22:48)
[2017-12-11] MEDS: SOD CHLORIDE 0.9% 250 ML IV (22:49)
[2017-12-12] MEDS: INSULIN ASPART [NOVOLOG] 3 ML PEN SC ×4 (00:48→18:12)
[2017-12-12] MEDS: PANTOPRAZOLE 40 MG INJ IV ×2 (05:49→17:54)
[2017-12-12 08:33] LABS: HEMOGLOBIN 9.3 g/dl (14.0-18.0)
[2017-12-12] MEDS: FERROUS SULFATE 60 MG/ML 5ML CUP NGT (09:00)
[2017-12-12] MEDS: LANTHANUM 500 MG CHEW PO ×3 (09:00→17:55)
[2017-12-12] MEDS: QUETIAPINE 100 MG TAB GTB ×2 (09:00→21:00)
[2017-12-12] MEDS: VALPROIC ACID LIQUID CUP 250 MG/5 ML CUP GTB ×3 (09:00→22:30)
[2017-12-12] MEDS: NEUTRA-PHOS 250 MG PACKET GTB ×2 (09:00→22:31)
[2017-12-12] MEDS: DOCUSATE SODIUM 10 MG/ML (10ML CUP) NGT ×2 (09:00→22:30)
[2017-12-12] MEDS: LISINOPRIL 5 MG TAB PO (09:01)
[2017-12-12] MEDS: ASPIRIN 81 MG TAB PO (09:02)
[2017-12-12] MEDS: BALSAM PERU/CASTOR OIL 60 GM TUBE TOP (09:02)
[2017-12-12] MEDS: LORAZEPAM 2 MG INJ IV ×3 (09:03→18:50)
[2017-12-12] MEDS: EPOETIN 10000 UNITS/1 ML INJ (ESRD) SC (17:56)
[2017-12-12] MEDS: ATORVASTATIN 80 MG TAB PO (22:30)
[2017-12-12] MEDS: INSULIN GLARGINE [LANtus] 3 ML PEN SC (22:33)
[2017-12-13] MEDS: HALOPERIDOL 5 MG INJ IM (00:57)
[2017-12-13] MEDS: INSULIN ASPART [NOVOLOG] 3 ML PEN SC ×5 (01:10→23:28)
[2017-12-13] MEDS: PANTOPRAZOLE 40 MG INJ IV ×2 (05:53→17:50)
[2017-12-13] MEDS: LORAZEPAM 2 MG INJ IV (08:51)
[2017-12-13] MEDS: LANTHANUM 500 MG CHEW PO ×3 (08:51→17:49)
[2017-12-13] MEDS: VALPROIC ACID LIQUID CUP 250 MG/5 ML CUP GTB ×3 (08:54→21:20)
[2017-12-13] MEDS: QUETIAPINE 100 MG TAB GTB ×2 (08:54→21:00)
[2017-12-13] MEDS: DOCUSATE SODIUM 10 MG/ML (10ML CUP) NGT ×2 (08:54→21:21)
[2017-12-13] MEDS: LISINOPRIL 5 MG TAB PO (08:54)
[2017-12-13] MEDS: NEUTRA-PHOS 250 MG PACKET GTB ×2 (08:54→21:21)
[2017-12-13] MEDS: FERROUS SULFATE 60 MG/ML 5ML CUP NGT (08:54)
[2017-12-13] MEDS: ASPIRIN 81 MG TAB PO (08:54)
[2017-12-13] MEDS: BALSAM PERU/CASTOR OIL 60 GM TUBE TOP (08:55)
[2017-12-13] MEDS ORDERED: HEPARIN 1000 UNITS/ML 10 ML INJ CATHETER ×2 (12:30)
[2017-12-13] MEDS: ATORVASTATIN 80 MG TAB PO (21:21)
[2017-12-13] MEDS: INSULIN GLARGINE [LANtus] 3 ML PEN SC (21:23)
[2017-12-13] MEDS: HEPARIN 5,000 UNIT/0.5 ML VIAL SC (21:24)
[2017-12-14] MEDS: PANTOPRAZOLE 40 MG INJ IV ×2 (05:52→17:45)
[2017-12-14] MEDS: INSULIN ASPART [NOVOLOG] 3 ML PEN SC ×3 (05:56→17:41)
[2017-12-14] MEDS: LANTHANUM 500 MG CHEW PO ×3 (08:09→17:47)
[2017-12-14] MEDS: VALPROIC ACID LIQUID CUP 250 MG/5 ML CUP GTB ×3 (08:10→22:18)
[2017-12-14] MEDS: NEUTRA-PHOS 250 MG PACKET GTB ×2 (08:10→22:19)
[2017-12-14] MEDS: QUETIAPINE 100 MG TAB GTB ×2 (08:10→22:19)
[2017-12-14] MEDS: LISINOPRIL 5 MG TAB PO (08:11)
[2017-12-14] MEDS: ASPIRIN 81 MG TAB PO (08:11)
[2017-12-14] MEDS: BALSAM PERU/CASTOR OIL 60 GM TUBE TOP (08:12)
[2017-12-14] MEDS: DOCUSATE SODIUM 10 MG/ML (10ML CUP) NGT ×2 (08:12→22:19)
[2017-12-14] MEDS: FERROUS SULFATE 60 MG/ML 5ML CUP NGT (08:12)
[2017-12-14] MEDS: HEPARIN 5,000 UNIT/0.5 ML VIAL SC ×2 (08:15→22:22)
[2017-12-14 10:20] LABS: HEMOGLOBIN 8.7 g/dl (14.0-18.0)
[2017-12-14 10:20] LABS: HEMATOCRIT 28.9 % (42.0-52.0)
[2017-12-14 10:42] LABS: ALBUMIN 3.4 g/dl (3.3-4.9); ANION GAP 18 (8-16); BLOOD UREA NITROGEN 53 mg/dl (7-20); CALCIUM 8.4 mg/dl (8.4-10.2); CARBON DIOXIDE 29 mmol/L (21-31); CHLORIDE 95 mmol/L (97-110); CREATININE 5.12 mg/dl (0.61-1.24); GLUCOSE 226 mg/dl (70-220); MAGNESIUM 2.2 mg/dl (1.7-2.5); PHOSPHORUS 4.5 mg/dl (2.5-4.9); POTASSIUM 4.1 mmol/L (3.5-5.1); SODIUM 138 mmol/L (135-144)
[2017-12-14] MEDS: LORAZEPAM 2 MG INJ IV (14:33)
[2017-12-14] MEDS: EPOETIN 10000 UNITS/1 ML INJ (ESRD) SC (17:35)
[2017-12-14] MEDS: INSULIN GLARGINE [LANtus] 3 ML PEN SC (22:17)
[2017-12-14] MEDS: ACETAMINOPHEN 325 MG TAB PO (22:19)
[2017-12-14] MEDS: ATORVASTATIN 80 MG TAB PO (22:19)
[2017-12-15] MEDS: INSULIN ASPART [NOVOLOG] 3 ML PEN SC ×4 (00:22→17:52)
[2017-12-15] MEDS: LORAZEPAM 2 MG INJ IV ×3 (02:31→20:42)
[2017-12-15] MEDS: PANTOPRAZOLE 40 MG INJ IV ×2 (06:15→17:50)
[2017-12-15] MEDS: NEUTRA-PHOS 250 MG PACKET GTB ×2 (08:15→19:58)
[2017-12-15] MEDS: LANTHANUM 500 MG CHEW PO ×3 (08:15→17:50)
[2017-12-15] MEDS: VALPROIC ACID LIQUID CUP 250 MG/5 ML CUP GTB ×3 (08:15→19:57)
[2017-12-15] MEDS: DOCUSATE SODIUM 10 MG/ML (10ML CUP) NGT ×2 (08:15→19:56)
[2017-12-15] MEDS: FERROUS SULFATE 60 MG/ML 5ML CUP NGT (08:15)
[2017-12-15] MEDS: QUETIAPINE 100 MG TAB GTB ×2 (08:15→19:58)
[2017-12-15] MEDS: ASPIRIN 81 MG TAB PO (08:15)
[2017-12-15] MEDS: BALSAM PERU/CASTOR OIL 60 GM TUBE TOP (08:15)
[2017-12-15] MEDS: HEPARIN 5,000 UNIT/0.5 ML VIAL SC ×2 (09:00→20:20)
[2017-12-15] MEDS: LISINOPRIL 5 MG TAB PO (09:00)
[2017-12-15] MEDS: ATORVASTATIN 80 MG TAB PO (20:00)
[2017-12-15] MEDS: INSULIN GLARGINE [LANtus] 3 ML PEN SC (20:20)
[2017-12-15] MEDS: SOD CHLORIDE 0.9% 500 ML IV (22:33)
[2017-12-16] MEDS: PANTOPRAZOLE 40 MG INJ IV ×2 (06:00→18:02)
[2017-12-16] MEDS: INSULIN ASPART [NOVOLOG] 3 ML PEN SC ×4 (06:06→17:49)
[2017-12-16] MEDS: HEPARIN 5,000 UNIT/0.5 ML VIAL SC ×2 (08:11→21:14)
[2017-12-16] MEDS: LANTHANUM 500 MG CHEW PO ×3 (08:12→18:02)
[2017-12-16] MEDS: FERROUS SULFATE 60 MG/ML 5ML CUP NGT (08:12)
[2017-12-16] MEDS: DOCUSATE SODIUM 10 MG/ML (10ML CUP) NGT ×2 (08:12→21:11)
[2017-12-16] MEDS: VALPROIC ACID LIQUID CUP 250 MG/5 ML CUP GTB ×3 (08:12→21:00)
[2017-12-16] MEDS: ASPIRIN 81 MG TAB PO (08:13)
[2017-12-16] MEDS: NEUTRA-PHOS 250 MG PACKET GTB ×2 (08:13→21:17)
[2017-12-16] MEDS: BALSAM PERU/CASTOR OIL 60 GM TUBE TOP (08:14)
[2017-12-16] MEDS: LISINOPRIL 5 MG TAB PO (09:00)
[2017-12-16 09:28] LABS: ADD MAN DIFF? NO
[2017-12-16 09:37] LABS: WHITE BLOOD COUNT 14.2 10^3/ul (4.8-10.8)
[2017-12-16 09:37] LABS: ABNORMAL IP MESSAGE 1; BASOPHIL # 0.2 10^3/ul (0.0-0.1); BASOPHILS % 1.6 % (0.0-2.0); EOSINOPHILS # 0.7 10^3/ul (0.0-0.5); EOSINOPHILS % 4.9 % (0.0-7.0); HEMATOCRIT 29.8 % (42.0-52.0); HEMOGLOBIN 9.2 g/dl (14.0-18.0); LYMPHOCYTES # 4.5 10^3/ul (0.8-2.9); LYMPHOCYTES % 32.1 % (15.0-51.0); MEAN CORPUSCULAR HEMOGLOBIN 26.4 pg (29.0-33.0); MEAN CORPUSCULAR HGB CONC 30.9 g/dl (32.0-37.0); MEAN CORPUSCULAR VOLUME 85.4 fl (82.0-101.0); MEAN PLATELET VOLUME 9.6 fl (7.4-10.4); MONOCYTE # 2.1 10^3/ul (0.3-0.9); MONOCYTES % 14.5 % (0.0-11.0); NEUTROPHIL # 6.5 10^3/ul (1.6-7.5); NEUTROPHILS % 46.1 % (39.0-77.0); PLATELET COUNT 488 10^3/UL (140-415); POSITIVE DIFF @See below; RED BLOOD COUNT 3.49 10^6/ul (4.70-6.10); RED CELL DISTRIBUTION WIDTH 18.5 % (11.5-14.5)
[2017-12-16 09:56] LABS: ALBUMIN 3.6 g/dl (3.3-4.9); ANION GAP 19 (8-16); BLOOD UREA NITROGEN 55 mg/dl (7-20); CALCIUM 8.6 mg/dl (8.4-10.2); CARBON DIOXIDE 28 mmol/L (21-31); CHLORIDE 98 mmol/L (97-110); CREATININE 5.42 mg/dl (0.61-1.24); GLUCOSE 203 mg/dl (70-220); MAGNESIUM 2.3 mg/dl (1.7-2.5); PHOSPHORUS 4.8 mg/dl (2.5-4.9); POTASSIUM 4.3 mmol/L (3.5-5.1); SODIUM 141 mmol/L (135-144)
[2017-12-16] MEDS ORDERED: RISPERIDONE (1 MG/ML PO SYG) GTB (11:00)
[2017-12-16] MEDS: ACETAMINOPHEN 325 MG TAB PO (15:54)
[2017-12-16] MEDS: EPOETIN 10000 UNITS/1 ML INJ (ESRD) SC (17:14)
[2017-12-16] MEDS ORDERED: RISPERIDONE (1 MG/ML PO SYG) PO (21:00)
[2017-12-16] MEDS: ATORVASTATIN 80 MG TAB PO (21:11)
[2017-12-16] MEDS: INSULIN GLARGINE [LANtus] 3 ML PEN SC (21:17)
[2017-12-16] MEDS: LORAZEPAM 2 MG INJ IV (21:23)
[2017-12-16] MEDS: HALOPERIDOL 5 MG INJ IM (22:39)
[2017-12-16] MEDS: RISPERIDONE 1 MG TAB GTB (23:33)
[2017-12-17] MEDS: INSULIN ASPART [NOVOLOG] 3 ML PEN SC ×4 (00:38→17:51)
[2017-12-17] MEDS: SOD CHLORIDE 0.9% 500 ML IV (00:39)
[2017-12-17] MEDS: PANTOPRAZOLE 40 MG INJ IV (06:32)
[2017-12-17 08:24] LABS: ADD MAN DIFF? NO
[2017-12-17 08:29] LABS: ABNORMAL IP MESSAGE 1; BASOPHIL # 0.2 10^3/ul (0.0-0.1); BASOPHILS % 1.5 % (0.0-2.0); EOSINOPHILS # 0.6 10^3/ul (0.0-0.5); EOSINOPHILS % 5.1 % (0.0-7.0); HEMATOCRIT 29.6 % (42.0-52.0); HEMOGLOBIN 8.9 g/dl (14.0-18.0); LYMPHOCYTES # 3.4 10^3/ul (0.8-2.9); LYMPHOCYTES % 27.8 % (15.0-51.0); MEAN CORPUSCULAR HEMOGLOBIN 25.8 pg (29.0-33.0); MEAN CORPUSCULAR HGB CONC 30.1 g/dl (32.0-37.0); MEAN CORPUSCULAR VOLUME 85.8 fl (82.0-101.0); MEAN PLATELET VOLUME 9.4 fl (7.4-10.4); MONOCYTES % 16.1 % (0.0-11.0); NEUTROPHILS % 48.8 % (39.0-77.0); PLATELET COUNT 445 10^3/UL (140-415); POSITIVE DIFF @See below; RED BLOOD COUNT 3.45 10^6/ul (4.70-6.10); RED CELL DISTRIBUTION WIDTH 18.3 % (11.5-14.5)
[2017-12-17 08:29] LABS: WHITE BLOOD COUNT 12.3 10^3/ul (4.8-10.8)
[2017-12-17] MEDS: HEPARIN 5,000 UNIT/0.5 ML VIAL SC ×2 (09:00→21:08)
[2017-12-17] MEDS: DOCUSATE SODIUM 10 MG/ML (10ML CUP) NGT ×2 (09:00→21:10)
[2017-12-17] MEDS: ASPIRIN 81 MG TAB PO (09:00)
[2017-12-17] MEDS: VALPROIC ACID LIQUID CUP 250 MG/5 ML CUP GTB ×3 (09:00→21:10)
[2017-12-17] MEDS: NEUTRA-PHOS 250 MG PACKET GTB ×2 (09:00→21:11)
[2017-12-17] MEDS: FERROUS SULFATE 60 MG/ML 5ML CUP NGT (09:00)
[2017-12-17] MEDS: LISINOPRIL 5 MG TAB PO (09:00)
[2017-12-17] MEDS: LANTHANUM 500 MG CHEW PO ×3 (09:51→17:51)
[2017-12-17] MEDS: BALSAM PERU/CASTOR OIL 60 GM TUBE TOP (11:56)
[2017-12-17] MEDS: hydrALAzine 20 MG INJ IV (15:41)
[2017-12-17] MEDS: LANSOPRAZOLE 30 MG CAP GTB (17:51)
[2017-12-17] MEDS ORDERED: DIATR MEGLU/DIATRIZOATE SODIUM 120 ML BTL (18:08)
[2017-12-17] MEDS: INSULIN GLARGINE [LANtus] 3 ML PEN SC (21:07)
[2017-12-17] MEDS: ATORVASTATIN 80 MG TAB PO (21:10)
[2017-12-17] MEDS: RISPERIDONE 1 MG TAB GTB (21:10)
[2017-12-18] MEDS: INSULIN ASPART [NOVOLOG] 3 ML PEN SC ×4 (01:43→17:43)
[2017-12-18] MEDS: LANSOPRAZOLE 30 MG CAP GTB ×2 (05:56→17:48)
[2017-12-18 06:27] LABS: ADD MAN DIFF? NO
[2017-12-18 06:29] LABS: WHITE BLOOD COUNT 15.4 10^3/ul (4.8-10.8)
[2017-12-18 06:29] LABS: ABNORMAL IP MESSAGE 1; BASOPHIL # 0.2 10^3/ul (0.0-0.1); BASOPHILS % 1.2 % (0.0-2.0); EOSINOPHILS # 0.5 10^3/ul (0.0-0.5); EOSINOPHILS % 3.5 % (0.0-7.0); HEMATOCRIT 30.7 % (42.0-52.0); HEMOGLOBIN 9.3 g/dl (14.0-18.0); LYMPHOCYTES # 3.8 10^3/ul (0.8-2.9); LYMPHOCYTES % 24.8 % (15.0-51.0); MEAN CORPUSCULAR HEMOGLOBIN 25.8 pg (29.0-33.0); MEAN CORPUSCULAR HGB CONC 30.3 g/dl (32.0-37.0); MEAN PLATELET VOLUME 9.2 fl (7.4-10.4); MONOCYTE # 2.2 10^3/ul (0.3-0.9); NEUTROPHIL # 8.6 10^3/ul (1.6-7.5); PLATELET COUNT 527 10^3/UL (140-415); POSITIVE DIFF @See below; RED BLOOD COUNT 3.61 10^6/ul (4.70-6.10); RED CELL DISTRIBUTION WIDTH 18.4 % (11.5-14.5)
[2017-12-18] MEDS: LANTHANUM 500 MG CHEW PO ×3 (09:03→17:48)
[2017-12-18] MEDS: DOCUSATE SODIUM 10 MG/ML (10ML CUP) NGT ×2 (09:04→21:00)
[2017-12-18] MEDS: ASPIRIN 81 MG TAB PO (09:04)
[2017-12-18] MEDS: FERROUS SULFATE 60 MG/ML 5ML CUP NGT (09:04)
[2017-12-18] MEDS: VALPROIC ACID LIQUID CUP 250 MG/5 ML CUP GTB ×3 (09:04→21:00)
[2017-12-18] MEDS: LISINOPRIL 5 MG TAB PO (09:05)
[2017-12-18] MEDS: HEPARIN 5,000 UNIT/0.5 ML VIAL SC ×2 (09:14→21:24)
[2017-12-18] MEDS: LORAZEPAM 2 MG INJ IV (10:14)
[2017-12-18] MEDS: BALSAM PERU/CASTOR OIL 60 GM TUBE TOP (10:28)
[2017-12-18] MEDS: NEUTRA-PHOS 250 MG PACKET GTB ×2 (10:59→21:00)
[2017-12-18] MEDS: INSULIN GLARGINE [LANtus] 3 ML PEN SC ×2 (20:00→21:25)
[2017-12-18] MEDS: ATORVASTATIN 80 MG TAB PO (21:00)
[2017-12-18] MEDS: DEXTROSE 5%-0.45% NACL 1,000 ML IV (21:23)
[2017-12-19] MEDS: INSULIN ASPART [NOVOLOG] 3 ML PEN SC ×5 (03:13→16:58)
[2017-12-19] MEDS: LANSOPRAZOLE 30 MG CAP GTB ×2 (05:50→18:00)
[2017-12-19] MEDS: LANTHANUM 500 MG CHEW PO ×3 (07:55→23:01)
[2017-12-19] MEDS: ASPIRIN 81 MG TAB PO (08:45)
[2017-12-19] MEDS: VALPROIC ACID LIQUID CUP 250 MG/5 ML CUP GTB ×3 (08:45→21:00)
[2017-12-19] MEDS: LISINOPRIL 5 MG TAB PO (08:45)
[2017-12-19] MEDS: NEUTRA-PHOS 250 MG PACKET GTB ×2 (08:45→21:00)
[2017-12-19] MEDS: FERROUS SULFATE 60 MG/ML 5ML CUP NGT (08:45)
[2017-12-19] MEDS: DOCUSATE SODIUM 10 MG/ML (10ML CUP) NGT ×2 (08:45→21:00)
[2017-12-19] MEDS: HEPARIN 5,000 UNIT/0.5 ML VIAL SC ×2 (09:10→21:00)
[2017-12-19] MEDS: BALSAM PERU/CASTOR OIL 60 GM TUBE TOP (09:12)
[2017-12-19 17:05] LABS: ADD MAN DIFF? NO
[2017-12-19 17:08] LABS: WHITE BLOOD COUNT 13.2 10^3/ul (4.8-10.8)
[2017-12-19 17:08] LABS: ABNORMAL IP MESSAGE 1; BASOPHIL # 0.2 10^3/ul (0.0-0.1); BASOPHILS % 1.5 % (0.0-2.0); EOSINOPHILS # 0.6 10^3/ul (0.0-0.5); EOSINOPHILS % 4.4 % (0.0-7.0); HEMATOCRIT 34.7 % (42.0-52.0); HEMOGLOBIN 10.7 g/dl (14.0-18.0); LYMPHOCYTES # 2.6 10^3/ul (0.8-2.9); LYMPHOCYTES % 19.3 % (15.0-51.0); MEAN CORPUSCULAR HGB CONC 30.8 g/dl (32.0-37.0); MEAN CORPUSCULAR VOLUME 84.2 fl (82.0-101.0); MEAN PLATELET VOLUME 8.8 fl (7.4-10.4); MONOCYTE # 1.7 10^3/ul (0.3-0.9); NEUTROPHIL # 8.1 10^3/ul (1.6-7.5); NEUTROPHILS % 61.4 % (39.0-77.0); PLATELET COUNT 544 10^3/UL (140-415); POSITIVE DIFF @See below; RED BLOOD COUNT 4.12 10^6/ul (4.70-6.10); RED CELL DISTRIBUTION WIDTH 18.5 % (11.5-14.5)
[2017-12-19 17:24] LABS: INR 0.94; PROTIME 12.7 Sec (11.9-14.9)
[2017-12-19] MEDS: EPOETIN 10000 UNITS/1 ML INJ (ESRD) SC (17:24)
[2017-12-19 17:25] LABS: PARTIAL THROMBOPLASTIN TIME 41.6 Sec (25.0-35.0); THROMBIN TIME 19.5 SEC (13.8-19.1)
[2017-12-19 17:26] LABS: ANION GAP 16 (8-16); BLOOD UREA NITROGEN 26 mg/dl (7-20); CALCIUM 9.1 mg/dl (8.4-10.2); CARBON DIOXIDE 29 mmol/L (21-31); CHLORIDE 100 mmol/L (97-110); CREATININE 3.21 mg/dl (0.61-1.24); GLUCOSE 127 mg/dl (70-220); POTASSIUM 3.8 mmol/L (3.5-5.1); SODIUM 141 mmol/L (135-144)
[2017-12-19 17:32] LABS: PLATELET COUNT 544 10^3/UL (140-440)
[2017-12-19] MEDS: DIATR MEGLU/DIATRIZOATE SODIUM 120 ML BTL (18:20)
[2017-12-19] MEDS: ATORVASTATIN 80 MG TAB PO (21:00)
[2017-12-19] MEDS: INSULIN GLARGINE [LANtus] 3 ML PEN SC (23:02)
[2017-12-20] MEDS: INSULIN ASPART [NOVOLOG] 3 ML PEN SC ×6 (01:23→21:00)
[2017-12-20] MEDS: DEXTROSE 5%-0.45% NACL 1,000 ML IV (01:30)
[2017-12-20] MEDS: LORAZEPAM 2 MG INJ IV ×2 (01:43→17:19)
[2017-12-20] MEDS: LANSOPRAZOLE 30 MG CAP GTB ×2 (06:00→18:00)
[2017-12-20 06:13] LABS: ADD MAN DIFF? NO
[2017-12-20 06:25] LABS: WHITE BLOOD COUNT 12.1 10^3/ul (4.8-10.8)
[2017-12-20 06:25] LABS: ABNORMAL IP MESSAGE 1; BASOPHIL # 0.2 10^3/ul (0.0-0.1); BASOPHILS % 1.7 % (0.0-2.0); EOSINOPHILS # 0.5 10^3/ul (0.0-0.5); EOSINOPHILS % 4.5 % (0.0-7.0); HEMATOCRIT 32.6 % (42.0-52.0); HEMOGLOBIN 9.8 g/dl (14.0-18.0); LYMPHOCYTES # 3.9 10^3/ul (0.8-2.9); LYMPHOCYTES % 32.3 % (15.0-51.0); MEAN CORPUSCULAR HEMOGLOBIN 25.5 pg (29.0-33.0); MEAN CORPUSCULAR HGB CONC 30.1 g/dl (32.0-37.0); MEAN CORPUSCULAR VOLUME 84.7 fl (82.0-101.0); MEAN PLATELET VOLUME 8.8 fl (7.4-10.4); MONOCYTE # 1.6 10^3/ul (0.3-0.9); MONOCYTES % 13.2 % (0.0-11.0); NEUTROPHIL # 5.8 10^3/ul (1.6-7.5); NEUTROPHILS % 47.8 % (39.0-77.0); PLATELET COUNT 487 10^3/UL (140-415); POSITIVE DIFF @See below; RED BLOOD COUNT 3.85 10^6/ul (4.70-6.10); RED CELL DISTRIBUTION WIDTH 18.6 % (11.5-14.5)
[2017-12-20 07:14] LABS: ANION GAP 17 (8-16); BLOOD UREA NITROGEN 38 mg/dl (7-20); CALCIUM 9.1 mg/dl (8.4-10.2); CARBON DIOXIDE 28 mmol/L (21-31); CHLORIDE 101 mmol/L (97-110); CREATININE 4.48 mg/dl (0.61-1.24); GLUCOSE 129 mg/dl (70-220); MAGNESIUM 2.3 mg/dl (1.7-2.5); PHOSPHORUS 5.6 mg/dl (2.5-4.9); POTASSIUM 3.9 mmol/L (3.5-5.1); SODIUM 142 mmol/L (135-144)
[2017-12-20] MEDS: LANTHANUM 500 MG CHEW PO ×3 (07:42→17:55)
[2017-12-20] MEDS: DOCUSATE SODIUM 10 MG/ML (10ML CUP) NGT ×2 (09:00→21:00)
[2017-12-20] MEDS: FERROUS SULFATE 60 MG/ML 5ML CUP NGT (09:00)
[2017-12-20] MEDS: VALPROIC ACID LIQUID CUP 250 MG/5 ML CUP GTB ×3 (09:00→21:00)
[2017-12-20] MEDS: LISINOPRIL 5 MG TAB PO (09:00)
[2017-12-20] MEDS: ASPIRIN 81 MG TAB PO (09:00)
[2017-12-20] MEDS: BALSAM PERU/CASTOR OIL 60 GM TUBE TOP (10:14)
[2017-12-20] MEDS: HEPARIN 5,000 UNIT/0.5 ML VIAL SC ×2 (10:20→21:00)
[2017-12-20] MEDS: SOD CHLORIDE 0.9% 500 ML IV (13:24)
[2017-12-20] MEDS: INSULIN GLARGINE [LANtus] 3 ML PEN SC (20:52)
[2017-12-20] MEDS: ATORVASTATIN 80 MG TAB PO (21:00)
[2017-12-21] MEDS: INSULIN ASPART [NOVOLOG] 3 ML PEN SC ×6 (01:00→21:00)
[2017-12-21] MEDS: DEXTROSE 5%-0.45% NACL 1,000 ML IV (01:30)
[2017-12-21] MEDS: LANSOPRAZOLE 30 MG CAP GTB (05:52)
[2017-12-21] MEDS: LANTHANUM 500 MG CHEW PO ×4 (07:55→17:51)
[2017-12-21] MEDS: LISINOPRIL 5 MG TAB PO ×2 (09:00→09:32)
[2017-12-21] MEDS: FERROUS SULFATE 60 MG/ML 5ML CUP NGT ×2 (09:00→09:29)
[2017-12-21] MEDS: DOCUSATE SODIUM 10 MG/ML (10ML CUP) NGT ×3 (09:00→21:27)
[2017-12-21] MEDS: HEPARIN 5,000 UNIT/0.5 ML VIAL SC ×2 (09:00→21:00)
[2017-12-21] MEDS: ACETAMINOPHEN 325 MG TAB PO (09:30)
[2017-12-21] MEDS: VALPROIC ACID LIQUID CUP 250 MG/5 ML CUP GTB (09:30)
[2017-12-21] MEDS: ASPIRIN 81 MG TAB PO (09:31)
[2017-12-21] MEDS: BALSAM PERU/CASTOR OIL 60 GM TUBE TOP (09:37)
[2017-12-21] MEDS: HEPARIN 1000 UNITS/ML 10 ML INJ CATHETER (11:14)
[2017-12-21] MEDS ORDERED: VALPROATE INJ 750 MG in SOD CHLORIDE 0.9% 50 ML IVPB (11:30)
[2017-12-21] MEDS: VALPROATE INJ 250 MG in SOD CHLORIDE 0.9% 50 ML IVPB (12:30)
[2017-12-21] MEDS: LORAZEPAM 2 MG INJ IV (13:24)
[2017-12-21] MEDS: FAMOTIDINE 20 MG INJ IV (16:19)
[2017-12-21] MEDS: ASPIRIN 300 MG SUPP PR (16:19)
[2017-12-21] MEDS: EPOETIN 10000 UNITS/1 ML INJ (ESRD) SC (17:41)
[2017-12-21] MEDS ORDERED: CEFAZOLIN 1 GM/50 ML (PMX) 0 ML IVPB (19:00)
[2017-12-21] MEDS: PROPOFOL 40 ML (19:45)
[2017-12-21] MEDS: ATORVASTATIN 80 MG TAB PO (21:27)
[2017-12-21] MEDS: INSULIN GLARGINE [LANtus] 3 ML PEN SC (21:32)
[2017-12-22] MEDS: INSULIN ASPART [NOVOLOG] 3 ML PEN SC ×6 (01:00→20:48)
[2017-12-22] MEDS: DEXTROSE 5%-0.45% NACL 1,000 ML IV (01:30)
[2017-12-22] MEDS: ACETAMINOPHEN 325 MG TAB PO ×2 (02:12→18:16)
[2017-12-22] MEDS: LORAZEPAM 2 MG INJ IV (03:20)
[2017-12-22] MEDS: RISPERIDONE 1 MG TAB GTB (04:07)
[2017-12-22 07:38] LABS: ADD MAN DIFF? NO
[2017-12-22 07:49] LABS: BASOPHIL # 0.3 10^3/ul (0.0-0.1); BASOPHILS % 2.3 % (0.0-2.0); EOSINOPHILS # 0.5 10^3/ul (0.0-0.5); EOSINOPHILS % 4.5 % (0.0-7.0); HEMATOCRIT 31.8 % (42.0-52.0); HEMOGLOBIN 9.8 g/dl (14.0-18.0); LYMPHOCYTES # 3.6 10^3/ul (0.8-2.9); LYMPHOCYTES % 31.2 % (15.0-51.0); MEAN CORPUSCULAR HEMOGLOBIN 25.8 pg (29.0-33.0); MEAN CORPUSCULAR HGB CONC 30.8 g/dl (32.0-37.0); MEAN CORPUSCULAR VOLUME 83.7 fl (82.0-101.0); MEAN PLATELET VOLUME 8.6 fl (7.4-10.4); MONOCYTE # 1.5 10^3/ul (0.3-0.9); MONOCYTES % 12.8 % (0.0-11.0); NEUTROPHIL # 5.7 10^3/ul (1.6-7.5); NEUTROPHILS % 48.8 % (39.0-77.0); PLATELET COUNT 506 10^3/UL (140-415); RED CELL DISTRIBUTION WIDTH 18.8 % (11.5-14.5)
[2017-12-22 07:49] LABS: WHITE BLOOD COUNT 11.7 10^3/ul (4.8-10.8)
[2017-12-22] MEDS: DEXTROSE 50% 50 ML SYRINGE IV (07:54)
[2017-12-22 08:12] LABS: ANION GAP 17 (8-16); BLOOD UREA NITROGEN 38 mg/dl (7-20); CALCIUM 9.1 mg/dl (8.4-10.2); CARBON DIOXIDE 25 mmol/L (21-31); CHLORIDE 103 mmol/L (97-110); CREATININE 5.45 mg/dl (0.61-1.24); GLUCOSE 73 mg/dl (70-220); PHOSPHORUS 6.1 mg/dl (2.5-4.9); POTASSIUM 3.7 mmol/L (3.5-5.1); SODIUM 141 mmol/L (135-144)
[2017-12-22] MEDS: LISINOPRIL 5 MG TAB PO (08:16)
[2017-12-22] MEDS: DOCUSATE SODIUM 10 MG/ML (10ML CUP) NGT ×2 (08:17→20:46)
[2017-12-22] MEDS: FERROUS SULFATE 60 MG/ML 5ML CUP NGT (08:17)
[2017-12-22] MEDS: VALPROATE INJ 250 MG in SOD CHLORIDE 0.9% 50 ML IVPB (08:17)
[2017-12-22] MEDS: FAMOTIDINE 20 MG INJ IV (08:17)
[2017-12-22] MEDS: HEPARIN 5,000 UNIT/0.5 ML VIAL SC ×2 (08:17→21:00)
[2017-12-22] MEDS: LANTHANUM 500 MG CHEW PO ×3 (08:17→17:06)
[2017-12-22] MEDS: BALSAM PERU/CASTOR OIL 60 GM TUBE TOP (08:42)
[2017-12-22] MEDS: ASPIRIN 300 MG SUPP PR (09:00)
[2017-12-22] MEDS: ASPIRIN 81 MG TAB NGT (10:23)
[2017-12-22] MEDS: ATORVASTATIN 80 MG TAB PO (20:46)
[2017-12-22] MEDS: INSULIN GLARGINE [LANtus] 3 ML PEN SC (20:59)
[2017-12-23] MEDS: INSULIN ASPART [NOVOLOG] 3 ML PEN SC ×6 (01:00→22:25)
[2017-12-23] MEDS: HEPARIN 5,000 UNIT/0.5 ML VIAL SC ×2 (07:50→22:25)
[2017-12-23] MEDS: BALSAM PERU/CASTOR OIL 60 GM TUBE TOP (07:52)
[2017-12-23] MEDS: ACETAMINOPHEN 325 MG TAB PO (07:52)
[2017-12-23] MEDS: VALPROATE INJ 250 MG in SOD CHLORIDE 0.9% 50 ML IVPB (07:53)
[2017-12-23] MEDS: FERROUS SULFATE 60 MG/ML 5ML CUP NGT (07:54)
[2017-12-23] MEDS: FAMOTIDINE 20 MG INJ IV (07:54)
[2017-12-23] MEDS: DOCUSATE SODIUM 10 MG/ML (10ML CUP) NGT ×2 (07:54→22:16)
[2017-12-23] MEDS: ASPIRIN 81 MG TAB NGT (07:54)
[2017-12-23] MEDS: LISINOPRIL 5 MG TAB PO (07:54)
[2017-12-23 07:56] LABS: ADD MAN DIFF? NO
[2017-12-23 08:03] LABS: BASOPHIL # 0.3 10^3/ul (0.0-0.1); BASOPHILS % 2.5 % (0.0-2.0); EOSINOPHILS # 0.9 10^3/ul (0.0-0.5); EOSINOPHILS % 7.7 % (0.0-7.0); HEMOGLOBIN 10.4 g/dl (14.0-18.0); LYMPHOCYTES # 3.6 10^3/ul (0.8-2.9); LYMPHOCYTES % 32.6 % (15.0-51.0); MEAN CORPUSCULAR HEMOGLOBIN 26.3 pg (29.0-33.0); MEAN CORPUSCULAR HGB CONC 30.6 g/dl (32.0-37.0); MEAN CORPUSCULAR VOLUME 85.9 fl (82.0-101.0); MONOCYTE # 1.4 10^3/ul (0.3-0.9); MONOCYTES % 12.5 % (0.0-11.0); NEUTROPHIL # 4.9 10^3/ul (1.6-7.5); NEUTROPHILS % 44.3 % (39.0-77.0); PLATELET COUNT 519 10^3/UL (140-415); RED BLOOD COUNT 3.96 10^6/ul (4.70-6.10); RED CELL DISTRIBUTION WIDTH 18.8 % (11.5-14.5)
[2017-12-23 08:23] LABS: ANION GAP 20 (8-16); BLOOD UREA NITROGEN 49 mg/dl (7-20); CARBON DIOXIDE 26 mmol/L (21-31); CHLORIDE 100 mmol/L (97-110); CREATININE 7.11 mg/dl (0.61-1.24); GLUCOSE 160 mg/dl (70-220); MAGNESIUM 2.2 mg/dl (1.7-2.5); PHOSPHORUS 6.5 mg/dl (2.5-4.9); SODIUM 142 mmol/L (135-144)
[2017-12-23 14:47] LABS: HEPATITIS B SURFACE ANTIGEN NEGATIVE (NEGATIVE)
[2017-12-23] MEDS: HEPARIN 1000 UNITS/ML 10 ML INJ CATHETER (17:07)
[2017-12-23] MEDS: EPOETIN 10000 UNITS/1 ML INJ (ESRD) SC (17:24)
[2017-12-23] MEDS: hydrALAzine 20 MG INJ IV (18:27)
[2017-12-23] MEDS: ATORVASTATIN 80 MG TAB PO (22:16)
[2017-12-23] MEDS: INSULIN GLARGINE [LANtus] 3 ML PEN SC (22:23)
[2017-12-24] MEDS: INSULIN ASPART [NOVOLOG] 3 ML PEN SC ×6 (01:00→22:05)
[2017-12-24] MEDS: BALSAM PERU/CASTOR OIL 60 GM TUBE TOP (08:35)
[2017-12-24] MEDS: VALPROATE INJ 250 MG in SOD CHLORIDE 0.9% 50 ML IVPB (08:36)
[2017-12-24] MEDS: ASPIRIN 81 MG TAB NGT (08:38)
[2017-12-24] MEDS: FAMOTIDINE 20 MG INJ IV (08:38)
[2017-12-24] MEDS: DOCUSATE SODIUM 10 MG/ML (10ML CUP) NGT ×2 (08:38→21:20)
[2017-12-24] MEDS: FERROUS SULFATE 60 MG/ML 5ML CUP NGT (08:38)
[2017-12-24] MEDS: LISINOPRIL 5 MG TAB PO ×2 (08:39→12:42)
[2017-12-24] MEDS: HEPARIN 5,000 UNIT/0.5 ML VIAL SC ×2 (08:42→21:31)
[2017-12-24] MEDS: ACETAMINOPHEN 325 MG TAB PO ×2 (08:46→17:38)
[2017-12-24] MEDS: ATORVASTATIN 80 MG TAB PO (21:19)
[2017-12-24] MEDS: INSULIN GLARGINE [LANtus] 3 ML PEN SC (21:31)
[2017-12-25] MEDS: INSULIN ASPART [NOVOLOG] 3 ML PEN SC ×6 (01:00→21:00)
[2017-12-25] MEDS: DOCUSATE SODIUM 10 MG/ML (10ML CUP) NGT ×2 (08:32→21:53)
[2017-12-25] MEDS: FAMOTIDINE 20 MG INJ IV (08:33)
[2017-12-25] MEDS: ACETAMINOPHEN 325 MG TAB PO ×3 (08:33→22:08)
[2017-12-25] MEDS: FERROUS SULFATE 60 MG/ML 5ML CUP NGT (08:33)
[2017-12-25] MEDS: LISINOPRIL 5 MG TAB PO (08:34)
[2017-12-25] MEDS: ASPIRIN 81 MG TAB NGT (08:35)
[2017-12-25] MEDS: BALSAM PERU/CASTOR OIL 60 GM TUBE TOP (08:36)
[2017-12-25] MEDS: HEPARIN 5,000 UNIT/0.5 ML VIAL SC ×2 (08:37→22:02)
[2017-12-25] MEDS: VALPROATE INJ 250 MG in SOD CHLORIDE 0.9% 50 ML IVPB (08:45)
[2017-12-25] MEDS: GUAIFENESIN/DM 5ML CUP PO (18:11)
[2017-12-25] MEDS: ATORVASTATIN 80 MG TAB PO (21:49)
[2017-12-25] MEDS: INSULIN GLARGINE [LANtus] 3 ML PEN SC (22:02)
[2017-12-25] MEDS: ALBUTEROL 0.083% (NEB) 2.5 MG/3 ML AMP HHN (22:53)
[2017-12-26] MEDS: INSULIN ASPART [NOVOLOG] 3 ML PEN SC ×6 (01:00→20:45)
[2017-12-26] MEDS: ACETAMINOPHEN 325 MG TAB PO ×3 (06:24→20:00)
[2017-12-26 07:00] LABS: ADD MAN DIFF? NO
[2017-12-26 07:06] LABS: ABNORMAL IP MESSAGE 1; BASOPHIL # 0.3 10^3/ul (0.0-0.1); BASOPHILS % 1.8 % (0.0-2.0); EOSINOPHILS # 1.8 10^3/ul (0.0-0.5); EOSINOPHILS % 12.9 % (0.0-7.0); HEMATOCRIT 32.3 % (42.0-52.0); LYMPHOCYTES % 29.1 % (15.0-51.0); MEAN CORPUSCULAR HEMOGLOBIN 26.1 pg (29.0-33.0); MEAN CORPUSCULAR VOLUME 84.3 fl (82.0-101.0); MEAN PLATELET VOLUME 9.2 fl (7.4-10.4); MONOCYTE # 1.7 10^3/ul (0.3-0.9); MONOCYTES % 12.6 % (0.0-11.0); NEUTROPHIL # 5.9 10^3/ul (1.6-7.5); NEUTROPHILS % 43.2 % (39.0-77.0); PLATELET COUNT 446 10^3/UL (140-415); POSITIVE DIFF @See below; RED BLOOD COUNT 3.83 10^6/ul (4.70-6.10); RED CELL DISTRIBUTION WIDTH 19.1 % (11.5-14.5)
[2017-12-26 07:06] LABS: WHITE BLOOD COUNT 13.7 10^3/ul (4.8-10.8)
[2017-12-26 07:25] LABS: ANION GAP 16 (8-16); BLOOD UREA NITROGEN 55 mg/dl (7-20); CALCIUM 9.2 mg/dl (8.4-10.2); CARBON DIOXIDE 28 mmol/L (21-31); CHLORIDE 96 mmol/L (97-110); CREATININE 7.55 mg/dl (0.61-1.24); GLUCOSE 141 mg/dl (70-220); MAGNESIUM 2.3 mg/dl (1.7-2.5); PHOSPHORUS 6.1 mg/dl (2.5-4.9); POTASSIUM 3.8 mmol/L (3.5-5.1); SODIUM 136 mmol/L (135-144)
[2017-12-26] MEDS: DOCUSATE SODIUM 10 MG/ML (10ML CUP) NGT ×2 (09:00→20:00)
[2017-12-26] MEDS: LISINOPRIL 5 MG TAB PO (09:00)
[2017-12-26] MEDS: BALSAM PERU/CASTOR OIL 60 GM TUBE TOP (09:00)
[2017-12-26] MEDS: FERROUS SULFATE 60 MG/ML 5ML CUP NGT (09:00)
[2017-12-26] MEDS: ASPIRIN 81 MG TAB NGT (09:00)
[2017-12-26] MEDS: HEPARIN 5,000 UNIT/0.5 ML VIAL SC ×2 (09:00→20:05)
[2017-12-26] MEDS: VALPROATE INJ 250 MG in SOD CHLORIDE 0.9% 50 ML IVPB (10:15)
[2017-12-26] MEDS: FAMOTIDINE 20 MG INJ IV (10:15)
[2017-12-26] MEDS: SEVELAMER 400 MG TAB PO ×2 (11:50→17:55)
[2017-12-26] MEDS: ALBUMIN HUMAN 25% 50 ML IV (15:03)
[2017-12-26] MEDS: GUAIFENESIN/DM 5ML CUP PO ×2 (16:39→20:15)
[2017-12-26] MEDS: HEPARIN 1000 UNITS/ML 10 ML INJ CATHETER (18:02)
[2017-12-26] MEDS: EPOETIN 10000 UNITS/1 ML INJ (ESRD) SC (18:03)
[2017-12-26] MEDS: ATORVASTATIN 80 MG TAB PO (20:01)
[2017-12-26] MEDS: INSULIN GLARGINE [LANtus] 3 ML PEN SC (20:47)
[2017-12-27] MEDS: INSULIN ASPART [NOVOLOG] 3 ML PEN SC ×6 (01:00→21:00)
[2017-12-27] MEDS: ONDANSETRON 4 MG INJ IV ×3 (01:11→11:35)
[2017-12-27] MEDS: ALBUTEROL 0.083% (NEB) 2.5 MG/3 ML AMP HHN (02:08)
[2017-12-27] MEDS: BALSAM PERU/CASTOR OIL 60 GM TUBE TOP (09:00)
[2017-12-27] MEDS: FAMOTIDINE 20 MG INJ IV (09:00)
[2017-12-27] MEDS: FERROUS SULFATE 60 MG/ML 5ML CUP NGT (09:00)
[2017-12-27] MEDS: DOCUSATE SODIUM 10 MG/ML (10ML CUP) NGT ×2 (09:01→21:52)
[2017-12-27] MEDS: ASPIRIN 81 MG TAB NGT (09:02)
[2017-12-27] MEDS: LISINOPRIL 5 MG TAB PO (09:02)
[2017-12-27] MEDS: SEVELAMER 400 MG TAB PO ×4 (09:02→21:52)
[2017-12-27] MEDS: GUAIFENESIN/DM 5ML CUP PO ×2 (09:03→22:44)
[2017-12-27] MEDS: HEPARIN 5,000 UNIT/0.5 ML VIAL SC ×2 (09:16→22:37)
[2017-12-27] MEDS: ACETAMINOPHEN 325 MG TAB PO ×2 (10:21→17:42)
[2017-12-27] MEDS ORDERED: ONDANSETRON 4 MG INJ (11:32)
[2017-12-27] MEDS: METOCLOPRAMIDE 10 MG TAB PO ×2 (13:36→22:44)
[2017-12-27] MEDS: PHENOL 1.4% SOLN 180 ML BTL MT ×2 (14:33→17:42)
[2017-12-27] MEDS: ATORVASTATIN 80 MG TAB PO (21:52)
[2017-12-27] MEDS: INSULIN GLARGINE [LANtus] 3 ML PEN SC (23:13)
[2017-12-28] MEDS: ACETAMINOPHEN 325 MG TAB PO ×3 (00:31→10:41)
[2017-12-28] MEDS: INSULIN ASPART [NOVOLOG] 3 ML PEN SC ×6 (00:32→22:47)
[2017-12-28] MEDS: METOCLOPRAMIDE 10 MG TAB PO ×3 (06:00→22:26)
[2017-12-28] MEDS: GUAIFENESIN/DM 5ML CUP PO ×3 (06:05→17:43)
[2017-12-28 07:31] LABS: HEMATOCRIT 34.3 % (42.0-52.0)
[2017-12-28 07:31] LABS: HEMOGLOBIN 10.3 g/dl (14.0-18.0)
[2017-12-28] MEDS: DOCUSATE SODIUM 10 MG/ML (10ML CUP) NGT ×2 (08:40→22:22)
[2017-12-28] MEDS: FERROUS SULFATE 60 MG/ML 5ML CUP NGT (08:40)
[2017-12-28] MEDS: HEPARIN 5,000 UNIT/0.5 ML VIAL SC (08:43)
[2017-12-28] MEDS: ASPIRIN 81 MG TAB NGT (08:46)
[2017-12-28] MEDS: FAMOTIDINE 20 MG INJ IV (08:46)
[2017-12-28] MEDS: LISINOPRIL 5 MG TAB PO (08:47)
[2017-12-28] MEDS: BALSAM PERU/CASTOR OIL 60 GM TUBE TOP (08:50)
[2017-12-28] MEDS: VALPROATE INJ 250 MG in SOD CHLORIDE 0.9% 50 ML IVPB (08:50)
[2017-12-28] MEDS: SEVELAMER 400 MG TAB PO ×2 (12:00→17:28)
[2017-12-28] MEDS: EPOETIN 10000 UNITS/1 ML INJ (ESRD) SC (17:28)
[2017-12-28] MEDS: ATORVASTATIN 80 MG TAB PO (22:22)
[2017-12-28] MEDS: INSULIN GLARGINE [LANtus] 3 ML PEN SC (22:48)
== END 2017-12-29 00:10 | DRG 4 ==
LOC: TEL 11-26 06:47 → ICU 10-19 15:08 → E/R 09:35 → TEL 11:15
PROVIDERS: Internal Medicine
PROC: 0JH63XZ Insertion of Tunneled Vascular Access Device into Chest Subcutaneous Tissue and Fascia, Percutaneous Approach (ICD-10-PCS; 2017-11-08 14:00)
PROC: 02HV33Z Insertion of Infusion Device into Superior Vena Cava, Percutaneous Approach (ICD-10-PCS; 2017-11-08 14:00)
PROC: 02HV33Z Insertion of Infusion Device into Superior Vena Cava, Percutaneous Approach (ICD-10-PCS; principal; 2017-11-08 17:25)
PROC: 0B110F4 Bypass Trachea to Cutaneous with Tracheostomy Device, Open Approach (ICD-10-PCS; 2017-11-08 17:25)
PROC: 5A1955Z Respiratory Ventilation, Greater than 96 Consecutive Hours (ICD-10-PCS; 2017-11-08 17:25)
PROC: 0BH17EZ Insertion of Endotracheal Airway into Trachea, Via Natural or Artificial Opening (ICD-10-PCS; 2017-11-08 17:25)
PROC: 06HM33Z Insertion of Infusion Device into Right Femoral Vein, Percutaneous Approach (ICD-10-PCS; 2017-11-08 17:25)
PROC: 5A1D70Z Performance of Urinary Filtration, Intermittent, Less than 6 Hours Per Day (ICD-10-PCS; 2017-11-08 17:25)
PROC: 0BH18EZ Insertion of Endotracheal Airway into Trachea, Via Natural or Artificial Opening Endoscopic (ICD-10-PCS; 2017-11-08 17:25)
PROC: 0DH63UZ Insertion of Feeding Device into Stomach, Percutaneous Approach (ICD-10-PCS; 2017-11-08 17:25)
PROC: 0DJD8ZZ Inspection of Lower Intestinal Tract, Via Natural or Artificial Opening Endoscopic (ICD-10-PCS; 2017-11-08 17:25)
PROC: 0D20XUZ Change Feeding Device in Upper Intestinal Tract, External Approach (ICD-10-PCS; 2017-11-08 17:25)
PROC: 30233N1 Transfusion of Nonautologous Red Blood Cells into Peripheral Vein, Percutaneous Approach (ICD-10-PCS; 2017-11-08 17:25)
PROC: 5A1955Z Respiratory Ventilation, Greater than 96 Consecutive Hours (ICD-10-PCS; 2017-11-08 17:25)
PROC: 0D20XUZ Change Feeding Device in Upper Intestinal Tract, External Approach (ICD-10-PCS; 2017-11-08 17:25)
DX: A41.9 Sepsis, unspecified organism (principal); I21.4 Non-ST elevation (NSTEMI) myocardial infarction; I63.9 Cerebral infarction, unspecified; N17.0 Acute kidney failure with tubular necrosis; R65.21 Severe sepsis with septic shock; J18.9 Pneumonia, unspecified organism; G93.41 Metabolic encephalopathy; N18.6 End stage renal disease; J96.01 Acute respiratory failure with hypoxia; I50.43 Acute on chronic combined systolic (congestive) and diastolic (congestive) heart failure; I13.2 Hypertensive heart and chronic kidney disease with heart failure and with stage 5 chronic kidney disease, or end stage renal disease; T82.898A Other specified complication of vascular prosthetic devices, implants and grafts, initial encounter; K92.1 Melena; Z43.1 Encounter for attention to gastrostomy; E11.22 Type 2 diabetes mellitus with diabetic chronic kidney disease; E11.65 Type 2 diabetes mellitus with hyperglycemia; R13.10 Dysphagia, unspecified; D50.9 Iron deficiency anemia, unspecified; R45.1 Restlessness and agitation; E78.5 Hyperlipidemia, unspecified; I25.5 Ischemic cardiomyopathy; E66.9 Obesity, unspecified; E11.649 Type 2 diabetes mellitus with hypoglycemia without coma; R31.9 Hematuria, unspecified; Y83.8 Other surgical procedures as the cause of abnormal reaction of the patient, or of later complication, without mention of misadventure at the time of the procedure; Y92.238 Other place in hospital as the place of occurrence of the external cause; K56.41 Fecal impaction; R19.7 Diarrhea, unspecified; E83.39 Other disorders of phosphorus metabolism; Z68.38 Body mass index [BMI] 38.0-38.9, adult; Z89.422 Acquired absence of other left toe(s)
CPT/HCPCS: 31500; 36415; 36430; 36600; 70544; 70549; 70551; 70552; 71010; 71045; 74018; 74230; 76775; 80048; 80053; 80061; 80069; 80076; 80164; 80202; 80306; 81001; 81003; 82043; 82140; 82550; 82553; 82595; 82607; 82728; 82746; 82803; 82962; 83036; 83540; 83605; 83735; 84100; 84155; 84300; 84443; 84484; 85014; 85018; 85025; 85049; 85610; 85670; 85730; 86021; 86038; 86160; 86226; 86430; 86592; 86704; 86706; 86709; 86803; 86850; 86900; 86901; 86920; 87040; 87070; 87081; 87086; 87340; 87400; 89220; 90686; 90935; 92526; 92610; 92611; 93005; 93306; 93308; 93880; 94002; 94003; 94640; 94664; 94770; 96365; 96366; 96367; 96375; 97110; 97116; 97163; 97530; 99291-25

== ENCOUNTER → 2018-02-28 | Outpatient (CLI) | payer OTHER ==
[~2018-02-28] MED LIST: BARIUM SULFATE 135 ML (E-Z HD) PO
== END | disposition home or self-care (01) ==
LOC: RAD 07:53
DX: R13.10 Dysphagia, unspecified (principal)
CPT/HCPCS: 74230; 92611

== ENCOUNTER 2018-05-19 20:40 | Inpatient (IN) | payer OTHER ==
[2018-05-19] MEDS ORDERED: GLUCOSE GEL 15 GRAM TUBE PO ×2 (23:00)
[2018-05-19] MEDS ORDERED: HYDROCODONE/APAP (5/325) TAB PO (23:00)
[2018-05-19] MEDS ORDERED: DOCUSATE SODIUM 100 MG CAP PO (23:00)
[2018-05-19] MEDS ORDERED: GLUCAGON 1 MG INJ IM (23:00)
[2018-05-19] MEDS ORDERED: BISACODYL (EC) 5 MG TAB PO (23:00)
[2018-05-19] MEDS ORDERED: DEXTROSE 50% 50 ML SYRINGE IV ×2 (23:00)
[2018-05-19] MEDS ORDERED: GLUCOSE GEL 15 GRAM TUBE BUCCAL (23:00)
[2018-05-19] MEDS ORDERED: NACL 0.9% 3 ML SYG IV (23:00)
[2018-05-19 23:07] LABS: ADD MAN DIFF? NO
[2018-05-19 23:09] LABS: BASOPHIL # 0.1 10^3/ul (0.0-0.1); BASOPHILS % 0.3 % (0.0-2.0); EOSINOPHILS # 1.2 10^3/ul (0.0-0.5); EOSINOPHILS % 6.8 % (0.0-7.0); HEMOGLOBIN 8.9 g/dl (14.0-18.0); LYMPHOCYTES # 1.8 10^3/ul (0.8-2.9); LYMPHOCYTES % 10.9 % (15.0-51.0); MEAN CORPUSCULAR HEMOGLOBIN 23.4 pg (29.0-33.0); MEAN CORPUSCULAR HGB CONC 29.7 g/dl (32.0-37.0); MEAN CORPUSCULAR VOLUME 78.7 fl (82.0-101.0); MEAN PLATELET VOLUME 8.3 fl (7.4-10.4); MONOCYTE # 1.3 10^3/ul (0.3-0.9); MONOCYTES % 7.5 % (0.0-11.0); NEUTROPHIL # 12.5 10^3/ul (1.6-7.5); PLATELET COUNT 597 10^3/UL (140-415); RED BLOOD COUNT 3.81 10^6/ul (4.70-6.10); RED CELL DISTRIBUTION WIDTH 17.8 % (11.5-14.5)
[2018-05-19 23:09] LABS: WHITE BLOOD COUNT 16.9 10^3/ul (4.8-10.8)
[2018-05-19] MEDS: morphine 2 MG INJ IV (23:26)
[2018-05-19 23:37] LABS: ALANINE AMINOTRANSFERASE 72 IU/L (13-69); ALBUMIN 3.7 g/dl (3.3-4.9); ALBUMIN/GLOBULIN RATIO 0.94; ALKALINE PHOSPHATASE 162 IU/L (42-121); ANION GAP 16 (8-16); ASPARTATE AMINO TRANSFERASE 31 IU/L (15-46); BILIRUBIN,INDIRECT 0.1 mg/dl (0-1.1); BILIRUBIN,TOTAL 0.1 mg/dl (0.2-1.3); BLOOD UREA NITROGEN 50 mg/dl (7-20); CALCIUM 9.3 mg/dl (8.4-10.2); CARBON DIOXIDE 24 mmol/L (21-31); CHLORIDE 107 mmol/L (97-110); GLUCOSE 109 mg/dl (70-220); POTASSIUM 4.8 mmol/L (3.5-5.1); SODIUM 142 mmol/L (135-144); TOTAL PROTEIN 7.6 g/dl (6.1-8.1)
[2018-05-19] MEDS: HYDROmorphONE 0.5 MG/0.5 ML SYG IV (23:52)
[2018-05-20] MEDS: PIPER-TAZO 2.25 GM (PMX) 50 ML IVPB ×3 (01:05→20:27)
[2018-05-20] MEDS: HYDROCODONE/APAP (10/325) TAB PO ×2 (01:17→11:40)
[2018-05-20] MEDS: ACCU-CHEK XX (02:00)
[2018-05-20] MEDS: morphine 2 MG INJ IV ×2 (04:17→08:52)
[2018-05-20 06:09] LABS: ADD MAN DIFF? NO
[2018-05-20 06:21] LABS: BASOPHIL # 0.1 10^3/ul (0.0-0.1); BASOPHILS % 0.5 % (0.0-2.0); EOSINOPHILS # 1.2 10^3/ul (0.0-0.5); EOSINOPHILS % 9.1 % (0.0-7.0); HEMATOCRIT 28.5 % (42.0-52.0); HEMOGLOBIN 8.3 g/dl (14.0-18.0); MEAN CORPUSCULAR HEMOGLOBIN 22.8 pg (29.0-33.0); MEAN CORPUSCULAR HGB CONC 29.1 g/dl (32.0-37.0); MEAN CORPUSCULAR VOLUME 78.3 fl (82.0-101.0); MEAN PLATELET VOLUME 8.7 fl (7.4-10.4); MONOCYTE # 1.1 10^3/ul (0.3-0.9); MONOCYTES % 8.2 % (0.0-11.0); NEUTROPHILS % 66.7 % (39.0-77.0); PLATELET COUNT 552 10^3/UL (140-415); RED BLOOD COUNT 3.64 10^6/ul (4.70-6.10); RED CELL DISTRIBUTION WIDTH 17.9 % (11.5-14.5)
[2018-05-20 06:21] LABS: WHITE BLOOD COUNT 13.6 10^3/ul (4.8-10.8)
[2018-05-20 07:32] LABS: IRON 17 ug/dl (35-150)
[2018-05-20 07:39] LABS: ALANINE AMINOTRANSFERASE 61 IU/L (13-69); ALBUMIN 3.4 g/dl (3.3-4.9); ALBUMIN/GLOBULIN RATIO 0.91; ALKALINE PHOSPHATASE 136 IU/L (42-121); ANION GAP 15 (8-16); ASPARTATE AMINO TRANSFERASE 26 IU/L (15-46); BLOOD UREA NITROGEN 51 mg/dl (7-20); CALCIUM 9.2 mg/dl (8.4-10.2); CARBON DIOXIDE 23 mmol/L (21-31); CHLORIDE 108 mmol/L (97-110); CHOL/HDL RATIO 3.6 RATIO; CHOLESTEROL 84 mg/dl (100-200); GLUCOSE 94 mg/dl (70-220); HDL CHOLESTEROL 23 mg/dl (30-78); LDL CHOLESTEROL,CALCULATED 42 mg/dl; MAGNESIUM 2.1 mg/dl (1.7-2.5); PHOSPHORUS 6.3 mg/dl (2.5-4.9); POTASSIUM 4.7 mmol/L (3.5-5.1); SODIUM 141 mmol/L (135-144); TOTAL PROTEIN 7.1 g/dl (6.1-8.1); TRIGLYCERIDES 95 mg/dl (0-149)
[2018-05-20 07:41] LABS: % IRON SATURATION 9 % SAT (22-52); TOTAL IRON BINDING CAPACITY 182 ug/dl (241-421)
[2018-05-20 07:55] LABS: HEMOGLOBIN A1C 6.3 % (0-5.9)
[2018-05-20] MEDS: AMLODIPINE 5 MG TAB PO (08:56)
[2018-05-20] MEDS: BENAZEPRIL 20 MG TAB PO (08:56)
[2018-05-20] MEDS: ASPIRIN (EC) 81 MG TAB PO (08:56)
[2018-05-20] MEDS ORDERED: INSULIN GLARGINE [LANTus] (100 UNITS/ML) SYG SC (09:00)
[2018-05-20] MEDS: INSULIN ASPART [NOVOLOG] 3 ML PEN SC ×4 (09:04→20:28)
[2018-05-20 10:48] LABS: ADD UMIC YES; UR ASCORBIC ACID NEGATIVE (NEGATIVE); UR BACTERIA FEW /HPF (NONE SEEN); UR BILIRUBIN (Dip) NEGATIVE (NEGATIVE); UR BLOOD (Dip) NEGATIVE (NEGATIVE); UR BUDDING YEAST FEW /HPF (NONE SEEN); UR CLARITY CLEAR (CLEAR); UR COLOR YELLOW (YELLOW); UR GLUCOSE (Dip) NEGATIVE (NEGATIVE); UR KETONES (Dip) TRACE mg/dL (NEGATIVE); UR LEUKOCYTE ESTERASE (Dip) TRACE Leu/ul (NEGATIVE); UR NITRITE (Dip) NEGATIVE (NEGATIVE); UR RBC 2 /HPF (0-5); UR SPECIFIC GRAVITY (Dip) 1.015 (1.003-1.030); UR TOTAL PROTEIN (Dip) 2+ mg/dl (NEGATIVE); UR UROBILINOGEN (Dip) NEGATIVE (NEGATIVE); UR WBC 14 /HPF (0-5)
[2018-05-20 12:43] LABS: HEPATITIS B SURFACE ANTIGEN NEGATIVE (NEGATIVE)
[2018-05-20] MEDS: SOD FERRIC GLUC COMPLX 125 MG in SOD CHLORIDE 0.9% 100 ML IVPB (17:56)
[2018-05-20] MEDS: EPOETIN 10000 UNITS/1 ML INJ (ESRD) SC (17:57)
[2018-05-20] MEDS: ATORVASTATIN 20 MG TAB PO (20:27)
[2018-05-20] MEDS: INSULIN GLARGINE [LANTus] (100 UNITS/ML) SYG SC (20:35)
[2018-05-21] MEDS: morphine 2 MG INJ IV ×4 (00:32→15:10)
[2018-05-21] MEDS: ACCU-CHEK XX (01:43)
[2018-05-21] MEDS: HEPARIN 1000 UNITS/ML 10 ML INJ CATHETER (01:45)
[2018-05-21 01:46] LABS: HEPATITIS B SURFACE ANTIBODY POSITIVE (NEGATIVE)
[2018-05-21] MEDS: HYDROCODONE/APAP (10/325) TAB PO (03:34)
[2018-05-21 06:16] LABS: ADD MAN DIFF? NO; BASOPHIL # 0.1 10^3/ul (0.0-0.1); BASOPHILS % 0.4 % (0.0-2.0); EOSINOPHILS % 7.1 % (0.0-7.0); HEMATOCRIT 28.1 % (42.0-52.0); HEMOGLOBIN 8.3 g/dl (14.0-18.0); LYMPHOCYTES # 1.7 10^3/ul (0.8-2.9); LYMPHOCYTES % 12.9 % (15.0-51.0); MEAN CORPUSCULAR HEMOGLOBIN 23.2 pg (29.0-33.0); MEAN CORPUSCULAR HGB CONC 29.5 g/dl (32.0-37.0); MEAN CORPUSCULAR VOLUME 78.5 fl (82.0-101.0); MEAN PLATELET VOLUME 9.1 fl (7.4-10.4); MONOCYTE # 1.1 10^3/ul (0.3-0.9); MONOCYTES % 8.4 % (0.0-11.0); NEUTROPHIL # 9.5 10^3/ul (1.6-7.5); NEUTROPHILS % 70.8 % (39.0-77.0); PLATELET COUNT 525 10^3/UL (140-415); RED BLOOD COUNT 3.58 10^6/ul (4.70-6.10); RED CELL DISTRIBUTION WIDTH 17.7 % (11.5-14.5)
[2018-05-21 06:16] LABS: WHITE BLOOD COUNT 13.4 10^3/ul (4.8-10.8)
[2018-05-21 06:47] LABS: PHOSPHORUS 4.2 mg/dl (2.5-4.9)
[2018-05-21 06:47] LABS: ALANINE AMINOTRANSFERASE 58 IU/L (13-69); ALBUMIN 3.5 g/dl (3.3-4.9); ALBUMIN/GLOBULIN RATIO 0.92; ALKALINE PHOSPHATASE 145 IU/L (42-121); ANION GAP 12 (8-16); ASPARTATE AMINO TRANSFERASE 42 IU/L (15-46); BILIRUBIN,INDIRECT 0.1 mg/dl (0-1.1); BILIRUBIN,TOTAL 0.1 mg/dl (0.2-1.3); BLOOD UREA NITROGEN 28 mg/dl (7-20); CALCIUM 8.7 mg/dl (8.4-10.2); CARBON DIOXIDE 28 mmol/L (21-31); CHLORIDE 105 mmol/L (97-110); CREATININE 1.99 mg/dl (0.61-1.24); GLUCOSE 101 mg/dl (70-220); POTASSIUM 4.4 mmol/L (3.5-5.1); SODIUM 141 mmol/L (135-144); TOTAL PROTEIN 7.3 g/dl (6.1-8.1)
[2018-05-21 06:55] LABS: INR 1.28; PROTIME 16.2 Sec (11.9-14.9); PT RATIO 1.3
[2018-05-21 06:56] LABS: PARTIAL THROMBOPLASTIN TIME 51.4 Sec (25.0-35.0)
[2018-05-21] MEDS: INSULIN ASPART [NOVOLOG] 3 ML PEN SC ×4 (08:00→20:38)
[2018-05-21] MEDS: PIPER-TAZO 2.25 GM (PMX) 50 ML IVPB ×2 (10:01→20:43)
[2018-05-21] MEDS: BENAZEPRIL 20 MG TAB PO (10:01)
[2018-05-21] MEDS: ASPIRIN (EC) 81 MG TAB PO (10:01)
[2018-05-21] MEDS: AMLODIPINE 5 MG TAB PO (10:02)
[2018-05-21 14:49] LABS: C-REACTIVE PROTEIN 14.6 mg/dl (0.0-0.9)
[2018-05-21 15:46] LABS: ERYTHROCYTE SEDIMENTATION RATE 100 mm/Hr (0-20)
[2018-05-21] MEDS ORDERED: VANCOMYCIN IV PER PHARMACY XX (16:00)
[2018-05-21] MEDS: SOD FERRIC GLUC COMPLX 125 MG in SOD CHLORIDE 0.9% 100 ML IVPB (17:47)
[2018-05-21] MEDS: VANCOMYCIN 2 GM in SOD CHLORIDE 0.9% 500 ML IVPB (17:47)
[2018-05-21] MEDS: ATORVASTATIN 20 MG TAB PO (20:42)
[2018-05-21] MEDS: INSULIN GLARGINE [LANTus] (100 UNITS/ML) SYG SC (20:47)
[2018-05-22] MEDS: ACCU-CHEK XX (02:40)
[2018-05-22] MEDS: morphine 2 MG INJ IV ×2 (02:40→08:51)
[2018-05-22] MEDS: HYDROCODONE/APAP (10/325) TAB PO ×4 (04:30→23:43)
[2018-05-22 07:38] LABS: ADD MAN DIFF? NO
[2018-05-22 07:45] LABS: BASOPHIL # 0.1 10^3/ul (0.0-0.1); BASOPHILS % 0.7 % (0.0-2.0); EOSINOPHILS # 0.8 10^3/ul (0.0-0.5); EOSINOPHILS % 5.3 % (0.0-7.0); HEMATOCRIT 28.6 % (42.0-52.0); HEMOGLOBIN 8.4 g/dl (14.0-18.0); LYMPHOCYTES % 12.9 % (15.0-51.0); MEAN CORPUSCULAR HEMOGLOBIN 23.3 pg (29.0-33.0); MEAN CORPUSCULAR HGB CONC 29.4 g/dl (32.0-37.0); MEAN CORPUSCULAR VOLUME 79.2 fl (82.0-101.0); MEAN PLATELET VOLUME 9.3 fl (7.4-10.4); MONOCYTE # 1.1 10^3/ul (0.3-0.9); NEUTROPHIL # 11.1 10^3/ul (1.6-7.5); NEUTROPHILS % 73.5 % (39.0-77.0); PLATELET COUNT 496 10^3/UL (140-415); RED BLOOD COUNT 3.61 10^6/ul (4.70-6.10); RED CELL DISTRIBUTION WIDTH 17.7 % (11.5-14.5)
[2018-05-22 07:45] LABS: WHITE BLOOD COUNT 15.1 10^3/ul (4.8-10.8)
[2018-05-22] MEDS: INSULIN ASPART [NOVOLOG] 3 ML PEN SC ×3 (08:00→20:34)
[2018-05-22 08:04] LABS: INR 1.28; PROTIME 16.2 Sec (11.9-14.9); PT RATIO 1.3
[2018-05-22 08:12] LABS: PHOSPHORUS 4.7 mg/dl (2.5-4.9)
[2018-05-22 08:19] LABS: ALANINE AMINOTRANSFERASE 60 IU/L (13-69); ALBUMIN 3.1 g/dl (3.3-4.9); ALBUMIN/GLOBULIN RATIO 0.91; ALKALINE PHOSPHATASE 136 IU/L (42-121); ANION GAP 16 (8-16); ASPARTATE AMINO TRANSFERASE 33 IU/L (15-46); BILIRUBIN,INDIRECT 0.1 mg/dl (0-1.1); BILIRUBIN,TOTAL 0.1 mg/dl (0.2-1.3); BLOOD UREA NITROGEN 26 mg/dl (7-20); CALCIUM 8.6 mg/dl (8.4-10.2); CARBON DIOXIDE 26 mmol/L (21-31); CHLORIDE 106 mmol/L (97-110); CREATININE 2.33 mg/dl (0.61-1.24); GLUCOSE 72 mg/dl (70-220); SODIUM 143 mmol/L (135-144); TOTAL PROTEIN 6.5 g/dl (6.1-8.1)
[2018-05-22] MEDS: ASPIRIN (EC) 81 MG TAB PO (08:46)
[2018-05-22] MEDS: PIPER-TAZO 2.25 GM (PMX) 50 ML IVPB (08:46)
[2018-05-22] MEDS: BENAZEPRIL 20 MG TAB PO (08:47)
[2018-05-22] MEDS: AMLODIPINE 5 MG TAB PO (08:47)
[2018-05-22] MEDS ORDERED: PIPER-TAZO 2.25 GM (PMX) 50 ML IVPB (14:00)
[2018-05-22] MEDS: HEPARIN 1000 UNITS/ML 10 ML INJ CATHETER (16:04)
[2018-05-22] MEDS: morphine LIQ (10 MG/5 ML) CUP PO ×2 (17:21→22:03)
[2018-05-22] MEDS: SOD FERRIC GLUC COMPLX 125 MG in SOD CHLORIDE 0.9% 100 ML IVPB (18:35)
[2018-05-22] MEDS: ATORVASTATIN 20 MG TAB PO (20:33)
[2018-05-22] MEDS: INSULIN GLARGINE [LANTus] (100 UNITS/ML) SYG SC (20:34)
[2018-05-22] MEDS: ACETAMINOPHEN 325 MG TAB PO (20:35)
[2018-05-23] MEDS: ACCU-CHEK XX ×2 (01:16→01:17)
[2018-05-23] MEDS: morphine LIQ (10 MG/5 ML) CUP PO ×4 (02:31→17:40)
[2018-05-23] MEDS: HYDROCODONE/APAP (10/325) TAB PO (05:00)
[2018-05-23 05:33] LABS: ADD MAN DIFF? NO
[2018-05-23 05:40] LABS: WHITE BLOOD COUNT 12.7 10^3/ul (4.8-10.8)
[2018-05-23 05:40] LABS: BASOPHIL # 0.1 10^3/ul (0.0-0.1); BASOPHILS % 0.9 % (0.0-2.0); EOSINOPHILS # 0.9 10^3/ul (0.0-0.5); EOSINOPHILS % 7.3 % (0.0-7.0); HEMOGLOBIN 8.5 g/dl (14.0-18.0); LYMPHOCYTES # 2.4 10^3/ul (0.8-2.9); LYMPHOCYTES % 18.9 % (15.0-51.0); MEAN CORPUSCULAR HEMOGLOBIN 23.2 pg (29.0-33.0); MEAN CORPUSCULAR HGB CONC 29.3 g/dl (32.0-37.0); MEAN PLATELET VOLUME 9.4 fl (7.4-10.4); MONOCYTE # 1.1 10^3/ul (0.3-0.9); NEUTROPHIL # 8.1 10^3/ul (1.6-7.5); NEUTROPHILS % 63.5 % (39.0-77.0); PLATELET COUNT 496 10^3/UL (140-415); RED BLOOD COUNT 3.67 10^6/ul (4.70-6.10); RED CELL DISTRIBUTION WIDTH 17.6 % (11.5-14.5)
[2018-05-23 06:37] LABS: PHOSPHORUS 4.1 mg/dl (2.5-4.9)
[2018-05-23 06:58] LABS: ANION GAP 11 (8-16); BLOOD UREA NITROGEN 14 mg/dl (7-20); CALCIUM 8.6 mg/dl (8.4-10.2); CARBON DIOXIDE 30 mmol/L (21-31); CHLORIDE 104 mmol/L (97-110); CREATININE 1.89 mg/dl (0.61-1.24); GLUCOSE 65 mg/dl (70-220); SODIUM 141 mmol/L (135-144)
[2018-05-23] MEDS: INSULIN ASPART [NOVOLOG] 3 ML PEN SC ×3 (07:50→17:39)
[2018-05-23] MEDS: BENAZEPRIL 20 MG TAB PO (07:52)
[2018-05-23] MEDS: ASPIRIN (EC) 81 MG TAB PO (07:52)
[2018-05-23] MEDS: AMLODIPINE 5 MG TAB PO (07:53)
[2018-05-23] MEDS: ALBUTEROL/IPRATROPIUM (NEB) 3 ML AMP HHN (11:54)
[2018-05-23] MEDS: SOD FERRIC GLUC COMPLX 125 MG in SOD CHLORIDE 0.9% 100 ML IVPB (17:41)
[2018-05-23] MEDS: EPOETIN 10000 UNITS/1 ML INJ (ESRD) SC (17:41)
[2018-05-23] MEDS ORDERED: INSULIN GLARGINE [LANTus] (100 UNITS/ML) SYG SC (20:00)
== END 2018-05-23 20:05 | DRG 551 ==
LOC: MS4 22:52 → E/R 20:40 → MS1 05-22 11:48
PROC: 5A1D70Z Performance of Urinary Filtration, Intermittent, Less than 6 Hours Per Day (ICD-10-PCS; principal; 2018-05-20)
DX: M43.16 Spondylolisthesis, lumbar region (principal); N18.6 End stage renal disease; N39.0 Urinary tract infection, site not specified; I13.2 Hypertensive heart and chronic kidney disease with heart failure and with stage 5 chronic kidney disease, or end stage renal disease; I50.32 Chronic diastolic (congestive) heart failure; E11.9 Type 2 diabetes mellitus without complications; D50.9 Iron deficiency anemia, unspecified; I25.2 Old myocardial infarction; E11.22 Type 2 diabetes mellitus with diabetic chronic kidney disease; E78.5 Hyperlipidemia, unspecified; B95.2 Enterococcus as the cause of diseases classified elsewhere; M54.16 Radiculopathy, lumbar region; I25.10 Atherosclerotic heart disease of native coronary artery without angina pectoris; Z86.73 Personal history of transient ischemic attack (TIA), and cerebral infarction without residual deficits; Z79.4 Long term (current) use of insulin; Z99.2 Dependence on renal dialysis; R74.0 Nonspecific elevation of levels of transaminase and lactic acid dehydrogenase [LDH]
CPT/HCPCS: 36415; 71045; 72148; 72157; 72158; 72195; 76705; 80048; 80053; 80061; 81001; 82306; 82652; 82962; 83036; 83540; 83735; 84100; 84443; 85025; 85610; 85651; 85730; 86140; 86706; 87081; 87086; 87340; 90935; 92610; 94664; 99285-25